=== PATIENT | female | born 1930 | race Caucasian/White ===

== ENCOUNTER 2016-06-10 18:48 | Emergency (ER) | payer BC, OTHER ==
[2016-06-10 18:57] VITALS: BP 125/57; PULSE 78; TEMP 98.2; BMI 26.8
--- NOTE | 2016-06-10 20:24 | PDOC ---
History of Present Illness - General History Source: Patient, Family, Old Records Exam Limitations: No Limitations - History of Present Illness Initial Comments: 06/10/16 20:32 The patient is a 86 year old female, accompanied by daughter, with a significant past medical history of UTI, mild dementia, cardiac disease, hypertension, bladder cancer, and diabetes who presents to the emergency department today for further evaluation of confusion for four days. As per daughter, the patient has not been responding to normal daily events appropriately and has difficulty completing basic tasks. As per daughter the patient has frequently starred off at nothing for extended periods of time and has been confusing her medications. The patient has been receiving BCG treatments since becoming cancer free in March. UROLOGIST: Dr. Owen Velazquez [phone] <Félix Thacker - Last Filed: 06/11/16 00:34> <Elena Brasher - Last Filed: 06/11/16 01:58> - General Chief Complaint: Altered Mental Status Stated Complaint: CONFUSED Time Seen by Provider: 06/10/16 19:23 Past History <Félix Thacker - Last Filed: 06/11/16 00:34> - Past Medical History Cardiac Disorders: Yes DVT: Yes (1970'S/PHLEBITIS) Dementia: Yes (MILD?) Diabetes: Yes HTN: Yes - Surgical History Appendectomy: Yes Cardiac Surgery: Yes (QUAD BYPASS 1995) - Immunization History Immunization Up to Date: Yes (FLU ) - Psycho/Social/Smoking Cessation Hx Anxiety: No Suicidal Ideation: No Smoking History: Never smoked Have you smoked in the past 12 months: No Number of Cigarettes Smoked Daily: 0 Hx Alcohol Use: No Drug/Substance Use Hx: No Substance Use Type: None <Elena Brasher - Last Filed: 06/11/16 01:58> - Past Medical History Allergies/Adverse Reactions: Allergies Allergy/AdvReac Type Severity Reaction Status Date / Time No Known Allergies Allergy Verified 06/10/16 18:57 Home Medications: Ambulatory Orders Aspirin [ASA -] 81 mg PO DAILY 02/04/16 Isosorbide Mononitrate [Imdur -] 60 mg PO DAILY 02/04/16 Metformin HCl [Metformin HCl ER] 500 mg PO BID 02/04/16 Metoprolol Succinate [Toprol Xl] 50 mg PO HS 02/04/16 Lisinopril [Prinivil] 20 mg PO DAILY tablet 02/07/16 Cefuroxime Axetil [Ceftin -] 500 mg PO Q12H #20 tablet 06/11/16 Review of Systems - Review of Systems Able to Perform ROS?: Yes Comments:: 06/10/16 20:32 CONSTITUTIONAL: Absent: fever, chills, diaphoresis, generalized weakness, malaise, loss of appetite HEENT: Absent: rhinorrhea, nasal congestion, throat pain, throat swelling, difficulty swallowing, mouth swelling, ear pain, eye pain, visual Changes CARDIOVASCULAR: Absent: chest pain, syncope, palpitations, irregular heart rate, lightheadedness , peripheral edema RESPIRATORY: Absent: cough, shortness of breath, dyspnea with exertion, orthopnea, wheezing, stridor, hemoptysis GASTROINTESTINAL: Absent: abdominal pain, abdominal distension, nausea, vomiting, diarrhea, constipation, melena, hematochezia GENITOURINARY: Absent: dysuria, frequency, urgency, hesitancy, hematuria, flank pain, genital pain MUSCULOSKELETAL: Absent: myalgia, arthralgia, joint swelling SKIN: Absent: rash, itching, pallor HEMATOLOGIC/IMMUNOLOGIC: Absent: easy bleeding, easy bruising, lymphadenopathy, frequent infections ENDOCRINE: Absent: unexplained weight gain, unexplained weight loss, heat intolerance, cold intolerance NEUROLOGIC: Absent: headache, focal weakness or paresthesias, dizziness, unsteady gait, seizure, mental status changes, bladder or bowel incontinence PSYCHIATRIC: Present: Confusion Absent: anxiety, depression, suicidal or homicidal ideation, hallucinations. <Félix Thacker - Last Filed: 06/11/16 00:34> *Physical Exam - Vital Signs Last Vital Signs Temp Pulse Resp BP Pulse Ox 98.2 F 78 20 125/57 98 06/10/16 18:52 06/10/16 18:52 06/10/16 18:52 06/10/16 18:52 06/10/16 18:52 - Physical Exam Comments: 06/10/16 20:32 GENERAL: Well developed, well nourished. Awake and alert. No acute distress. HEENT: Normocephalic, atraumatic. PERRLA, EOMI. No conjunctival pallor. Sclera are non- icteric. Moist mucous membranes. Oropharynx is clear. NECK: Supple. Full ROM. No JVD. Carotid pulses 2+ and symmetric, without bruits. No thyromegaly. No lymphadenopathy. CARDIOVASCULAR: (+) Holosystolic murmur Regular rate and rhythm. No rubs, or gallops. Distal pulses are 2+ and symmetric. PULMONARY: No evidence of respiratory distress. Lungs clear to auscultation bilaterally. No wheezing, rales or rhonchi. ABDOMINAL: Soft. Non-tender. Non-distended. No rebound or guarding. No organomegaly. Normoactive bowel sounds. MUSCULOSKELETAL Normal range of motion at all joints. No bony deformities or tenderness. No CVA tenderness. EXTREMITIES: (+) 2+ pitting edema. No cyanosis. No clubbing. No calf tenderness. SKIN: Warm and dry. Normal capillary refill. No rashes. No jaundice. NEUROLOGICAL: Alert, awake, appropriate. Cranial nerves 2-12 intact. No deficits to light touch and temperature in face, upper extremities and lower extremities. No motor deficits in the in face, upper extremities and lower extremities. Normoreflexic in the upper and lower extremities. Normal speech. Toes are down-going bilaterally. PSYCHIATRIC: Cooperative. Good eye contact. Appropriate mood and affect <Félix Thacker - Last Filed: 06/11/16 00:34> - Vital Signs Last Vital Signs Temp Pulse Resp BP Pulse Ox 98.2 F 78 20 125/57 98 06/10/16 18:52 06/10/16 18:52 06/10/16 18:52 06/10/16 18:52 06/10/16 18:52 <Elena Brasher - Last Filed: 06/11/16 01:58> Heart Score/ECG Review - ST and T Comment:: 06/10/16 20:33 ECG. IMPRESSION: Normal sinus rhythm. Septal infarct, age undetermined. Abnormal ECG. <Félix Thacker - Last Filed: 06/11/16 00:34> ED Treatment Course - LABORATORY CBC & Chemistry Diagram: 06/10/16 20:40 06/10/16 20:40 - RADIOLOGY Radiograph Interpretation: 06/10/16 20:53 1. CXR IMPRESSION: No official read. No acute findings. <Félix Thacker - Last Filed: 06/11/16 00:34> - LABORATORY CBC & Chemistry Diagram: 06/10/16 20:40 06/10/16 20:40 - RADIOLOGY Radiology Studies Ordered: Category Date Time Status CHEST X-RAY PORTABLE* [RAD] Stat Radiology 06/10/16 19:52 Taken <Elena Brasher - Last Filed: 06/11/16 01:58> Medical Decision Making - Medical Decision Making 06/11/16 00:[address] Armendariz. Dr. Francis is instructional coach. 06/11/16 00:36 Dr. Francis called into ER. Case discussed. Agreed to discharge. <Félix Thacker - Last Filed: 06/11/16 00:34> - Medical Decision Making 06/11/16 00:[address] Francis and reviewed the case -pt is receiving IVF and antibiotics for UTI -cbc is wnl -chemistry elevated bun=59, cr=1.1 -ct scan head :no acute intracranial pathology -neurology no gross focal deficits <Elena Brasher - Last Filed: 06/11/16 01:58> *DC/Admit/Observation/Transfer <Félix Thacker - Last Filed: 06/11/16 00:34> <Elena Brasher - Last Filed: 06/11/16 01:58> Diagnosis at time of Disposition: Dehydration UTI (urinary tract infection) Qualifiers: Urinary tract infection type: site unspecified Hematuria presence: without hematuria Qualified Code(s): N39.0 - Urinary tract infection, site not specified - Discharge Dispostion Disposition: HOME Condition at time of disposition: Stable - Prescriptions Prescriptions: Cefuroxime Axetil [Ceftin -] 500 mg PO Q12H #20 tablet - Referrals Referrals: Jaswant Armendariz MD [Primary Care Provider] - - Patient Instructions Printed Discharge Instructions: DI for Dehydration -- Adult, DI for Urinary Tract Infection (UTI) Additional Instructions: -please keep your doctor's appointment this week -please picker / packer your antibiotics at your pharmacy -It is important to keep well hydrated and drink water -return for any worsening symptoms
[2016-06-10 20:39] LABS: URINE APPEARANCE SLCLOUDY; URINE BILIRUBIN NEGATIVE (NEGATIVE); URINE COLOR DKYELLOW; URINE GLUCOSE (UA) NEGATIVE (NEGATIVE); URINE KETONE NEGATIVE (NEGATIVE); URINE NITRITE NEGATIVE (NEGATIVE); URINE PROTEIN NEGATIVE (NEGATIVE); URINE UROBILINOGEN NEGATIVE E.U./dl (0.2-1.0)
[2016-06-10 20:40] LABS: URINE BLOOD 2+ (NEGATIVE); URINE LEUK ESTERASE 1+ (NEGATIVE)
[2016-06-10 20:50] LABS: URINE MUCUS RARE; URINE RBC 58 /hpf (0-3); URINE WBC 35 /hpf (3-5)
[2016-06-10 20:51] LABS: EOSINOPHIL 4.3 % (0-4.5); MEAN CELL VOLUME 90.9 fl (80-96); MEAN PLT VOLUME 10.6 fl (7.5-11.1); NEUTROPHILS 65.5 % (42.8-82.8); PLATELET COUNT 183 K/MM3 (134-434); RDW 13.5 % (11.6-15.6); WHITE BLOOD COUNT 7.9 K/mm3 (4.0-10.0)
[2016-06-10 21:05] LABS: INR 0.96 (0.82-1.09); PROTHROMBIN TIME (PATIENT) 10.6 SEC (9.98-11.88)
[2016-06-10 21:23] LABS: ALBUMIN 3.7 g/dl (3.4-5.0); ALK PHOS 80 U/L (45-117); ANION GAP 9 (8-16); BILIRUBIN,TOTAL 0.1 mg/dL (0.2-1.0); CALCIUM 8.6 mg/dL (8.5-10.1); CO2 26 mmol/L (21-32); CREATININE 1.1 mg/dL (0.55-1.02); GLUCOSE,RANDOM 114 mg/dL (74-106); SGPT/ALT 20 U/L (12-78); TOT PROT 6.7 g/dl (6.4-8.2)
[2016-06-10 21:28] LABS: SGOT/AST 20 U/L (15-37); TROPONIN I < 0.02 ng/ml (0.00-0.05)
[2016-06-10] MEDS ORDERED: SODIUM CHLORIDE 1,000 ML IV STA (21:44)
[2016-06-10] MEDS ORDERED: LEVOFLOXACIN 500 MG IVPB 100 ML IVPB ONE ×2 (22:18→22:24)
--- NOTE | 2016-06-11 12:37 | EKG ---
Test Reason : Blood Pressure : / mmHG Vent. Rate : 077 BPM Atrial Rate : 077 BPM P-R Int : 118 ms QRS Dur : 090 ms QT Int : 380 ms P-R-T Axes : 046 -02 054 degrees QTc Int : 430 ms NORMAL SINUS RHYTHM SEPTAL INFARCT (CITED ON OR BEFORE 04-FEB-2016) ABNORMAL ECG WHEN COMPARED WITH ECG OF 04-FEB-2016 12:06, NO SIGNIFICANT CHANGE WAS FOUND Confirmed by KEITH RASHID, CYN ([id number]) on 06/11/2016 12:36:56 PM Referred By: Confirmed By:CYN PARKER MD
== END 2016-06-11 02:41 | disposition home or self-care (01) ==
LOC: JER 18:48
PROC: 3E0337Z Introduction of Electrolytic and Water Balance Substance into Peripheral Vein, Percutaneous Approach (ICD-10-PCS; principal; 2016-06-10)
PROC: 3E03329 Introduction of Other Anti-infective into Peripheral Vein, Percutaneous Approach (ICD-10-PCS; 2016-06-10)
DX: N39.0 Urinary tract infection, site not specified (principal); E86.0 Dehydration; I25.810 Atherosclerosis of coronary artery bypass graft(s) without angina pectoris; I10 Essential (primary) hypertension; Z95.1 Presence of aortocoronary bypass graft; E11.9 Type 2 diabetes mellitus without complications; Z79.84 Long term (current) use of oral hypoglycemic drugs
CPT/HCPCS: 36415; 70450-TC; 71010-TC; 80053; 81003; 81015; 82550; 84484; 85025; 85610; 87086; 93005; 93010; 96361; 96365; 99283-25

== ENCOUNTER 2016-10-07 23:55 | Inpatient (IN) | payer BC, OTHER ==
--- NOTE | 2016-10-08 00:13 | PDOC ---
History of Present Illness - History of Present Illness Initial Comments: 10/08/16 00:31 The patient is a 86 year old female, accompanied by daughter, with a significant past medical history of UTIs, mild dementia, cardiac disease, hypertension, bladder cancer, and diabetes who presents to the emergency department today with altered mental status s/p witnessed mechanical fall with posterior head trauma at 1:30PM. As per the patient's daughter, her mother had a mechanical fall, backwards with her rolling walker, and hit the back of her head on a concrete floor outside. The patient's daughter states the patient would not wake up prior to arrival, but states that when her mother did wake up , she could not recognize her daughter. <Lucia Ashby - Last Filed: 10/08/16 01:05> <Elena Brasher - Last Filed: 10/08/16 02:51> - General Chief Complaint: Altered Mental Status Stated Complaint: ALTERED MENTAL STATUS Time Seen by Provider: 10/08/16 00:00 Past History <Lucia Ashby - Last Filed: 10/08/16 01:05> - Past Medical History Cardiac Disorders: Yes DVT: Yes (1970'S/PHLEBITIS) Dementia: Yes (MILD?) Diabetes: Yes HTN: Yes - Surgical History Appendectomy: Yes Cardiac Surgery: Yes (QUAD BYPASS 1995) - Immunization History Immunization Up to Date: Yes (FLU ) - Psycho/Social/Smoking Cessation Hx Anxiety: No Suicidal Ideation: No Smoking History: Never smoked Have you smoked in the past 12 months: No Number of Cigarettes Smoked Daily: 0 Hx Alcohol Use: No Drug/Substance Use Hx: No Substance Use Type: None <Elena Brasher - Last Filed: 10/08/16 02:51> - Past Medical History Allergies/Adverse Reactions: Allergies Allergy/AdvReac Type Severity Reaction Status Date / Time No Known Allergies Allergy Verified 06/10/16 18:57 Home Medications: Ambulatory Orders Aspirin [ASA -] 81 mg PO DAILY 02/04/16 Isosorbide Mononitrate [Imdur -] 60 mg PO DAILY 02/04/16 Metformin HCl [Metformin HCl ER] 500 mg PO BID 02/04/16 Metoprolol Succinate [Toprol Xl] 50 mg PO HS 02/04/16 Lisinopril [Prinivil] 20 mg PO DAILY tablet 02/07/16 Review of Systems - Review of Systems Able to Perform ROS?: No (altered) <Lucia Ashby - Last Filed: 10/08/16 01:05> *Physical Exam - Physical Exam Comments: 10/08/16 00:35 GENERAL: (+) oriented to person and place, however, did not know age or month. Well developed, well nourished. Awake and alert. No acute distress. HEENT: Normocephalic, atraumatic. PERRLA, EOMI. No conjunctival pallor. Sclera are non- icteric. Moist mucous membranes. Oropharynx is clear. NECK: Supple. Full ROM. No JVD. Carotid pulses 2+ and symmetric, without bruits. No thyromegaly. No lymphadenopathy. CARDIOVASCULAR: Regular rate and rhythm. No murmurs, rubs, or gallops. Distal pulses are 2+ and symmetric. PULMONARY: No evidence of respiratory distress. Lungs clear to auscultation bilaterally. No wheezing, rales or rhonchi. ABDOMINAL: Soft. Non-tender. Non-distended. No rebound or guarding. No organomegaly. Normoactive bowel sounds. MUSCULOSKELETAL Normal range of motion at all joints. No bony deformities or tenderness. No CVA tenderness. EXTREMITIES: No cyanosis. No clubbing. No edema. No calf tenderness. SKIN: Warm and dry. Normal capillary refill. No rashes. No jaundice. NEUROLOGICAL: (+)dysmetria with [id number]. awake and alert to person and place, however, did not know age or month. Cranial nerves 2-12 intact. Normoreflexic in the upper and lower extremities. Normal speech. Toes are down-going bilaterally. No field cuts. No facial droop. Sensation intact to light touch. PSYCHIATRIC: Cooperative. Good eye contact. Appropriate mood and affect. <Lucia Ashby - Last Filed: 10/08/16 01:05> NIH Stroke Scale - Last Known Well Date/Time & Onset Date Last Known Well: 10/07/16 Time Last Known Well: 20:30 - Initial Evaluation Level of consciousness: Alert Ask patient the month and their age: Both incorrect Ask patient to open & close eyes; make fist and let go: Obeys both correctly Best gaze (horizontal eye movement): Normal Visual field testing: No visual field loss Facial paresis (Show teeth/raise eyebrows/close eyes tight): Normal symmetrical movement Motor Function: Left Arm: Normal Motor Function: Right Arm: Normal (extends arm 90 (or 45) degrees for 10 seconds without drift Motor Function: Left Leg: Normal (extends leg 30 degrees for 5 seconds without drift) Motor Function: Right Leg: Normal (extends leg 30 degrees for 5 seconds without drift) Limb Ataxia: Present in one limb Sensory(Use pinprick test arms,legs,trunk,face/side to side): Normal Best language (Describe picture, name items, read sentences): No Aphasia Dysarthria (read several words): Normal articulation Extinction and Inattention: No abnormality - Total Score NIH Stroke Scale Score: 3 <Elena Brasher - Last Filed: 10/08/16 02:51> tPA Exclusion checklist 3-4.5h - Time Elapsed Date last known well: 10/07/16 Time last known well: 20:30 Elaspsed time: Day(s) and 6 Hour(s) and 17 Minutes - Thrombolytic Therapy Candidate Is patient eligible for thrombolytic therapy: No - Exclusion Criteria 3-4.5 hr SBP greater than 185 or DBP greater than 110mmHg despite tx: No Recent IC/spinal surgery,head trauma or stroke<3mos.: No Hx IC hemorrhage, IC neoplasm, AV malformation or aneurysm: No Active internal bleeding: No Blding diathesis(low plt ct, inc PTT,INR>1.7 or use of NOAC): No Symptoms suggest subarachnoid hemorrhage: No CT demonstrates multilobar infarct(>1/3 cerebral hemiphere): No Arterial puncture at noncompressible site in previous 7 days: No Blood glucose concentration less than 50mg/dL (2.7mmol/L): No - Relative Exclusion Criteria 3-4.5 hr Life expectancy <1 yr or severe co-morbid illness: No : No Patient/family refused: No Rapid improvement: Yes Stroke severity too mild: Yes Recent acute OR (w/in previous 3 months): No Seizure at onset with postictal residual neuro impairments: No Major surgery or serious trauma w/in previous 14 days: No Recent GI or hemorrhage (w/in previous 21 days): No - Add'l Relative Exclusion 3-4.5 hr Age > 80: Yes Hx of both diabetes AND prior ischemic stroke: No Taking an oral anticoagulant regardless of INR: Yes NIHSS >25: No - Ineligibility reason(s) Reasons No tPA given: See reason(s) noted above (too mild) <Elena Brasher - Last Filed: 10/08/16 02:51> Critical Care Time/MDM Note - Medical Decision Making Note: 10/08/16 00:39 Documentation prepared by Lucia Ashby, acting as medical research tech for Elena Brasher MD <Lucia Ashby - Last Filed: 10/08/16 01:05> - Medical Decision Making Note: 10/08/16 01:36 86-year-old female brought in by ambulance for confusion. The daughter stated that 1:30 this afternoon. She fell backwards onto cement. She was evaluated by paramedics who felt that she was fine and this evening she noted about a 30 that she seemed to be confused and didn't recognize her daughter. Upon arrival NIH stroke scale was 380 with some confusion as to her age, the month and some ataxia. Patient was afebrile Past medical history significant for ongoing treatment for bladder cancer. She' s been receiving BCG. The last treatment being given about 10 days ago. The daughter states that she cc quite confused for several days after each treatment. Social history has been becoming more fatigued and easily falling asleep during the day. She was evaluated by Dr. Rosa Andrews math coach last Saturday. CAT scan of the head showed no fracture, no intracranial bleed, there was some loss of benjamin white matter in the inferior frontal lobes that may reflect early ischemia. I did speak with radiologist and he felt that this probably was an artifact. There are chronic appearing involutional changes due to aging 10/08/16 01:38 <Elena Brasher - Last Filed: 10/08/16 02:51> Discharge Disposition <Lucia Ashby - Last Filed: 10/08/16 01:05> - Discharge Dispostion Admit: Yes <Elena Brasher - Last Filed: 10/08/16 02:51> - Diagnosis UTI (urinary tract infection) Qualifiers: Urinary tract infection type: site unspecified Hematuria presence: without hematuria Qualified Code(s): N39.0 - Urinary tract infection, site not specified Altered mental status Qualifiers: Altered mental status type: unspecified Qualified Code(s): R41.82 - Altered mental status, unspecified Malignant neoplasm of urinary bladder Qualifiers: Bladder location: unspecified site Qualified Code(s): C67.9 - Malignant neoplasm of bladder, unspecified - Discharge Dispostion Condition at time of disposition: Good ED Treatment Course - LABORATORY CBC & Chemistry Diagram: 10/08/16 00:27 10/08/16 00:27 - ADDITIONAL ORDERS Additional order review: Laboratory Results 10/08/16 00:27 INR 0.95 10/08/16 00:27 RBC 3.53 L MCV 88.5 MCHC 32.3 RDW 13.4 MPV 10.4 Neutrophils % 61.5 Lymphocytes % 23.1 Monocytes % 10.5 H Eosinophils % 3.8 Basophils % 1.1 - RADIOLOGY Radiograph Interpretation: 10/08/16 01:05 EXAM: CTHEAD CT (STROKE) was read by Shayan Pisano MD 10/08/2016 01:00 EST HISTORY:Altered mental status and weakness COMPARISON: None. TECHNIQUE: CT Head with serial axial images extending from the vertex to the base of skull was performed without vascular contrast. FINDINGS: Brain parenchyma is normal in attenuation with no mass or hematoma. There is no midline shift. There is some lucency in the periventricular white matter. There is some loss of benjamin-white matter differentiation in the inferior frontal lobes bilaterally Ventricles are mildly prominent. Sulci and extra-axial CSF spaces are mildly prominent. Intracranial vascular structures are normal in attenuation. There is no calvarial fracture. Paranasal sinuses are normally aerated. IMPRESSION: No intracranial mass or bleed Some loss of benjamin-white matter differentiation in the inferior frontal lobes may reflect early ischemia. Correlation with history and exam is recommended Chronic appearing involutional changes of aging <Lucia Ashby - Last Filed: 10/08/16 01:05> - LABORATORY CBC & Chemistry Diagram: 10/08/16 00:27 10/08/16 00:27 <Elena Brasher - Last Filed: 10/08/16 02:51>
[2016-10-08] MEDS ORDERED: SODIUM CHLORIDE 1,000 ML IV SCH ×2 (00:30→04:00)
[2016-10-08 00:37] LABS: BASOPHIL 1.1 % (0-2.0); EOSINOPHIL 3.8 % (0-4.5); MCH 28.5 pg (25.7-33.7); MCHC 32.3 g/dl (32.0-36.0); MEAN CELL VOLUME 88.5 fl (80-96); MEAN PLT VOLUME 10.4 fl (7.5-11.1); NEUTROPHILS 61.5 % (42.8-82.8); PLATELET COUNT 159 K/MM3 (134-434); RDW 13.4 % (11.6-15.6); WHITE BLOOD COUNT 7.5 K/mm3 (4.0-10.0)
[2016-10-08 00:55] LABS: INR 0.95 (0.82-1.09); PROTHROMBIN TIME (PATIENT) 10.4 SEC (9.98-11.88)
[2016-10-08 01:04] LABS: ALBUMIN 3.2 g/dl (3.4-5.0); ANION GAP 8 (8-16); CALCIUM 8.6 mg/dL (8.5-10.1); CHOLESTEROL 138 mg/dL (50-200); CO2 26 mmol/L (21-32); GLUCOSE,RANDOM 127 mg/dL (74-106); SGOT/AST 15 U/L (15-37); SGPT/ALT 14 U/L (12-78)
[2016-10-08 01:08] LABS: ALK PHOS 90 U/L (45-117); BILIRUBIN,TOTAL 0.4 mg/dL (0.2-1.0); TOT PROT 5.7 g/dl (6.4-8.2); TROPONIN I < 0.02 ng/ml (0.00-0.05)
[2016-10-08 01:16] LABS: URINE APPEARANCE CLEAR; URINE BILIRUBIN NEGATIVE (NEGATIVE); URINE BLOOD NEGATIVE (NEGATIVE); URINE COLOR LTYELLOW; URINE GLUCOSE (UA) NEGATIVE (NEGATIVE); URINE KETONE NEGATIVE (NEGATIVE); URINE NITRITE NEGATIVE (NEGATIVE); URINE PROTEIN NEGATIVE (NEGATIVE); URINE UROBILINOGEN NEGATIVE mg/dL (0.2-1.0)
[2016-10-08 01:17] LABS: URINE LEUK ESTERASE 2+ (NEGATIVE)
[2016-10-08 01:19] LABS: URINE BACTERIA RARE /hpf (NONE SEEN); URINE RBC 2 /hpf (0-3); URINE WBC 86 /hpf (3-5)
[2016-10-08 01:31] LABS: LDL CHOLESTEROL (ONLY SJRH) 61 mg/dL (5-100)
--- NOTE | 2016-10-08 02:23 | PN ---
Teaching Attending Note Name of Resident: Chela Baumann ATTENDING PHYSICIAN STATEMENT I saw and evaluated the patient. I reviewed the resident's note and discussed the case with the resident. I agree with the resident's findings and plan as documented. SUBJECTIVE: 86 yo F with pmhx of HTN, DM, CAD s/p CABG, bladder ca s/p resection, mild dementia who presented s/p fall. Her fall was witnessed and it was mechanical as she fell backwards with her walker. She hit the back of her head on a concrete floor outside. As per enmanuel, she could not recognize her when she woke up. OBJECTIVE: Physical: VS: Vital Signs Period Temp Pulse Resp BP Sys/Lemus Pulse Ox Last 24 Hr 97.9 F 67 17 138/59 98 GEN: NAD, Resting in bed, Able to speak full sentences HEENT: NCAT, PERRL, THroat clear CARD: RRR S1, S2, STEPHANIE III/ RESP: CTAB ABD: BSX4, NTD to palpation EXT: - C/C/E NEURO: CN II- XII intact, no focal defecits Ambulatory Orders Aspirin [ASA -] 81 mg PO DAILY 02/04/16 Isosorbide Mononitrate [Imdur -] 60 mg PO DAILY 02/04/16 Metformin HCl [Metformin HCl ER] 500 mg PO BID 02/04/16 Metoprolol Succinate [Toprol Xl] 50 mg PO HS 02/04/16 Lisinopril [Prinivil] 20 mg PO DAILY tablet 02/07/16 CT HEAD- Some loss of boland-white matter differnciation in inferior frontal lobes , may reflect early ischemia. No intercranial Mass or bleed CXR- No acute process ASSESSMENT AND PLAN: 86 yo F w pmhx of HTN, DM, CAD S/P CABG, mild dementia who presented post fall, found to have a uti 1.) Altered Mental Status post fall - Most likely due to UTI, although CT Head read unsure of ischemia - UCx, Ceftriaxone - Cannot have MRI due metal , Echo, Carotids (recently done outpt) - ASA 2.) HTN - C/W home meds 3.) CAD S/P CABG - C/W current meds 4.) DM - FS - RAISS 5.) Dvt PPx - Low Risk- SCD Place in Obs
--- NOTE | 2016-10-08 02:23 | PN ---
Teaching Attending Note ATTENDING PHYSICIAN STATEMENT I saw and evaluated the patient. I reviewed the resident's note and discussed the case with the resident. I agree with the resident's findings and plan as documented. SUBJECTIVE: OBJECTIVE: ASSESSMENT AND PLAN:
[2016-10-08] MEDS ORDERED: CEFTRIAXONE 50 ML ONE (03:00)
--- NOTE | 2016-10-08 04:31 | HP ---
CHIEF COMPLAINT: AMS PCP: Dr. Armendariz Psych Social Worker: Dr. Andrews HISTORY OF PRESENT ILLNESS: 86yo woman originally from [place] with a PMH of CAD s/p quadruple bypass, HTN, DM , mild dementia, recurrent UTIs, Bladder Ca s/p resection and currently receiving BCG adjuvant treatment who had a witnessed posterior head fall earlier this afternoon and was BIBEMS 8+ hours later for AMS. The patient has a significant urological history with last treated UTI on August 30, and last BCG treatment for bladder Ca on September 27. Earlier today (approx 13:30), the daughter was attempting to pull the patient, who was seated in a rolling walker, over a curb. While doing so the chair tipped backwards and the back of the patient's head hit a concrete floor. The patient did not have LOC or any acute laceration/external trauma to her head. EMS evaluated the patient and found no acute deficits. Later in the evening, the daughter tried to wake up the pt who was sleeping on a sofa. The patient was difficult to arouse, which is a change from her baseline. The patient was confused, speech unclear, and did not initially recognize her daughter. The daughter called 911 due to the pt's increased confusion and fall earlier in the day. The patient denies any JENSEN, changes in vision, numbness/paresthesias in extremities. No recent fever, chills, n/v. No SOB, chest pain, pressure or tightness. The patients denies dysuria, frequency or urgency. Of note, the daughter reports that approximately 2 weeks ago the patient fell (unwitnessed) while at home, but with no LOC and with no residual focal deficits. ER course was notable for: (1) Afebrile, no leukocytosis (2) UA 2+ LE, pyuria (3) Received 1x dose Ceftriaxone 1gm IVP Recent Travel: no PAST MEDICAL HISTORY: #Bladder Ca - resection in Mar 2016 with BCG treatment (last and final on 09/27) #recurrent UTIs - most recent 08/30 #CAD s/p CABG #HTN #DM - per daughter, last week A1c 6.6% #Dementia - possible- went to neurologist 5y ago who at the time did not give her that diagnosis PAST SURGICAL HISTORY: #R hip fx repair - May 2016; possible retained metal product from drain that patient pulled out ([facility]) --> no MRI #quadruple CABG - 1995 #appendectomy Social History: Smoking: never Alcohol: no Drugs: no Family History: non-contributory Allergies: NKDA HOME MEDICATIONS: Home Medications Medication Instructions Recorded Aspirin [ASA -] 81 mg PO DAILY 02/04/16 Isosorbide Mononitrate [Imdur -] 60 mg PO DAILY 02/04/16 Metformin HCl [Metformin HCl ER] 500 mg PO BID 02/04/16 Metoprolol Succinate [Toprol Xl] 50 mg PO HS 02/04/16 Lisinopril [Prinivil] 20 mg PO DAILY tablet 02/07/16 REVIEW OF SYSTEMS CONSTITUTIONAL: Absent: fever, chills, diaphoresis, generalized weakness, malaise, loss of appetite, weight change HEENT: Absent: rhinorrhea, nasal congestion, throat pain, throat swelling, difficulty swallowing, mouth swelling, ear pain, eye pain, visual changes CARDIOVASCULAR: Absent: chest pain, syncope, palpitations, irregular heart rate, lightheadedness , peripheral edema RESPIRATORY: Absent: cough, shortness of breath, dyspnea with exertion, orthopnea, wheezing, stridor, hemoptysis GASTROINTESTINAL: Absent: abdominal pain, abdominal distension, nausea, vomiting, diarrhea, constipation, melena, hematochezia GENITOURINARY: Absent: dysuria, frequency, urgency, hesitancy, hematuria, flank pain, genital pain MUSCULOSKELETAL: Absent: myalgia, arthralgia, joint swelling, back pain, neck pain SKIN: Absent: rash, itching, pallor HEMATOLOGIC/IMMUNOLOGIC: Absent: easy bleeding, easy bruising, lymphadenopathy, frequent infections ENDOCRINE: Absent: unexplained weight gain, unexplained weight loss, heat intolerance, cold intolerance NEUROLOGIC: Absent: headache, focal weakness or paresthesias, dizziness, unsteady gait, seizure, mental status changes, bladder or bowel incontinence PSYCHIATRIC: Absent: anxiety, depression, suicidal or homicidal ideation, hallucinations. PHYSICAL EXAMINATION Vital Signs Period Temp Pulse Resp BP Sys/Lemus Pulse Ox Last 24 Hr 97.9 F 65-67 15-17 138-140/59-78 97-98 GENERAL: Awake, alert, and fully oriented, in no acute distress. HEAD: Normal with no signs of trauma. EYES: PERRLA, EOMI, sclera anicteric, conjunctiva clear EARS, NOSE, THROAT: Oropharynx clear without exudates. Moist mucous membranes. NECK: Supple, no cervical LAD LUNGS: CTAB, no wheezes, and no crackles. No accessory muscle use. HEART: rrr, normal S1 & S2, 3/6 systolic ejection murmur in RUSB ABDOMEN: Soft, NTND, normoactive bowel sounds, no guarding, no rebound, no masses. no hepatosplenomegaly : No CVA tenderness, no suprapubic tenderness LOWER EXTREMITIES: 1+ pedal edema b/l, 2+ DP/PT pulses bilaterally symmetric. NEUROLOGICAL: Cranial nerves II-XII intact. Normal speech. Motor exam: normal tone, 5/5 strength in all 4 extremities PSYCHIATRIC: Cooperative. Good eye contact. Appropriate mood and affect. SKIN: Warm, dry, normal turgor Labs: CBC,CMP WBC 7.5 K/mm3 (4.0-10.0) 10/08/16 00: RBC 3.53 M/mm3 (3.60-5.2) L 10/08/16 00: Hgb 10.1 GM/dL (10.7-15.3) L 10/08/16 00: Hct 31.2 % (32.4-45.2) L 10/08/16 00: MCV 88.5 fl (80-96) 10/08/16 00: MCH 28.5 pg (25.7-33.7) 10/08/16 00: MCHC 32.3 g/dl (32.0-36.0) 10/08/16 00: RDW 13.4 % (11.6-15.6) 10/08/16 00: Plt Count 159 K/MM3 (134-434) 10/08/16 00: MPV 10.4 fl (7.5-11.1) 10/08/16 00: Neutrophils % 61.5 % (42.8-82.8) 10/08/16: Lymphocytes % 23.1 % (8-40) 10/08/16: Monocytes % 10.5 % (3.8-10.2) H 10/08/16 00: Eosinophils % 3.8 % (0-4.5) 10/08/16: Basophils % 1.1 % (0-2.0) 10/08/16 00: Sodium 141 mmol/L (136-145) 10/08/16 00: Potassium 4.3 mmol/L (3.5-5.1) 10/08/16: Chloride 107 mmol/L (98-107) 10/08/16: Carbon Dioxide 26 mmol/L (21-32) 10/08/16 00: Anion Gap 8 (8-16) 10/08/16: BUN 41 mg/dL (7-18) H D 10/08/16 00:27 Creatinine 1.0 mg/dL (0.55-1.02) 10/08/16: Creat Clearance w eGFR 52.33 (>60) 10/08/16: Random Glucose 127 mg/dL (74-106) H 10/08/16 00: Calcium 8.6 mg/dL (8.5-10.1) 10/08/16 00: Total Bilirubin 0.4 mg/dL (0.2-1.0) D 10/08/16 00: AST 15 U/L (15-37) D 10/08/16 00: ALT 14 U/L (12-78) D 10/08/16 00: Alkaline Phosphatase 90 U/L (45-117) 10/08/16: Creatine Kinase 47 IU/L (26-192) 10/08/16 00: Troponin I < 0.02 ng/ml (0.00-0.05) 10/08/16 00: Total Protein 5.7 g/dl (6.4-8.2) L 10/08/16 00: Albumin 3.2 g/dl (3.4-5.0) L 10/08/16 00: Triglycerides 92 mg/dL (35-160) 10/08/16 00: Cholesterol 138 mg/dL (50-200) 10/08/16: Total LDL Cholesterol 61 mg/dL (5-100) 10/08/16 00: HDL Cholesterol 68 mg/dL (40-60) H 10/08/16 00:27 Urine Test Results Urine Color Ltyellow 10/08/16 00:56 Urine Appearance Clear 10/08/16 00:56 Urine pH 5.0 (5.0-8.0) 10/08/16 00:56 Urine Protein Negative (NEGATIVE) 10/08/16 00:56 Urine Glucose (UA) Negative (NEGATIVE) 10/08/16 00:56 Urine Ketones Negative (NEGATIVE) 10/08/16 00:56 Urine Blood Negative (NEGATIVE) 10/08/16 00:56 Urine Nitrite Negative (NEGATIVE) 10/08/16 00:56 Urine Bilirubin Negative (NEGATIVE) 10/08/16 00:56 Ur Leukocyte Esterase 2+ (NEGATIVE) H 10/08/16 00:56 Urine RBC 2 /hpf (0-3) 10/08/16 00:56 Urine WBC 86 /hpf (3-5) 10/08/16 00:56 Urine Bacteria Rare /hpf (NONE SEEN) 10/08/16 00:56 INR, PTT INR 0.95 (0.82-1.09) 10/08/16 00:27 Non-con Head CT 10/07/2016: "No intracranial mass or bleed Some loss of benjamin- white matter differentiation in the inferior frontal lobes may reflect early ischemia. Correlation with history and exam is recommended Chronic appearing involutional changes of aging." CXR 10/07/2016: No pneumothorax, pleural effusion, or consolidation ASSESSMENT/PLAN: 86yo woman with PMH of CAD s/p CABG, HTN, DM, recurrent UTIs, bladder Ca resected in Mar 2016 with current adjuvant BCG treatments who presents after witnessed mechanical fall earlier today with development of AMS later in the evening and found to have likely UTI. #AMS: UTI vs possible infarct vs progressing dementia -Head CT preliminary report cannot r/o early ischemia; will hold CVA w/u until official radiological report; Per daughter - pt received carotid doppler/ECHO recently as OP. Of note - no MRI due to possible retained metal product following hip sx. -Neuro checks q4h -Neurology consulted (Dr. Scherer) -UA c/w with UTI (2+ LE, pyuria) - will start treatment with Ceftriaxone 1gm IVP Q24h -Urine Cx pending #DM -Hold home metformin -BGM ACHS -ISS ACHS #HTN -Continue home Lisinopril 20mg PO daily -Continue home Metoprolol ER 50mg PO HS -Continue home Isosorbide mononitrate 60mg PO daily #CAD -Continue home ASA 81mg #F/E/N -NS @ 42cc/hr (1bag) -Electrolytes wnl -Diabetic and Na controlled diet #DVT prophylaxis -low risk - on home ASA 81mg -b/l SCD's #Dispo -Admit for Observation -Likely discharge home -FULL code d/w medical team JACEY ONEAL MD PGY-1 Visit type - Emergency Visit Emergency Visit: Yes ED Registration Date: 10/08/16 Care time: The patient presented to the Emergency Department on the above date and was hospitalized for further evaluation of their emergent condition. - New Patient This patient is new to me today: Yes Date on this admission: 10/08/16 - Critical Care Critical Care patient: No
[2016-10-08] MEDS ORDERED: METOPROLOL SUCCINATE 50 MG TAB.SR.24H (FP) PO ONE (04:47)
[2016-10-08 04:49] VITALS: BMI 25.9
[2016-10-08] MEDS: INSULIN SLIDING SCALE (NOVOLOG) 1 VIAL SQ SCH ×4 (06:17→23:33)
--- NOTE | 2016-10-08 08:42 | PN ---
Physical Exam: SUBJECTIVE: Patient seen and examined at bedside. Pt complained of itching all over. No other complaints at this time. No acute events overnight. Pt denies headache, cp, sob, abd pain, nausea, vomiting, diarrhea, dysuria, fevers. OBJECTIVE: Vital Signs Period Temp Pulse Resp BP Sys/Lemus Pulse Ox Last 24 Hr 98.2 F-98.2 F 60-60 18-18 173-173/62-62 96-96 GENERAL: The patient is awake, alert, and fully oriented, in no acute distress. HEAD: Normal with no signs of trauma. No lesions EYES: sclera anicteric, conjunctiva clear. No ptosis. ENT: oropharynx clear without exudates, moist mucous membranes. NECK: Trachea midline, full range of motion, supple. LUNGS: Breath sounds equal, clear to auscultation bilaterally, no wheezes, no crackles, no accessory muscle use. HEART: Regular rate and rhythm, normal S1, S2 blowing 3/6 systolic murmur heard best on R sternal border, no rub or gallop. ABDOMEN: Soft, nontender, nondistended, normoactive bowel sounds, no guarding, no rebound, no hepatosplenomegaly, no masses. EXTREMITIES: 2+ pulses, warm, well-perfused, no edema. NEUROLOGICAL: Cranial nerves II through XII grossly intact. Normal speech, gait not observed. muscle strength 5/5 b/l in shoulder abduction, elbow flexion/extension , hip flexion, knee extension, dorsi/plantar flexion. Sensation intact throughout. Reflexes not able to be elicited. PSYCH: Normal mood, normal affect. SKIN: Warm, dry, normal turgor, no rashes or lesions noted Laboratory Results - last 24 hr 10/08/16 06:07 POC Glucometer 90 Active Medications Generic Name Dose Route Start Last Admin Trade Name Freq PRN Reason Stop Dose Admin Aspirin 81 mg 10/08/16 10:00 Asa - PO DAILY [facility] Ceftriaxone Sodium 1 gm 10/09/16 03:00 Rocephin 1gm Ivpb (Pre-Docked) IVPB Q24H [facility] Protocol Sodium Chloride 1,000 mls @ 42 mls/hr 10/08/16 04:00 Normal Saline - IV 10/09/16 03:49 ASDIR [facility] Insulin Aspart 1 vial 10/08/16 07:00 10/08/16 06:17 Novolog Vial Sliding Scale - SQ Not Given ACHS [facility] Protocol Isosorbide Mononitrate 60 mg 10/08/16 10:00 Imdur - PO DAILY [facility] Lisinopril 20 mg 10/08/16 10:00 Prinivil PO DAILY [facility] Metoprolol Succinate 50 mg 10/08/16 22:00 Toprol Xl - PO HS [facility] ASSESSMENT/PLAN: 86yo woman with PMH of CAD s/p CABG, HTN, DM, recurrent UTIs, bladder Ca resected in Mar 2016 with current adjuvant BCG treatments who presents after witnessed mechanical fall earlier today with development of AMS later in the evening and found to have likely UTI. #AMS secondary to UTI, possibly due to dementia -UA 2+ LE, WBC 86 -Urine Cx pending -Ceftriaxone 1gm IVP Q24h #r/o traumatic brain injury/dementia -Head CT preliminary report cannot r/o early ischemia; will hold CVA w/u until official radiological report; Per daughter - pt received carotid doppler/ECHO recently as OP. Of note - no MRI due to possible retained metal product following hip sx. -Neuro checks q4h -Neurology consulted (Dr. Scherer) #Pruritis -f/u TSH, T3, T4 -f/u lytes #DM -Hold home metformin -BGM ACHS -ISS ACHS #HTN -Continue home Lisinopril 20mg PO daily -Continue home Metoprolol ER 50mg PO HS -Continue home Isosorbide mononitrate 60mg PO daily #CAD -Continue home ASA 81mg #F/E/N -NS @ 42cc/hr (1bag) -Electrolytes wnl -Diabetic and Na controlled diet #prophylaxis -DVT: low risk - on home ASA 81mg, Heparin SubQ -GI: Not indicated -Deconditioning: PT #Dispo -Admit to med/surg for AMS 2/2 UTI -FULL code Visit type - Emergency Visit Emergency Visit: No - New Patient This patient is new to me today: No - Critical Care Critical Care patient: No
[2016-10-08] MEDS: ISOSORBIDE MONONITRATE 60 MG TAB.SR.24H (FP) PO SCH (09:00)
[2016-10-08] MEDS: ASPIRIN 81 MG CHEWABLE TABLETS PO SCH (09:00)
[2016-10-08] MEDS: LISINOPRIL 20 MG TABLET (FP) PO SCH (09:00)
--- NOTE | 2016-10-08 09:11 | EKG ---
Test Reason : Blood Pressure : / mmHG Vent. Rate : 065 BPM Atrial Rate : 065 BPM P-R Int : 132 ms QRS Dur : 098 ms QT Int : 438 ms P-R-T Axes : 063 -11 047 degrees QTc Int : 455 ms NORMAL SINUS RHYTHM SEPTAL INFARCT (CITED ON OR BEFORE 04-FEB-2016) ABNORMAL ECG WHEN COMPARED WITH ECG OF 10-JUN-2016 20:20, NO SIGNIFICANT CHANGE WAS FOUND Confirmed by CHRISTOPHER RASHID, SHANTI ([id number]) on 10/08/2016 9:10:51 AM Referred By: Confirmed By:SHANTI WHITE MD
[2016-10-08] MEDS ORDERED: CEFTRIAXONE 50 ML IVPB SCH (10:00)
[2016-10-08] MEDS: HEPARIN NA (PORCINE) 5,000 UNITS/ML 1ML VIAL SQ SCH ×2 (11:22→23:17)
--- NOTE | 2016-10-08 16:40 | HOSP ---
Subjective - Review of Symptoms Events since last encounter: Patient is confused, she thinks that she lives with her brothers and sisters who are older than her. She knows that she is in the hospital. Feels weak. Uses walker to ambulate at home. Vital Signs Temperature 97.9 F 10/08/16 14:53 Pulse Rate 62 10/08/16 14:53 Respiratory Rate 18 10/08/16 14:53 Blood Pressure 117/49 10/08/16 14:53 O2 Sat by Pulse Oximetry (%) 96 10/08/16 10:00 CBCD WBC 7.5 K/mm3 (4.0-10.0) 10/08/16 00:27 RBC 3.53 M/mm3 (3.60-5.2) L 10/08/16 00:27 Hgb 10.1 GM/dL (10.7-15.3) L 10/08/16 00:27 Hct 31.2 % (32.4-45.2) L 10/08/16 00:27 MCV 88.5 fl (80-96) 10/08/16 00:27 MCHC 32.3 g/dl (32.0-36.0) 10/08/16 00:27 RDW 13.4 % (11.6-15.6) 10/08/16 00:27 Plt Count 159 K/MM3 (134-434) 10/08/16 00:27 MPV 10.4 fl (7.5-11.1) 10/08/16 00:27 CMP Sodium 141 mmol/L (136-145) 10/08/16 00:27 Potassium 4.3 mmol/L (3.5-5.1) 10/08/16 00:27 Chloride 107 mmol/L (98-107) 10/08/16 00:27 Carbon Dioxide 26 mmol/L (21-32) 10/08/16 00:27 Anion Gap 8 (8-16) 10/08/16 00:27 BUN 41 mg/dL (7-18) H D 10/08/16 00:27 Creatinine 1.0 mg/dL (0.55-1.02) 10/08/16 00:27 Creat Clearance w eGFR 52.33 (>60) 10/08/16 00:27 Random Glucose 127 mg/dL (74-106) H 10/08/16 00:27 Calcium 8.6 mg/dL (8.5-10.1) 10/08/16 00:27 Total Bilirubin 0.4 mg/dL (0.2-1.0) D 10/08/16 00:27 AST 15 U/L (15-37) D 10/08/16 00:27 ALT 14 U/L (12-78) D 10/08/16 00:27 Alkaline Phosphatase 90 U/L (45-117) 10/08/16 00:27 Total Protein 5.7 g/dl (6.4-8.2) L 10/08/16 00:27 Albumin 3.2 g/dl (3.4-5.0) L 10/08/16 00:27 CARDIAC ENZYMES Creatine Kinase 47 IU/L (26-192) 10/08/16 00:27 Troponin I < 0.02 ng/ml (0.00-0.05) 10/08/16 00:27 Current Medications Generic Name Dose Route Start Last Admin Trade Name Анна PRN Reason Stop Dose Admin Aspirin 81 mg 10/08/16 10:00 10/08/16 09:00 Asa - PO 81 mg DAILY [facility] Administration Ceftriaxone Sodium 1 gm 10/09/16 03:00 Rocephin 1gm Ivpb (Pre-Docked) IVPB Q24H [facility] Protocol Heparin Sodium (Porcine) 5,000 unit 10/08/16 11:15 10/08/16 11:22 Heparin - SQ 5,000 unit BID [facility] Administration Sodium Chloride 1,000 mls @ 42 mls/hr 10/08/16 04:00 10/08/16 09:01 Normal Saline - IV 10/09/16 03:49 42 mls/hr ASDIR [facility] Administration Insulin Aspart 1 vial 10/08/16 07:00 10/08/16 11:21 Novolog Vial Sliding Scale - SQ Not Given ACHS [facility] Protocol Isosorbide Mononitrate 60 mg 10/08/16 10:00 10/08/16 09:00 Imdur - PO 60 mg DAILY [facility] Administration Lisinopril 20 mg 10/08/16 10:00 10/08/16 09:00 Prinivil PO 20 mg DAILY [facility] Administration Metoprolol Succinate 50 mg 10/08/16 22:00 Toprol Xl - PO HS [facility] Urine Test Results Urine Color Ltyellow 10/08/16 00:56 Urine Appearance Clear 10/08/16 00:56 Urine pH 5.0 (5.0-8.0) 10/08/16 00:56 Ur Specific Ava 1.020 (1.005-1.025) 10/08/16 00:56 Urine Protein Negative (NEGATIVE) 10/08/16 00:56 Urine Glucose (UA) Negative (NEGATIVE) 10/08/16 00:56 Urine Ketones Negative (NEGATIVE) 10/08/16 00:56 Urine Blood Negative (NEGATIVE) 10/08/16 00:56 Urine Nitrite Negative (NEGATIVE) 10/08/16 00:56 Urine Bilirubin Negative (NEGATIVE) 10/08/16 00:56 Ur Leukocyte Esterase 2+ (NEGATIVE) H 10/08/16 00:56 Urine RBC 2 /hpf (0-3) 10/08/16 00:56 Urine WBC 86 /hpf (3-5) 10/08/16 00:56 Urine Bacteria Rare /hpf (NONE SEEN) 10/08/16 00:56 PE: per resident's note CVS: STEPHANIE 3/6, S1S2 positive. abdomen: soft. NT, NR. ext: pulses are positive Mental status: confused Head CT: negative CXR: positive for thoracotomy, no active disease reported ASSESSMENT AND PLAN: 86 yo F w pmhx of HTN, DM, CAD S/P CABG, mild dementia who presented post fall, found to have a uti # Altered Mental Status s/p fall, most likely due to UTI # Acute UTI on Rocephin continue # HTN controlled , continue home meds # Hx of CAD S/P CABG continue current meds # T2DM sliding scale with coverage. Dvt PPx : will palce her on heparin sq changed obs. to Inpatient services. Physical Examination Vital Signs: Vital Signs Temperature 97.9 F 10/08/16 14:53 Pulse Rate 62 10/08/16 14:53 Respiratory Rate 18 10/08/16 14:53 Blood Pressure 117/49 10/08/16 14:53 O2 Sat by Pulse Oximetry (%) 96 10/08/16 10:00
--- NOTE | 2016-10-08 17:22 | CON.NEURO ---
Consult - History of Present Illness History of Present Illness: 86yo woman originally from [place] with a PMH of CAD s/p quadruple bypass, HTN, DM , mild dementia, recurrent UTIs, Bladder Ca s/p resection and currently receiving BCG adjuvant treatment who had a witnessed posterior head fall - called for MS. urological history with last treated UTI on August 30, and last BCG treatment for bladder Ca on September 27. s/p fall off chair -no LOC or any acute laceration/external trauma to her head. EMS evaluated the patient and found no acute deficits. Later in the evening, the daughter tried to wake up the pt who was sleeping on a sofa. Difficulty waking up later in day. The patient denies any JENSEN, changes in vision, numbness/paresthesias in extremities. No recent fever, chills, n/v. No SOB, chest pain, pressure or tightness. The patients denies dysuria, frequency or urgency. Of note, the daughter reports that approximately 2 weeks ago the patient fell (unwitnessed) while at home, but with no LOC and with no residual focal deficits. being treated for UTI CT HD BL frontal white matter changes. - Past Medical History Cardio/Vascular: Yes: CAD, HTN Endocrine: Yes: Diabetes Mellitus - Past Surgical History Past Surgical History: Yes: CABG - Alcohol/Substance Use Hx Alcohol Use: No - Smoking History Smoking history: Never smoked Have you smoked in the past 12 months: No Aproximately how many cigarettes per day: 0 Home Medications - Allergies Allergies/Adverse Reactions: Allergies Allergy/AdvReac Type Severity Reaction Status Date / Time No Known Allergies Allergy Verified 06/10/16 18:57 - Home Medications Home Medications: Ambulatory Orders Aspirin [ASA -] 81 mg PO DAILY 02/04/16 Isosorbide Mononitrate [Imdur -] 60 mg PO DAILY 02/04/16 Metformin HCl [Metformin HCl ER] 500 mg PO BID 02/04/16 Metoprolol Succinate [Toprol Xl] 50 mg PO HS 02/04/16 Lisinopril [Prinivil] 20 mg PO DAILY tablet 02/07/16 Folic Acid 1 mg PO 10/08/16 Physical Exam-Neuro Vital Signs: Vital Signs Temperature 97.9 F 10/08/16 14:53 Pulse Rate 62 10/08/16 14:53 Respiratory Rate 18 10/08/16 14:53 Blood Pressure 117/49 10/08/16 14:53 O2 Sat by Pulse Oximetry (%) 96 10/08/16 10:00 Constitutional: Yes: Well Nourished, No Distress Neck: Yes: Supple (Awake, conversive and in good spirits, follows requests, EOMI , VFF, no focal weakness, reflexes symmtetric, gait not tested--in wheelchair) Labs: INR, PTT INR 0.95 (0.82-1.09) 10/08/16 00:27 Troponin, BNP 10/08/16 00: Troponin I < 0.02 CBCD WBC 7.5 K/mm3 (4.0-10.0) 10/08/16 00: RBC 3.53 M/mm3 (3.60-5.2) L 10/08/16 00: Hgb 10.1 GM/dL (10.7-15.3) L 10/08/16 00:27 Hct 31.2 % (32.4-45.2) L 10/08/16 00: MCV 88.5 fl (80-96) 10/08/16 00:27 MCHC 32.3 g/dl (32.0-36.0) 10/08/16 00: RDW 13.4 % (11.6-15.6) 10/08/16 00: Plt Count 159 K/MM3 (134-434) 10/08/16 00:27 MPV 10.4 fl (7.5-11.1) 10/08/16 00:27 CMP Sodium 141 mmol/L (136-145) 10/08/16 00:27 Potassium 4.3 mmol/L (3.5-5.1) 10/08/16 00:27 Chloride 107 mmol/L (98-107) 10/08/16 00: Carbon Dioxide 26 mmol/L (21-32) 10/08/16 00:27 Anion Gap 8 (8-16) 10/08/16 00:27 BUN 41 mg/dL (7-18) H D 10/08/16 00:27 Creatinine 1.0 mg/dL (0.55-1.02) 10/08/16 00:27 Creat Clearance w eGFR 52.33 (>60) 10/08/16 00:27 Calcium 8.6 mg/dL (8.5-10.1) 10/08/16 00:27 Total Bilirubin 0.4 mg/dL (0.2-1.0) D 10/08/16 00:27 AST 15 U/L (15-37) D 10/08/16 00:27 ALT 14 U/L (12-78) D 10/08/16 00:27 Alkaline Phosphatase 90 U/L (45-117) 10/08/16 00:27 Total Protein 5.7 g/dl (6.4-8.2) L 10/08/16 00:27 Albumin 3.2 g/dl (3.4-5.0) L 10/08/16 00:27 NIH Stroke Scale - Total Score NIH Stroke Scale Score: 0 Imaging - Results Cat Scan: Report Reviewed, Image Reviewed Problem List - Problems (1) Altered mental status Code(s): R41.82 - ALTERED MENTAL STATUS, UNSPECIFIED Qualifiers: Altered mental status type: unspecified Qualified Code(s): R41.82 - Altered mental status, unspecified (2) Bladder cancer Code(s): C67.9 - MALIGNANT NEOPLASM OF BLADDER, UNSPECIFIED Qualifiers: Bladder location: unspecified site Qualified Code(s): C67.9 - Malignant neoplasm of bladder, unspecified (3) UTI (urinary tract infection) Code(s): N39.0 - URINARY TRACT INFECTION, SITE NOT SPECIFIED Qualifiers: Urinary tract infection type: site unspecified Hematuria presence: without hematuria Qualified Code(s): N39.0 - Urinary tract infection, site not specified (4) Dementia Code(s): F03.90 - UNSPECIFIED DEMENTIA WITHOUT BEHAVIORAL DISTURBANCE Assessment/Plan 86yo woman originally from [place] with a PMH of CAD s/p quadruple bypass, HTN, DM , mild dementia, recurrent UTIs, Bladder Ca s/p resection and currently receiving BCG adjuvant treatment who had a witnessed posterior head fall - called for MS. urological history with last treated UTI on August 30, and last BCG treatment for bladder Ca on September 27. s/p fall and change in mentation-- look close to baseline , ? UTI encephalopathy vs dehydration ; no signs of concussion, stroke, bleed. CT HD BL frontal white matter changes. likely underling dementia - cont ABX , fluids thanks Dr Wilde [phone]
[2016-10-08] MEDS ORDERED: METOPROLOL SUCCINATE 50 MG TAB.SR.24H (FP) PO SCH (22:00)
[2016-10-09] MEDS ORDERED: cefTRIAXone 1 GM/50 ML BAG (PRE-DOCKED) IVPB SCH (03:00)
[2016-10-09] MEDS ORDERED: CEFTRIAXONE 50 ML IVPB SCH (03:00)
[2016-10-09] MEDS: INSULIN SLIDING SCALE (NOVOLOG) 1 VIAL SQ SCH ×2 (06:39→11:18)
[2016-10-09 08:08] LABS: BASOPHIL 1.1 % (0-2.0); EOSINOPHIL 5.9 % (0-4.5); MCH 29.1 pg (25.7-33.7); MCHC 32.8 g/dl (32.0-36.0); MEAN CELL VOLUME 88.6 fl (80-96); MEAN PLT VOLUME 10.5 fl (7.5-11.1); NEUTROPHILS 63.1 % (42.8-82.8); PLATELET COUNT 163 K/MM3 (134-434); RDW 13.7 % (11.6-15.6); WHITE BLOOD COUNT 6.6 K/mm3 (4.0-10.0)
[2016-10-09 08:34] LABS: ALBUMIN 3.1 g/dl (3.4-5.0); ALK PHOS 81 U/L (45-117); ANION GAP 7 (8-16); BILIRUBIN,TOTAL 0.3 mg/dL (0.2-1.0); CALCIUM 8.6 mg/dL (8.5-10.1); CO2 28 mmol/L (21-32); CREATININE 0.7 mg/dL (0.55-1.02); FREE T4 0.96 ng/dl (0.76-1.46); GLUCOSE,RANDOM 123 mg/dL (74-106); SGOT/AST 17 U/L (15-37); SGPT/ALT 15 U/L (12-78); THYROID STIMULATING HORMONE 2.46 uIU/ml (0.358-3.74); TOT PROT 5.8 g/dl (6.4-8.2)
[2016-10-09 09:07] LABS: MAGNESIUM 2.1 mg/dL (1.8-2.4); PHOSPHOROUS 3.9 mg/dL (2.5-4.9)
--- NOTE | 2016-10-09 10:51 | PN ---
Physical Exam: SUBJECTIVE: Patient seen and examined at bedside. Pt was confused overnight. Pt has varied between understanding where she is and believing she is in [place] many years ago living with her parents. She is generally AAOx3 even when she believes her parents are alive and well. Pt was complaining that she was not allowed to walk around freely. Mildly agitated. OBJECTIVE: Vital Signs Period Temp Pulse Resp BP Sys/Lemus Pulse Ox Last 24 Hr 7.1 F-98.0 F 58-66 18-18 117-158/49-72 96 GENERAL: The patient is awake, alert, and fully oriented, in no acute distress. HEAD: Normal with no signs of trauma. EYES: sclera anicteric, conjunctiva clear. No ptosis. ENT: oropharynx clear without exudates, moist mucous membranes. NECK: Trachea midline, full range of motion, supple. LUNGS: Breath sounds equal, clear to auscultation bilaterally, no wheezes, no crackles, no accessory muscle use. HEART: Regular rate and rhythm, normal S1, S2 without murmur, rub or gallop. ABDOMEN: Soft, nontender, nondistended, normoactive bowel sounds, no guarding, no rebound, no hepatosplenomegaly, no masses. EXTREMITIES: 2+ pulses, warm, well-perfused, no edema. NEUROLOGICAL: Cranial nerves II through XII grossly intact. Normal speech, gait not observed. PSYCH: Normal mood, normal affect. SKIN: Warm, dry, normal turgor, no rashes or lesions noted Laboratory Results - last 24 hr 10/08/16 10/08/16 10/09/16 17:33 23:32 06:38 WBC RBC Hgb Hct MCV MCH MCHC RDW Plt Count MPV Neutrophils % Lymphocytes % Monocytes % Eosinophils % Basophils % Sodium Potassium Chloride Carbon Dioxide Anion Gap BUN Creatinine Creat Clearance w eGFR POC Glucometer 153 113 121 Random Glucose Calcium Total Bilirubin AST ALT Alkaline Phosphatase Total Protein Albumin TSH Free T4 10/09/16 10/09/16 07:30 07:30 WBC 6.6 RBC 3.88 Hgb 11.3 D Hct 34.4 MCV 88.6 MCH 29.1 MCHC 32.8 RDW 13.7 Plt Count 163 MPV 10.5 Neutrophils % 63.1 Lymphocytes % 21.0 Monocytes % 8.9 Eosinophils % 5.9 H Basophils % 1.1 Sodium 141 Potassium 3.9 Chloride 106 Carbon Dioxide 28 Anion Gap 7 L BUN 24 H D Creatinine 0.7 D Creat Clearance w eGFR > 60 POC Glucometer Random Glucose 123 H Calcium 8.6 Total Bilirubin 0.3 D AST 17 ALT 15 Alkaline Phosphatase 81 Total Protein 5.8 L Albumin 3.1 L TSH 2.46 Free T4 0.96 Active Medications Generic Name Dose Route Start Last Admin Trade Name Paulq PRN Reason Stop Dose Admin Aspirin 81 mg 10/08/16 10:00 10/08/16 09:00 Asa - PO 81 mg DAILY VANDANA Administration Ceftriaxone Sodium 1 gm 10/09/16 03:00 10/09/16 04:09 Rocephin 1gm Ivpb (Pre-Docked) IVPB 1 gm Q24H VANDANA Administration Protocol Heparin Sodium (Porcine) 5,000 unit 10/08/16 11:15 10/08/16 23:17 Heparin - SQ Not Given BID VANDANA Insulin Aspart 1 vial 10/08/16 07:00 10/09/16 06:39 Novolog Vial Sliding Scale - SQ Not Given ACHS VANDANA Protocol Isosorbide Mononitrate 60 mg 10/08/16 10:00 10/08/16 09:00 Imdur - PO 60 mg DAILY VANDANA Administration Lisinopril 20 mg 10/08/16 10:00 10/08/16 09:00 Prinivil PO 20 mg DAILY VANDANA Administration Metoprolol Succinate 50 mg 10/08/16 22:00 10/08/16 23:24 Toprol Xl - PO 50 mg HS VANDANA Administration ASSESSMENT/PLAN: 86yo woman with PMH of CAD s/p CABG, HTN, DM, recurrent UTIs, bladder Ca resected in Mar 2016 with current adjuvant BCG treatments who presents after witnessed mechanical fall earlier today with development of AMS later in the evening and found to have likely UTI. #AMS secondary to UTI, possibly due to dementia -UA 2+ LE, WBC 86 -Urine Cx contaminated. Will repeat -Ceftriaxone 1gm IVP Q24h #r/o traumatic brain injury/dementia -Head CT preliminary report cannot r/o early ischemia; will hold CVA w/u until official radiological report; Per daughter - pt received carotid doppler/ECHO recently as OP. Of note - no MRI due to possible retained metal product following hip sx. -Neuro checks q4h -Neurology consulted (Dr. Scherer) #Pruritis -TSH: 2.46, T3: pending, T4: 0.96 -lytes: BUN: 24, random glucose: 123, total protein: 5.8, albumin: 3.1 #DM -Hold home metformin -BGM ACHS -ISS ACHS #HTN -Continue home Lisinopril 20mg PO daily -Continue home Metoprolol ER 50mg PO HS -Continue home Isosorbide mononitrate 60mg PO daily #CAD -Continue home ASA 81mg #F/E/N -NS @ 42cc/hr (1bag) -Electrolytes wnl -Diabetic and Na controlled diet #prophylaxis -DVT: low risk - on home ASA 81mg, Heparin SubQ -GI: Not indicated -Deconditioning: PT #Dispo -Admit to med/surg for AMS 2/2 UTI -FULL code
[2016-10-09] MEDS: ASPIRIN 81 MG CHEWABLE TABLETS PO SCH (11:09)
[2016-10-09] MEDS: ISOSORBIDE MONONITRATE 60 MG TAB.SR.24H (FP) PO SCH (11:09)
[2016-10-09] MEDS: LISINOPRIL 20 MG TABLET (FP) PO SCH (11:10)
[2016-10-09] MEDS: HEPARIN NA (PORCINE) 5,000 UNITS/ML 1ML VIAL SQ SCH (11:10)
[2016-10-09 14:50] VITALS: BP 125/61; PULSE 62; TEMP 97.8
--- NOTE | 2016-10-09 16:05 | PN ---
Teaching Attending Note Name of Resident: Patrice Mac ATTENDING PHYSICIAN STATEMENT I saw and evaluated the patient. I reviewed the resident's note and discussed the case with the resident. I agree with the resident's findings and plan as documented. SUBJECTIVE: Patient is sitting on the wheelchair , Happy singing ,daughter at bedside, able to recognize her daughter, able to tell you the month and the year. Patient wants to go home. OBJECTIVE: Vital Signs Temperature 97.8 F 10/09/16 14:48 Pulse Rate 62 10/09/16 14:48 Respiratory Rate 20 10/09/16 14:48 Blood Pressure 125/61 10/09/16 14:48 O2 Sat by Pulse Oximetry (%) 96 10/09/16 10:00 CBCD WBC 6.6 K/mm3 (4.0-10.0) 10/09/16 07:30 RBC 3.88 M/mm3 (3.60-5.2) 10/09/16 07:30 Hgb 11.3 GM/dL (10.7-15.3) D 10/09/16 07:30 Hct 34.4 % (32.4-45.2) 10/09/16 07:30 MCV 88.6 fl (80-96) 10/09/16 07:30 MCHC 32.8 g/dl (32.0-36.0) 10/09/16 07:30 RDW 13.7 % (11.6-15.6) 10/09/16 07:30 Plt Count 163 K/MM3 (134-434) 10/09/16 07:30 MPV 10.5 fl (7.5-11.1) 10/09/16 07:30 CMP Sodium 141 mmol/L (136-145) 10/09/16 07:30 Potassium 3.9 mmol/L (3.5-5.1) 10/09/16 07:30 Chloride 106 mmol/L (98-107) 10/09/16 07:30 Carbon Dioxide 28 mmol/L (21-32) 10/09/16 07:30 Anion Gap 7 (8-16) L 10/09/16 07:30 BUN 24 mg/dL (7-18) H D 10/09/16 07:30 Creatinine 0.7 mg/dL (0.55-1.02) D 10/09/16 07:30 Creat Clearance w eGFR > 60 (>60) 10/09/16 07:30 Random Glucose 123 mg/dL (74-106) H 10/09/16 07:30 Calcium 8.6 mg/dL (8.5-10.1) 10/09/16 07:30 Total Bilirubin 0.3 mg/dL (0.2-1.0) D 10/09/16 07:30 AST 17 U/L (15-37) 10/09/16 07:30 ALT 15 U/L (12-78) 10/09/16 07:30 Alkaline Phosphatase 81 U/L (45-117) 10/09/16 07:30 Total Protein 5.8 g/dl (6.4-8.2) L 10/09/16 07:30 Albumin 3.1 g/dl (3.4-5.0) L 10/09/16 07:30 CARDIAC ENZYMES Creatine Kinase 47 IU/L (26-192) 10/08/16 00:27 Troponin I < 0.02 ng/ml (0.00-0.05) 10/08/16 00:27 Current Medications Generic Name Dose Route Start Last Admin Trade Name Freq PRN Reason Stop Dose Admin Aspirin 81 mg 10/08/16 10:00 10/09/16 11:09 Asa - PO 81 mg DAILY VANDANA Administration Ceftriaxone Sodium 1 gm 10/09/16 03:00 10/09/16 04:09 Rocephin 1gm Ivpb (Pre-Docked) IVPB 1 gm Q24H VANDANA Administration Protocol Heparin Sodium (Porcine) 5,000 unit 10/08/16 11:15 10/09/16 11:10 Heparin - SQ 5,000 unit BID VANDANA Administration Insulin Aspart 1 vial 10/08/16 07:00 10/09/16 11:18 Novolog Vial Sliding Scale - SQ Not Given ACHS [facility] Protocol Isosorbide Mononitrate 60 mg 10/08/16 10:00 10/09/16 11:09 Imdur - PO 60 mg DAILY VANADNA Administration Lisinopril 20 mg 10/08/16 10:00 10/09/16 11:10 Prinivil PO 20 mg DAILY VANDANA Administration Metoprolol Succinate 50 mg 10/08/16 22:00 10/08/16 23:24 Toprol Xl - PO 50 mg HS VANDANA Administration Home Medications Medication Instructions Recorded Aspirin [ASA -] 81 mg PO DAILY 02/04/16 Isosorbide Mononitrate [Imdur -] 60 mg PO DAILY 02/04/16 Metformin HCl [Metformin HCl ER] 500 mg PO BID 02/04/16 Metoprolol Succinate [Toprol Xl] 50 mg PO HS 02/04/16 Lisinopril [Prinivil] 20 mg PO DAILY tablet 02/07/16 Folic Acid 1 mg PO DAILY 10/08/16 wheelchair 1 each MC DAILY #1 each 10/09/16 physical therapy daily 1 each MC DAILY #1 unit 10/09/16 ASSESSMENT AND PLAN: PE: per resident's note CVS: STEPHANIE 3/, S1S2 positive. abdomen: soft. NT, NR. ext: pulses are positive Mental status: confused Head CT: negative CXR: positive for thoracotomy, no active disease reported ASSESSMENT AND PLAN: 86 yo F w pmhx of HTN, DM, CAD S/P CABG, mild dementia who presented post fall, found to have a uti # Altered Mental Status s/p fall, most likely due to UTI, improved completed the antibiotic course # Acute UTI resolved ,completed IV Rocephin . will stop antibiotics # HTN controlled , continue home meds # Hx of CAD S/P CABG continue current meds # T2DM sliding scale with coverage. Patient was discharged home, daughter at her bedside..
--- NOTE | 2016-10-09 19:45 | DS ---
Physical Exam: SUBJECTIVE: Patient seen and examined at bedside. No acute events. No complaints at this time. Pt denies headache, cp, sob, nausea, vomiting, diarrhea , dysuria. OBJECTIVE: Vital Signs Period Temp Pulse Resp BP Sys/Lemus Pulse Ox Last 24 Hr 7.1 F-98.3 F 62-91 18-20 125-158/61-82 96-96 PHYSICAL EXAM GENERAL: The patient is awake, alert, and fully oriented, in no acute distress. HEAD: Normal with no signs of trauma. EYES: PERRL, extraocular movements intact, sclera anicteric, conjunctiva clear. ENT: Ears normal, nares patent, oropharynx clear without exudates, moist mucous membranes. NECK: Trachea midline, full range of motion, supple. LUNGS: Breath sounds equal, clear to auscultation bilaterally, no wheezes, no crackles, no accessory muscle use. HEART: Regular rate and rhythm, S1, S2 without murmur, rub or gallop. ABDOMEN: Soft, nontender, nondistended, normoactive bowel sounds, no guarding, no rebound, no hepatosplenomegaly, no masses. EXTREMITIES: 2+ pulses, warm, well-perfused, no edema. NEUROLOGICAL: Cranial nerves II through XII grossly intact. Normal speech, gait not observed. PSYCH: Normal mood, normal affect. SKIN: Warm, dry, normal turgor, no rashes or lesions noted. LABS Laboratory Results - last 24 hr 10/08/16 10/09/16 10/09/16 23:32 06:38 07:30 WBC RBC Hgb Hct MCV MCH MCHC RDW Plt Count MPV Neutrophils % Lymphocytes % Monocytes % Eosinophils % Basophils % Sodium 141 Potassium 3.9 Chloride 106 Carbon Dioxide 28 Anion Gap 7 L BUN 24 H D Creatinine 0.7 D Creat Clearance w eGFR > 60 POC Glucometer 113 121 Random Glucose 123 H Calcium 8.6 Total Bilirubin 0.3 D AST 17 ALT 15 Alkaline Phosphatase 81 Total Protein 5.8 L Albumin 3.1 L TSH 2.46 Free T4 0.96 10/09/16 10/09/16 07:30 11:17 WBC 6.6 RBC 3.88 Hgb 11.3 D Hct 34.4 MCV 88.6 MCH 29.1 MCHC 32.8 RDW 13.7 Plt Count 163 MPV 10.5 Neutrophils % 63.1 Lymphocytes % 21.0 Monocytes % 8.9 Eosinophils % 5.9 H Basophils % 1.1 Sodium Potassium Chloride Carbon Dioxide Anion Gap BUN Creatinine Creat Clearance w eGFR POC Glucometer 142 Random Glucose Calcium Total Bilirubin AST ALT Alkaline Phosphatase Total Protein Albumin TSH Free T4 HOSPITAL COURSE: Date of Admission:10/08/16 Date of Discharge: 10/09/16 This is an 86 yo Faro[place] female with a past medical history of CAD, HTN, DM, mild dementia, bladder cancer, and recurrent UTIs. She has had a quadruple bypass in 1995 and is currently receiving BCG treatment for the bladder cancer. Patient was admitted on October 08, 2016, for altered mental status following posterior head trauma due to a fall. #Altered mental status Patient stated that her daughter was assisting her out of a chair on October 07, 2016, and as she was being lifted, the patient fell backwards and hit the posterior side of her head. There was no loss of consciousness, bruising, lacerations, or acute neurological deficits. Later in the evening, the daughter tried to wake the patient up, where she was difficult to arouse. CT of the head shows bilateral frontal white matter changes. MRI cannot be obtained because of the possibility that there may be a piece of metal in her right hip from a prior hip replacement. The patient pulled a catheter, which likely left a piece of metal inside. Patient is alert and oriented x 2, but her daughter states this has been her state of mentality since May of 2016. The patient has been seeing her primary care physician, Dr. Jaswant Armendariz, for over 20 years and has a good relationship. The daughter stated that Dr. Armendariz noticed her decline in mentality during their last encounter earlier in September. The patient has a history of dementia, and her altered mental status is close to her baseline. Neurological consult stated that the altered mental status is likely to be from the underlying dementia and that this is her baseline. #Bladder Cancer Patient was diagnosed with bladder cancer in January of 2016. She has been receiving BCG adjuvant treatments following the diagnosis. Her last treatment was on September 27, 2016. #UTI Patient was found to have a UTI when admitted. Urine samples were contaminated. Patient is currently taking ceftriaxone sodium 1 gm IVpb (50 ml at 100 mls/hr) for UTI management. # DM Patient has a history of diabetes mellitus. It is currently being controlled with Insulin Aspart sliding scale and metformin 500 mg PO BID. #CAD Patient has a history of coronary artery disease. She had a quadruple bypass in 1995. Currently she is taking isosorbide mononitrate 60 mg PO daily, aspirin 81 mg PO daily, and heparin 5000 unit SQ BID. #HTN Patient has a history of hypertension. She is currently taking Lisinopril 20 mg PO daily and Metoprolol Succinate 50 mg PO HS. The patient was stable for discharge. Minutes to complete discharge: 45 Discharge Summary Reason For Visit: URINARY TRACT INFECTION,MALIGNANT NEOPLASM OF URI- Current Active Problems Altered mental status (Acute) UTI (urinary tract infection) (Acute) Bladder cancer (Chronic) Dementia (Chronic) Condition: Good - Instructions Diet, Activity, Other Instructions: You were admitted to the hospital because of a urinary tract infection with confusion. You were treated for the infection and you were seen by the neurologist. You had various imaging studies done which aided in the diagnosis and treatment of your condition. Your head CT ruled out any bleeding inside the head. You are at your baseline, and your signs and symptoms of infection have resolved. You have an appointment with Dr. Wilde in 1 week. You have an appointment with Dr. Armendariz in 1 week. Please take all your medications as directed. Please follow up with your doctor' s appointments. If you have any serious symptoms please return to the emergency department. Referrals: Jaswant Armendariz MD [Staff Physician] - 1 Week Quincy Wilde DO [Staff Physician] - 1 Week Disposition: VNS/HOME HEALTH CARE - Home Medications Comprehensive Discharge Medication List: Ambulatory Orders Aspirin [ASA -] 81 mg PO DAILY 02/04/16 Isosorbide Mononitrate [Imdur -] 60 mg PO DAILY 02/04/16 Metformin HCl [Metformin HCl ER] 500 mg PO BID 02/04/16 Metoprolol Succinate [Toprol Xl] 50 mg PO HS 02/04/16 Lisinopril [Prinivil] 20 mg PO DAILY tablet 02/07/16 Folic Acid 1 mg PO DAILY 10/08/16 Walker [Ultra-Light Rollator] 1 each MC DAILY #1 each 10/09/16 Walker [Ultra-Light Rollator] 1 each MC DAILY #1 unit 10/09/16 This patient is new to me today: Yes Date on this admission: 10/10/16 Emergency Visit: No Critical Care patient: No - Discharge Referral Referred to [facility] Med P.C.: No
== END 2016-10-09 16:33 | disposition home health service (06) | DRG 690 ==
LOC: JER 23:55 → JERBED 10-08 03:31 → UNDOADMOB 10-08 03:31 → INTOOBSV 10-08 03:31 → JERBED 10-08 04:00 → J5S 10-08 04:40 → JERBED 10-08 04:40 → OBSVTOIN 10-08 11:15
PROVIDERS: ADMIT Internal Medicine; ATTEND Internal Medicine
DX: N39.0 Urinary tract infection, site not specified (principal); C67.9 Malignant neoplasm of bladder, unspecified; I25.10 Atherosclerotic heart disease of native coronary artery without angina pectoris; Z95.1 Presence of aortocoronary bypass graft; E11.9 Type 2 diabetes mellitus without complications; Z79.84 Long term (current) use of oral hypoglycemic drugs; I10 Essential (primary) hypertension; L29.9 Pruritus, unspecified; F03.90 Unspecified dementia, unspecified severity, without behavioral disturbance, psychotic disturbance, mood disturbance, and anxiety; W18.39XA Other fall on same level, initial encounter; Y93.89 Activity, other specified; Y92.480 Sidewalk as the place of occurrence of the external cause
CPT/HCPCS: 36415; 70450-TC; 71010-TC; 80053; 81003; 81015; 82465; 82550; 83718; 83721; 83735; 84100; 84439; 84443; 84478; 84481; 84484; 85025; 85610; 86850; 86900; 86901; 87086; 93005; 93010; 97116-GP; 97161-GP; 99285-25; G0378; J1644

== ENCOUNTER 2016-10-09 19:28 | Emergency (ER) | payer BC, OTHER ==
--- NOTE | 2016-10-09 20:35 | PDOC ---
History of Present Illness - General Chief Complaint: Head/Neck problem Stated Complaint: FALL Time Seen by Provider: 10/09/16 20:02 - History of Present Illness Initial Comments: 10/09/16 20:48 Patient is an 86-year-old female brought in by ambulance with past medical history of CAD status post quadruple bypass, HTN, DM, mild dementia, recurrent UTIs, bladder cancer status post resection currently receiving BCG treatment had a unwitnessed fall this evening. Patient states that she was trying to get up from the kitchen table after chopping some garlic when she felt her feet slide from under her. She states she may or may not have hit her head, and that her left shoulder hurts. Her daughter is present and states that she did not witness the fall. Patient had a difficult time getting up after falling and the ambulance was called. Patient was recently discharged from this facility earlier today after falling on Saturday. Admits to fatigue. Patient denies loss of consciousness, lightheadedness, dizziness, weakness, headache, neck pain, chest pain, shortness of breath, cough, nausea, vomiting and diarrhea. Past History - Travel Traveled outside of the country in the last 30 days: No Close contact w/someone who was outside of country & ill: No - Past Medical History Allergies/Adverse Reactions: Allergies Allergy/AdvReac Type Severity Reaction Status Date / Time No Known Allergies Allergy Verified 10/09/16 21:55 Home Medications: Ambulatory Orders Aspirin [ASA -] 81 mg PO DAILY 02/04/16 Isosorbide Mononitrate [Imdur -] 60 mg PO DAILY 02/04/16 Metformin HCl [Metformin HCl ER] 500 mg PO BID 02/04/16 Metoprolol Succinate [Toprol Xl] 50 mg PO HS 02/04/16 Lisinopril [Prinivil] 20 mg PO DAILY tablet 02/07/16 Folic Acid 1 mg PO DAILY 10/08/16 Walker [Ultra-Light Rollator] 1 each MC DAILY #1 each 10/09/16 Walker [Ultra-Light Rollator] 1 each MC DAILY #1 unit 10/09/16 Cardiac Disorders: Yes DVT: Yes (1970'S/PHLEBITIS) Dementia: Yes (MILD?) Diabetes: Yes HTN: Yes - Surgical History Appendectomy: Yes Cardiac Surgery: Yes (QUAD BYPASS 1995) - Immunization History Immunization Up to Date: Yes (FLU ) - Psycho/Social/Smoking Cessation Hx Anxiety: No Suicidal Ideation: No Smoking History: Never smoked Have you smoked in the past 12 months: No Number of Cigarettes Smoked Daily: 0 Information on smoking cessation initiated: No Hx Alcohol Use: No Drug/Substance Use Hx: No Substance Use Type: None Review of Systems - Review of Systems Able to Perform ROS?: Yes Comments:: 10/09/16 22:40 CONSTITUTIONAL: Absent: fever, chills, diaphoresis, generalized weakness, malaise, loss of appetite HEENT: Absent: rhinorrhea, nasal congestion, throat pain, throat swelling, difficulty swallowing, mouth swelling, ear pain, eye pain, visual Changes CARDIOVASCULAR: Absent: chest pain, loss of consciousness, palpitations, irregular heart rate, peripheral edema RESPIRATORY: Absent: cough, shortness of breath, dyspnea with exertion, orthopnea, wheezing, stridor, hemoptysis GASTROINTESTINAL: Absent: abdominal pain, abdominal distension, nausea, vomiting, diarrhea, constipation, melena, hematochezia GENITOURINARY: Absent: dysuria, frequency, urgency, hesitancy, hematuria, flank pain, genital pain MUSCULOSKELETAL: Positive: L shoulder pain. Absent: myalgia, arthralgia, joint swelling SKIN: Absent: rash, itching, pallor HEMATOLOGIC/IMMUNOLOGIC: Absent: easy bleeding, easy bruising, lymphadenopathy, frequent infections ENDOCRINE: Absent: unexplained weight gain, unexplained weight loss, heat intolerance, cold intolerance NEUROLOGIC: Absent: headache, focal weakness or paresthesias, dizziness, unsteady gait, seizure, mental status changes, bladder or bowel incontinence PSYCHIATRIC: Absent: anxiety, depression, suicidal or homicidal ideation, hallucinations. Is the patient limited Croatian proficient: No *Physical Exam - Vital Signs Last Vital Signs Temp Pulse Resp BP Pulse Ox 98.3 F 72 14 159/111 100 10/09/16 20:04 10/09/16 20:04 10/09/16 20:04 10/09/16 20:04 10/09/16 20:04 - Physical Exam Comments: 10/09/16 22:40 GENERAL: Well developed, well nourished. Awake and alert. No acute distress. HEENT: Normocephalic, atraumatic. PERRLA, EOMI. No conjunctival pallor. Sclera are non- icteric. Moist mucous membranes. Oropharynx is clear. NECK: Supple. Full ROM. No JVD. Carotid pulses 2+ and symmetric, without bruits. No thyromegaly. No lymphadenopathy. CARDIOVASCULAR: Regular rate and rhythm. No murmurs, rubs, or gallops. Distal pulses are 2+ and symmetric. PULMONARY: No evidence of respiratory distress. Lungs clear to auscultation bilaterally. No wheezing, rales or rhonchi. ABDOMINAL: Soft. Non-tender. Non-distended. No rebound or guarding. No organomegaly. Normoactive bowel sounds. MUSCULOSKELETAL Normal range of motion at all joints. No bony deformities or tenderness. No CVA tenderness. EXTREMITIES: No cyanosis. No clubbing. No edema. No calf tenderness. SKIN: Warm and dry. Normal capillary refill. No rashes. No jaundice. NEUROLOGICAL: Alert, awake, appropriate. Cranial nerves 2-12 intact. No deficits to light touch and temperature in face, upper extremities and lower extremities. No motor deficits in the in face, upper extremities and lower extremities. Normoreflexic in the upper and lower extremities. Normal speech. Toes are down- going bilaterally. Gait is normal without ataxia. PSYCHIATRIC: Cooperative. Good eye contact. Appropriate mood and affect. ED Treatment Course - RADIOLOGY Radiology Studies Ordered: Category Date Time Status HEAD CT WITHOUT CONTRAST [CT] Stat CT Scan 10/09/16 20:33 Ordered SHOULDER-LEFT [RAD] Stat Radiology 10/09/16 20:34 Ordered Medical Decision Making - Medical Decision Making 10/09/16 21:01 Patient is an 86-year-old female brought in by ambulance with past medical history of CAD status post quadruple bypass, HTN, DM, mild dementia, recurrent UTIs, bladder cancer status post resection currently receiving BCG treatment had a unwitnessed fall this evening. Patient was thus discharged from this hospital earlier today. Lab work is within normal limits. We'll rule out intracranial hemorrhage since it was unwitnessed fall. Patient is mentating well and alert and oriented 3. 1. CT head, L shoulder x-ray 2. UA,UC 3. Re-evaluate 10/09/16 22:[address]: No acute intracranial patholog Shoulder x-ray: appears negative UA negative. Will discharge home at this time. mechanical trip and fall; no acute injuries. Pt. understands that she needs to use her walker as she has been unsteady on her feet. Pt. to follow up with her PCP and neuro in one week. All discharge instructions were understood and all questions were answered at this time. *DC/Admit/Observation/Transfer Diagnosis at time of Disposition: Accident due to mechanical fall without injury Qualifiers: Encounter type: initial encounter Qualified Code(s): W19.XXXA - Unspecified fall, initial encounter - Discharge Dispostion Disposition: HOME Admit: No - Referrals Referrals: Jaswant Armendariz MD [Primary Care Provider] - - Patient Instructions Printed Discharge Instructions: How to Prevent Falls Additional Instructions: Your CAT scan today was negative. Your shoulder x-ray is also negative. It is important to prevent future falls. Use your walker as prescribed, do not walk without it. You may use ice on the shoulder if it continues to hurt. You may have ibuprofen as needed for pain not to exceed 3000 mg per day. Follow up with your primary care doctor within the week. Return to the emergency department if you have another fall, lose consciousness , have a change in your awareness or alertness, weakness, dizziness or any other changes in her symptoms.
--- NOTE | 2016-10-09 20:45 | PDOC ---
*Physical Exam - Vital Signs Last Vital Signs Temp Pulse Resp BP Pulse Ox 98.3 F 72 14 159/111 100 10/09/16 20:04 10/09/16 20:04 10/09/16 20:04 10/09/16 20:04 10/09/16 20:04 Medical Decision Making - Medical Decision Making 10/09/16 20:44 agree with care from KISHORE Nye *DC/Admit/Observation/Transfer Diagnosis at time of Disposition: Accident due to mechanical fall without injury - Discharge Dispostion Disposition: HOME - Referrals Referrals: Jaswant Armendariz MD [Primary Care Provider] - - Patient Instructions Printed Discharge Instructions: How to Prevent Falls Additional Instructions: Your CAT scan today was negative. Your shoulder x-ray is also negative. It is important to prevent future falls. Use your walker as prescribed, do not walk without it. You may use ice on the shoulder if it continues to hurt. You may have ibuprofen as needed for pain not to exceed 3000 mg per day. Follow up with your primary care doctor within the week. Return to the emergency department if you have another fall, lose consciousness , have a change in your awareness or alertness, weakness, dizziness or any other changes in her symptoms.
[2016-10-09 21:04] VITALS: BMI 24.9
[2016-10-09 21:06] LABS: URINE APPEARANCE CLEAR; URINE BILIRUBIN NEGATIVE (NEGATIVE); URINE BLOOD NEGATIVE (NEGATIVE); URINE COLOR STRAW; URINE GLUCOSE (UA) NEGATIVE (NEGATIVE); URINE KETONE NEGATIVE (NEGATIVE); URINE LEUK ESTERASE TRACE (NEGATIVE); URINE NITRITE NEGATIVE (NEGATIVE); URINE PROTEIN NEGATIVE (NEGATIVE); URINE UROBILINOGEN NEGATIVE mg/dL (0.2-1.0)
[2016-10-09 21:12] LABS: URINE RBC 1 /hpf (0-3); URINE WBC 8 /hpf (3-5)
[2016-10-09 23:06] VITALS: BP 153/96; PULSE 70; TEMP 98
== END 2016-10-09 23:12 | disposition home or self-care (01) ==
LOC: JER 19:28
DX: S09.90XA Unspecified injury of head, initial encounter (principal); W07.XXXA Fall from chair, initial encounter; Y93.G1 Activity, food preparation and clean up; Y92.010 Kitchen of single-family (private) house as the place of occurrence of the external cause; I10 Essential (primary) hypertension; E11.9 Type 2 diabetes mellitus without complications; F03.90 Unspecified dementia, unspecified severity, without behavioral disturbance, psychotic disturbance, mood disturbance, and anxiety; Z95.1 Presence of aortocoronary bypass graft; Z87.440 Personal history of urinary (tract) infections; R26.89 Other abnormalities of gait and mobility; Z99.89 Dependence on other enabling machines and devices
CPT/HCPCS: 70450-TC; 73030-TC-LT; 81003; 81015; 87086; 99283-25

== ENCOUNTER 2016-11-29 23:59 | Observation (INO) | payer BC, OTHER ==
--- NOTE | 2016-11-30 00:12 | PDOC ---
History of Present Illness - General History Source: Patient, Family Exam Limitations: No Limitations - History of Present Illness Initial Comments: 11/30/16 01:04 The patient is an 86 year old female, with significant past medical history of frequent UTIs, CAD s/p quadruple bypass, hypertension, DM, mild dementia, right hip surgery, bladder cancer s/p resection, who presents to the emergency room [facility] with her daughter complaining of altered mental status. The daughter explains that they were watching a movie together at 8:00pm and noticed that the patient fell asleep right away. When the movie was over around 10:40pm, the daughter attempted to wake up the patient to get ready for bed and she could not get her to wake up. She was less responsive and out of it. The daughter decided to give her some time and went to clean up the kitchen. She returned 10 minutes later and the patient was still difficult to arouse. She states that she would not open her eyes but started counting in [place]ian which was very unusual. The daughter even attempted to push a dolly under the patient on the couch and she was not bothered by the movement at all. She then called the ambulance. Patient states that she does not remember an ambulance coming to the house and riding to the ER. The daughter notes that the patient has been incredibly lucid over the past 2 weeks, so this episode is very unusual. Upon arrival to the ED, the daughter notes that the patient seems more "with it" than she was initially. Denies any recent falls or head injury. Denies neck pain. Denies taking any sleep aids. Allergies: NKDA PCP: Dr. Jaswant Armendariz Irrigationist: Dr. Shaquille Lester Neurologist: Dr. Quincy Wilde Desk Pen Set Assembler: Dr. Eufemia Ulrich <Courtney Modi - Last Filed: 11/30/16 02:02> <Harley Bazan - Last Filed: 11/30/16 02:22> - General Stated Complaint: ALT MENTAL STATUS Time Seen by Provider: 11/30/16 00:04 NIH Stroke Scale - Last Known Well Date/Time & Onset Date Last Known Well: 11/29/16 Time Last Known Well: 20:30 - Initial Evaluation Level of consciousness: Alert Ask patient the month and their age: Answers both correctly Ask patient to open & close eyes; make fist and let go: Obeys both correctly Best gaze (horizontal eye movement): Normal Visual field testing: No visual field loss Facial paresis (Show teeth/raise eyebrows/close eyes tight): Normal symmetrical movement Motor Function: Left Arm: Normal Motor Function: Right Arm: Normal (extends arm 90 (or 45) degrees for 10 seconds without drift Motor Function: Left Leg: Normal (extends leg 30 degrees for 5 seconds without drift) Motor Function: Right Leg: Normal (extends leg 30 degrees for 5 seconds without drift) Limb Ataxia: No ataxia Sensory(Use pinprick test arms,legs,trunk,face/side to side): Normal Best language (Describe picture, name items, read sentences): No Aphasia Dysarthria (read several words): Normal articulation Extinction and Inattention: No abnormality - Total Score NIH Stroke Scale Score: 0 <Harley Bazan - Last Filed: 11/30/16 02:22> tPA Exclusion checklist 3-4.5h - Thrombolytic Therapy Candidate Is patient eligible for thrombolytic therapy: No - Relative Exclusion Criteria 3-4.5 hr Stroke severity too mild: Yes - Ineligibility reason(s) Reasons No tPA given: Outside of window - delayed arrival <Harley Bazan - Last Filed: 11/30/16 02:22> Past History <Courtney Modi - Last Filed: 11/30/16 02:02> - Past Medical History Cardiac Disorders: Yes DVT: Yes (1970'S/PHLEBITIS) Dementia: Yes (MILD?) Diabetes: Yes HTN: Yes - Surgical History Appendectomy: Yes Cardiac Surgery: Yes (QUAD BYPASS 1995) - Immunization History Immunization Up to Date: Yes (FLU ) - Psycho/Social/Smoking Cessation Hx Anxiety: No Suicidal Ideation: No Smoking History: Never smoked Have you smoked in the past 12 months: No Number of Cigarettes Smoked Daily: 0 Hx Alcohol Use: No Drug/Substance Use Hx: No Substance Use Type: None <Harley Bazan - Last Filed: 11/30/16 02:22> - Past Medical History Allergies/Adverse Reactions: Allergies Allergy/AdvReac Type Severity Reaction Status Date / Time No Known Allergies Allergy Verified 10/09/16 21:55 Home Medications: Ambulatory Orders Aspirin [ASA -] 81 mg PO DAILY 02/04/16 Isosorbide Mononitrate [Imdur -] 60 mg PO DAILY 02/04/16 Metformin HCl [Metformin HCl ER] 500 mg PO BID 02/04/16 Metoprolol Succinate [Toprol Xl] 50 mg PO HS 02/04/16 Lisinopril [Prinivil] 20 mg PO DAILY tablet 02/07/16 Folic Acid 1 mg PO DAILY 10/08/16 Walker [Ultra-Light Rollator] 1 each MC DAILY #1 each 10/09/16 Walker [Ultra-Light Rollator] 1 each MC DAILY #1 unit 10/09/16 Review of Systems - Review of Systems Constitutional: No: Chills, Fever Respiratory: No: Cough, Shortness of Breath Cardiac (ROS): No: Chest Pain ABD/GI: No: Diarrhea, Vomiting : Yes: Frequency, Urgency. No: Dysuria, Flank Pain Musculoskeletal: No: Muscle Pain Neurological: No: Headache All Other Systems: Reviewed and Negative <Harley Bazan - Last Filed: 11/30/16 02:22> *Physical Exam - Physical Exam Comments: 11/30/16 01:06 GENERAL: The patient is awake, alert, and fully oriented, in no acute distress. HEAD: Normal with no signs of trauma. EYES: Pupils equal, round and reactive to light, extraocular movements intact, sclera anicteric, conjunctiva clear with no pallor. ENT: Ears normal, nares patent, oropharynx clear without exudates. Moist mucous membranes. NECK: Normal range of motion, supple without lymphadenopathy, JVD, or masses. LUNGS: Breath sounds equal, clear to auscultation bilaterally. No wheeze/ crackles. HEART: Regular rate with 3 /6 systolic ejection murmur heard loudest at the right sternal border, No rubs, gallops. ABDOMEN: +questionable increased discomfort to the suprapubic region. Soft, nondistended. BS wnl. No guarding or rebound. No palpable masses. No hepatosplenomegaly. EXTREMITIES: Normal range of motion, no edema. No clubbing or cyanosis. No cords, erythema, or tenderness. PSYCH: Normal mood, normal affect. SKIN: Warm, Dry, normal turgor, no rashes or lesions noted. NEURO: Mental status: The patient is alert and oriented x3. Cranial nerves: Cranial nerves II through XII are intact Motor: The upper extremities are 5 over 5 in all muscle groups. The lower extremities are 5 over 5 in all muscle groups. No pronator drift. Sensation: Sensation is intact to light touch throughout. Cerebellar: Cpsbww-[id number] is normal in both upper extremities. Heel-knee- camacho is normal in both lower extremities. Reflexes: 2+ and symmetric in the upper and lower extremities. Gait: Normal. Heel and toe walking are normal. Tandem gait is normal. <Courtney Modi - Last Filed: 11/30/16 02:02> Heart Score/ECG Review #1 ECG reviewed & interpreted by me at: 00:30 General ECG Interpretation: Sinus Rhythm, Normal Rate (68), Normal Intervals ( qtc 455), No acute ischemic changes <Harley Bazan - Last Filed: 11/30/16 02:22> ED Treatment Course - LABORATORY CBC & Chemistry Diagram: 11/30/16 00:24 11/30/16 00:53 - RADIOLOGY Radiograph Interpretation: 11/30/16 01:46 EXAM: CT head without contrast IMAGES: 383 EXAM DATE AND TIME: 2016-11-30 01:01:06 REASON FOR EXAM: 86 year-old female altered mental status evaluate for cerebrovascular accident or transient ischemic attack. COMPARISON: None. FINDINGS: No acute intracranial hemorrhage mass effect or midline shift. The ventricles sulci and basilar cisterns have a normal size and contour. Mild nonspecific periventricular predominant low density throughout the deep white matter is most likely due to mild small vessel ischemic white matter disease. No evidence of a large territory of subacute stroke. Calcified arteriosclerosis of the cavernous carotids noted. The sinuses and mastoid air cells are clear within the [id number]. The calvarium is intact. IMPRESSION: No acute intracranial hemorrhage mass effect or midline shift. Mild nonspecific periventricular predominant low density throughout the deep white matter is most likely due to mild small vessel ischemic white matter disease. No evidence of a large territory of subacute stroke. If there is a clinical concern for a small acute stroke then followup evaluation with an MRI of the brain may be needed. Calcified arteriosclerosis of the cavernous carotids noted. A verbal report of the abnormal findings were discussed with Dr. Bazan by Dr. Quintanilla at 1:31 AM eastern standard time November 30, 2016. THIS DOCUMENT HAS BEEN ELECTRONICALLY SIGNED Nadeem Quintanilla MD 11/30/2016 01:35 OBINNA Tolentino Please call Imaging Sedimentationist [phone] ([phone]) with questions. 11/30/16 01:47 <Courtney Modi - Last Filed: 11/30/16 02:02> - LABORATORY CBC & Chemistry Diagram: 11/30/16 00:24 11/30/16 00:53 <Harley Bazan - Last Filed: 11/30/16 02:22> Medical Decision Making - Medical Decision Making 11/30/16 01:14 A portion of this note was documented by scribe services under my direction. I have reviewed the details of the note, within reason, and agree with the documentation with the following case summary and management plan written by me. 86-year-old female with multiple medical problems including hypertension/COPD status post CABG, history of fracture/repair, history of bladder CA with recurrent UTI brought in by daughter after activating EMS for altered mental status/decreased responsiveness. Patient has been doing very well lately, at 8: 30 fell asleep on the couch and daughter had difficulty arousing her over the course of over an hour so she called 911. Patient does not recall the ambulance in her home, but is currently oriented and without complaints. Denies any headache/chest pain/cough/difficulty breathing/abdominal pain/urinary complaints. Daughter confirms that she has had similar reactions in the past in the setting of UTI, has not noted any foul odor or urgency. Afebrile. Vital signs normal. Generally well-appearing, no complaints Thin elderly female, ambulates with assistance as is her baseline Systolic ejection murmur, lungs clear, abdomen benign with questionable suprapubic discomfort Nonfocal neurologically 86-year-old female with transient episode of decreased responsiveness/altered mental status, now resolved. Question infectious versus metabolic, seems less likely focal neurologic. Seems to be back at baseline now with normal vital signs. Stroke and sepsis protocol was initiated CT head, check urinalysis We'll reassess, treat accordingly 11/30/16 01:51 WBC 7.4 with normal diff. BUN 42 with normal Cr. Trop negative. First lactate error, will resend. UA pending. CT head without acute pathology but notes chronic microvascular changes. CXR without acute pathology on my preliminary read. Given cardiac history, risks of infection/sepsis and the duration of the altered mental status, will monitor on tele observation for mental status and heart monitoring. PMD Rosa, will admit to [facility] overnight. 11/30/16 02:12 UA negative, lactate pending. ? arrhythmia v. TIA. 11/30/16 02:[address] Bunch, admitting for Dr. Mendoza. Accepted for obs tele. <Harley Bazan - Last Filed: 11/30/16 02:22> *DC/Admit/Observation/Transfer - Attestations Scribe Attestion: 11/30/16 01:06 Documentation prepared by MOIRA Fernandez, acting as medical research scientist for Harley Bazan MD. <Courtney Modi - Last Filed: 11/30/16 02:02> - Discharge Dispostion Admit: Yes <Harley Bazan - Last Filed: 11/30/16 02:22> Diagnosis at time of Disposition: Dehydration Altered mental status Qualifiers: Altered mental status type: transient alteration of awareness Qualified Code(s) : R40.4 - Transient alteration of awareness - Discharge Dispostion Condition at time of disposition: Fair - Referrals Referrals: Jaswant Armendariz MD [Primary Care Provider] -
[2016-11-30] MEDS ORDERED: SODIUM CHLORIDE 500 ML IV ONE (00:23)
[2016-11-30] MEDS ORDERED: SODIUM CHLORIDE 0.9% 1000 ML INFUS.BAG IV PRN (00:23)
[2016-11-30 01:05] LABS: BASOPHIL 0.8 % (0-2.0); EOSINOPHIL 4.6 % (0-4.5); MCH 29.4 pg (25.7-33.7); MCHC 33.3 g/dl (32.0-36.0); MEAN CELL VOLUME 88.2 fl (80-96); MEAN PLT VOLUME 10.2 fl (7.5-11.1); NEUTROPHILS 60.2 % (42.8-82.8); PLATELET COUNT 175 K/MM3 (134-434); RDW 14.8 % (11.6-15.6); WHITE BLOOD COUNT 7.4 K/mm3 (4.0-10.0)
[2016-11-30 01:08] VITALS: BMI 25.7
[2016-11-30 01:17] LABS: INR 0.92 (0.82-1.09); PROTHROMBIN TIME (PATIENT) 10.1 SEC (9.98-11.88)
[2016-11-30 01:19] LABS: ACTIVATED PTT 31.1 SECONDS (26.9-34.4)
[2016-11-30 01:33] LABS: ALBUMIN 3.2 g/dl (3.4-5.0); ANION GAP 12 (8-16); BILIRUBIN,TOTAL 0.2 mg/dL (0.2-1.0); CALCIUM 8.4 mg/dL (8.5-10.1); CO2 22 mmol/L (21-32); CREATININE 0.9 mg/dL (0.55-1.02); GLUCOSE,RANDOM 126 mg/dL (74-106); SGOT/AST 13 U/L (15-37); SGPT/ALT 16 U/L (12-78); TOT PROT 5.8 g/dl (6.4-8.2)
[2016-11-30 01:35] LABS: ALK PHOS 93 U/L (45-117); CPK 46 IU/L (26-192); TROPONIN I < 0.02 ng/ml (0.00-0.05)
[2016-11-30 01:55] LABS: URINE APPEARANCE CLEAR; URINE BILIRUBIN NEGATIVE (NEGATIVE); URINE BLOOD NEGATIVE (NEGATIVE); URINE COLOR STRAW; URINE GLUCOSE (UA) NEGATIVE (NEGATIVE); URINE KETONE NEGATIVE (NEGATIVE); URINE LEUK ESTERASE NEGATIVE (NEGATIVE); URINE NITRITE NEGATIVE (NEGATIVE); URINE PROTEIN NEGATIVE (NEGATIVE); URINE UROBILINOGEN NEGATIVE mg/dL (0.2-1.0)
[2016-11-30 02:09] LABS: VENOUS BLOOD GAS HCO3 22.8 meq/L (19-25); VENOUS PH 7.42 (7.32-7.42)
[2016-11-30] MEDS ORDERED: SODIUM CHLORIDE 1,000 ML IV SCH (02:45)
--- NOTE | 2016-11-30 03:52 | HP ---
CHIEF COMPLAINT: AMS PCP: Kala HISTORY OF PRESENT ILLNESS: This is an 86 year old female with a past medical hisotry of CAD, HTN, DM, mult UTIs who presented to the ED with altered mental status. The daughter explains that they were watching a movie together at 8:00pm and noticed that the patient fell asleep right away. When the movie was over around 10:40pm, the daughter attempted to wake up the patient to get ready for bed and she could not get her to wake up. She was less responsive and out of it. The daughter decided to give her some time and went to clean up the kitchen. She returned 10 minutes later and the patient was still difficult to arouse. She states that she would not open her eyes but started counting in [place]ian which was very unusual. The daughter even attempted to push a dolly under the patient on the couch and she was not bothered by the movement at all. She then called the ambulance. The daughter notes that the patient has been incredibly lucid over the past 2 weeks , so this episode is very unusual. Daughter reports similar episode 2 months ago ; workup did not reveal any obvious cause other than possible UTI. Upon exam, daughter reports that her mother is "pretty much" back to baseline. Pt reports no complaints on exam. ER course was notable for: (1) BUN 42, Cr 0.9 (2) Head CT without significant acute findings (3) U/A not consistent with UTI Recent Travel: daughter denies PAST MEDICAL HISTORY: CAD HTN DM mild dementia R hip fracture Bladder CA PAST SURGICAL HISTORY: Bladder resection 03/2016 appendectomy 4v CABG 1995 L saphenous vein removal 1968 due to "phlebitis" L foot/ankle ORIF 1982 Right hip ORIF Social History: Smoking: denies Alcohol: denies Drugs: denies Family History: brother due to heart disease mother possible due to heart disease in her 60s, father 10 days later Allergies No Known Allergies Allergy (Verified 10/09/16 21:55) HOME MEDICATIONS: 3 Medication Instructions Recorded Aspirin [ASA -] 81 mg PO DAILY 02/04/16 Isosorbide Mononitrate [Imdur -] 60 mg PO DAILY 02/04/16 Metformin HCl [Metformin HCl ER] 500 mg PO BID 02/04/16 Metoprolol Succinate [Toprol Xl] 50 mg PO HS 02/04/16 Lisinopril [Prinivil] 20 mg PO DAILY tablet 02/07/16 Folic Acid 1 mg PO DAILY 10/08/16 Walker [Ultra-Light Rollator] 1 each DAILY #1 each 10/09/16 Walker [Ultra-Light Rollator] 1 each DAILY #1 unit 10/09/16 REVIEW OF SYSTEMS CONSTITUTIONAL: Absent: fever, chills, diaphoresis, generalized weakness, malaise, loss of appetite, weight change HEENT: Absent: rhinorrhea, nasal congestion, throat pain, throat swelling, difficulty swallowing, mouth swelling, ear pain, eye pain, visual changes CARDIOVASCULAR: Absent: chest pain, syncope, palpitations, irregular heart rate, lightheadedness , peripheral edema RESPIRATORY: Absent: cough, shortness of breath, dyspnea with exertion, orthopnea, wheezing, stridor, hemoptysis GASTROINTESTINAL: Absent: abdominal pain, abdominal distension, nausea, vomiting, diarrhea, constipation, melena, hematochezia GENITOURINARY: Absent: dysuria, frequency, urgency, hesitancy, hematuria, flank pain, genital pain MUSCULOSKELETAL: Absent: myalgia, arthralgia, joint swelling, back pain, neck pain SKIN: Absent: rash, itching, pallor HEMATOLOGIC/IMMUNOLOGIC: Absent: easy bleeding, easy bruising, lymphadenopathy, frequent infections ENDOCRINE: Absent: unexplained weight gain, unexplained weight loss, heat intolerance, cold intolerance NEUROLOGIC: Present: mental status changes Absent: headache, focal weakness or paresthesias, dizziness, unsteady gait, seizure, bladder or bowel incontinence PSYCHIATRIC: Absent: anxiety, depression, suicidal or homicidal ideation, hallucinations. PHYSICAL EXAMINATION Vital Signs - 24 hr 3 11/30/16 11/30/16 01:07 02:17 Temperature 98.2 F Pulse Rate 66 Pulse Rate [ 94 H Apical] Respiratory 17 20 Rate Blood Pressure 113/55 Blood Pressure 106/81 [Left Arm] O2 Sat by Pulse 96 96 Oximetry (%) GENERAL: Awake, alert, and fully oriented, in no acute distress. HEAD: Normal with no signs of trauma. EYES: Pupils equal, round and reactive to light, extraocular movements intact, sclera anicteric, conjunctiva clear. No lid lag. EARS, NOSE, THROAT: Ears normal, nares patent, oropharynx clear without exudates. Moist mucous membranes. NECK: Normal range of motion, supple without lymphadenopathy, JVD, or masses. LUNGS: Breath sounds equal, clear to auscultation bilaterally. No wheezes, and no crackles. No accessory muscle use. HEART: Regular rate and rhythm, normal S1 and S2 without rub or gallop. 3/6 blowing systolic ejection murmur ABDOMEN: Soft, nontender, not distended, normoactive bowel sounds, no guarding, no rebound, no masses. No hepatomegaly or splenomegaly. MUSCULOSKELETAL: Normal range of motion at all joints. No bony deformities or tenderness. No CVA tenderness. UPPER EXTREMITIES: 2+ pulses, warm, well-perfused. No cyanosis. No clubbing. No peripheral edema. LOWER EXTREMITIES: 2+ pulses, warm, well-perfused. No calf tenderness. No peripheral edema. NEUROLOGICAL: Cranial nerves II-XII intact. Normal speech. Normal gait. PSYCHIATRIC: Cooperative. Good eye contact. Appropriate mood and affect. SKIN: Warm, dry, normal turgor, no rashes or lesions noted, normal capillary refill. Laboratory Results - last 24 hr 3 11/30/16 11/30/16 11/30/16 11/30/16 11/30/16 00:24 00:53 00:53 01:54 02:00 WBC 7.4 RBC 3.40 L Hgb 10.0 L D Hct 30.0 L MCV 88.2 MCH 29.4 MCHC 33.3 RDW 14.8 Plt Count 175 MPV 10.2 Neutrophils % 60.2 Lymphocytes % 24.0 Monocytes % 10.4 H Eosinophils % 4.6 H Basophils % 0.8 PT with INR 10.10 INR 0.92 PTT (Actin FS) 31.1 VBG pH 7.42 POC VBG pCO2 35.6 L POC VBG pO2 83.8 H Mixed VBG HCO3 22.8 Sodium 137 Potassium 4.4 Chloride 103 Carbon Dioxide 22 D Anion Gap 12 BUN 42 H D Creatinine 0.9 D Creat Clearance w eGFR 59.09 Random Glucose 126 H Lactic Acid 1.0 Calcium 8.4 L Total Bilirubin 0.2 D AST 13 L D ALT 16 Alkaline Phosphatase 93 Creatine Kinase 46 Troponin I < 0.02 Total Protein 5.8 L Albumin 3.2 L Urine Color Urine Appearance Urine pH Urine Protein Urine Glucose (UA) Urine Ketones Urine Blood Urine Nitrite Urine Bilirubin Urine Urobilinogen Blood Type B POSITIVE Antibody Screen Negative Radiology Reports CT head: Preliminary report from imaging automobile club information clerk Impression: No acute intracranial hemorrhage mass effect or midline shift. Mild nonspecific periventricular predominant low density throughout the deep white matter is most likely due to mild small vessel ischemic white matter disease. No evidence of a large territory of subacute stroke. If there is a clinical concern for a small acute stroke then followup evaluation with an MRI of the brain may be needed. Calcified arteriosclerosis of the cavernous carotids noted. Chest: No obvious infiltrates or effusions noted by me, final read pending ECG NSR, vent rate 68 QTC 455 septal infact, age undetermined No acute ST/T wave changes ASSESSMENT/PLAN: 86yF with PMH HTN, CAD s/p CABG, DM, UTIs, dementia presented to the ED with acute onset altered mental status. Altered mental status - no clear etiology - will monitor on tele - trend troponins to r/o cardiac event - CT head no acute changes Elevated BUN - gentle IV hydration NS @75cc/hr CAD - cont home ASA, Imdur, Toprol DM - cont home metformin - BGM AC/HS with novolog sliding scale DVT PPX - deferred as expected LOS <48h FEN - NS @ 75cc/hr - BMP in am - low sodium/diabetic diet as tolerated. Dispo: Pt currently requires inpatient observation for management of her emergent condition but expected LOS is less than 2 Midnights. Visit type - Emergency Visit Emergency Visit: Yes ED Registration Date: 11/29/16 Care time: The patient presented to the Emergency Department on the above date and was hospitalized for further evaluation of their emergent condition. - New Patient This patient is new to me today: Yes Date on this admission: 11/30/16 - Critical Care Critical Care patient: No
[2016-11-30 06:03] LABS: MCH 29.5 pg (25.7-33.7); MCHC 33.4 g/dl (32.0-36.0); MEAN CELL VOLUME 88.4 fl (80-96); MEAN PLT VOLUME 10.1 fl (7.5-11.1); PLATELET COUNT 182 K/MM3 (134-434); RDW 14.7 % (11.6-15.6); WHITE BLOOD COUNT 6.7 K/mm3 (4.0-10.0)
[2016-11-30 06:35] LABS: ANION GAP 4 (8-16); CALCIUM 8.4 mg/dL (8.5-10.1); CO2 29 mmol/L (21-32); CREATININE 0.8 mg/dL (0.55-1.02); GLUCOSE,RANDOM 100 mg/dL (74-106); MAGNESIUM 2.1 mg/dL (1.8-2.4); PHOSPHOROUS 3.9 mg/dL (2.5-4.9)
[2016-11-30 06:38] LABS: CPK 54 IU/L (26-192); TROPONIN I < 0.02 ng/ml (0.00-0.05)
[2016-11-30 06:52] VITALS: TEMP 98.5
[2016-11-30] MEDS: INSULIN SLIDING SCALE (NOVOLOG) 1 VIAL SQ SCH ×2 (07:53→11:42)
[2016-11-30] MEDS ORDERED: metFORMIN HCL 500 MG TABLET (FP) ONE (08:17)
[2016-11-30] MEDS ORDERED: ASPIRIN 81 MG CHEWABLE TABLETS ONE (09:35)
[2016-11-30] MEDS ORDERED: LISINOPRIL 20 MG TABLET (FP) ONE (09:35)
[2016-11-30] MEDS ORDERED: ISOSORBIDE MONONITRATE 60 MG TAB.SR.24H (FP) PO ONE (09:36)
[2016-11-30] MEDS ORDERED: FOLIC ACID 1 MG TABLET (FP) ONE (09:36)
--- NOTE | 2016-11-30 09:38 | EKG ---
Test Reason : Blood Pressure : / mmHG Vent. Rate : 068 BPM Atrial Rate : 068 BPM P-R Int : 128 ms QRS Dur : 098 ms QT Int : 428 ms P-R-T Axes : 021 009 057 degrees QTc Int : 455 ms NORMAL SINUS RHYTHM SEPTAL INFARCT (CITED ON OR BEFORE 04-FEB-2016) ABNORMAL ECG WHEN COMPARED WITH ECG OF 08-OCT-2016 01:08, NO SIGNIFICANT CHANGE WAS FOUND Confirmed by MARIALUISA RAMIREZ MD ([id number]) on 11/30/2016 9:38:26 AM Referred By: Confirmed By:MARIALUISA RAMIREZ MD
[2016-11-30 10:00] VITALS: BP 139/61; PULSE 69
[2016-11-30] MEDS ORDERED: FOLIC ACID 1 MG TABLET (FP) PO SCH (10:00)
[2016-11-30] MEDS ORDERED: ISOSORBIDE MONONITRATE 60 MG TAB.SR.24H (FP) PO SCH (10:00)
[2016-11-30] MEDS ORDERED: LISINOPRIL 20 MG TABLET (FP) PO SCH (10:00)
[2016-11-30] MEDS ORDERED: ASPIRIN 81 MG CHEWABLE TABLETS PO SCH (10:00)
--- NOTE | 2016-11-30 14:09 | DS ---
Physical Exam: SUBJECTIVE: Patient seen and examined in ED. She has no complaints. Daughter at bedside said she has returned to above her baseline. She tolerated lunch. OBJECTIVE: Vital Signs Period Temp Pulse Resp BP Sys/Lemus Pulse Ox Last 24 Hr 98.5 F 65-94 16-20 106-139/54-81 96-98 PE Neuro: alert, awake, cn 2-12intact Pulm: CTAB CV: s1 s2 rrr + 3/6 systolic murmur Abd: s nt nd + bs Ext: warm, no le edema Laboratory Results - last 24 hr 11/30/16 11/30/16 11/30/16 05:55 05:55 07:50 WBC 6.7 RBC 3.57 L Hgb 10.5 L Hct 31.6 L MCV 88.4 MCH 29.5 MCHC 33.4 RDW 14.7 Plt Count 182 MPV 10.1 Sodium 140 Potassium 4.7 Chloride 107 Carbon Dioxide 29 D Anion Gap 4 L BUN 37 H Creatinine 0.8 POC Glucometer [id number] Random Glucose 100 D Calcium 8.4 L Phosphorus 3.9 Magnesium 2.1 Creatine Kinase 54 Troponin I < 0.02 HOSPITAL COURSE: Date of Admission:11/30/16 Date of Discharge: 11/30/16 Minutes to complete discharge: 38 Discharge Summary Reason For Visit: ALTERED MENTAL STATUS Current Active Problems Altered mental status (Acute) Dehydration (Acute) UTI (urinary tract infection) (Acute) Bladder cancer (Chronic) Dementia (Chronic) Hospital Course: Initial Hospital Course: Briefly, this 86 year old female with pmhx of CAD, HTN, DM, mult UTIs admitted ED with altered mental status. Per daughter, the two were watching TV together at 8pm and pt fell asleep immediately. When movie was over around 10:40 she attempted to wake up the patient to get ready for bed she was difficult to arouse. Daughter states she would not open her eyes but started counting in [place] which was very unusual and called EMS. Similar episode 2 months ago with no obvious cause. In the last 2 weeks pt has been more lucid. Subsequent Hospital Course/DC Summary: Labs notable for BUN 42, Cr 0.9, Head CT without significant acute findings, U/ A not consistent with UTI, sugars stable Pt mental status returned to above baseline Per daughter recent GI work up reveled normal B12 and folate levels Discussed with Neurology Dr. Wilde who saw her last week and was not going to start her on any dementia meds at that time Due to pt return to baseline and no overt infectious cause, will discharge home with neuro follow up as outpt Encourage pt to drink plenty of fluids, as possible AMS from dehydration Daughter aware and agrees to above plan Condition: Stable - Instructions Diet, Activity, Other Instructions: Please return to the ED for any new, persistent, or worsening symptoms. Follow up with PCP in 1 week Drink plenty of fluids Resume home meds as directed Follow up with Dr. Wilde in 2 weeks Referrals: Jaswant Armendariz MD [Primary Care Provider] - Quincy Wilde DO [Staff Physician] - Disposition: HOME - Home Medications Comprehensive Discharge Medication List: Ambulatory Orders Aspirin [ASA -] 81 mg PO DAILY 02/04/16 Isosorbide Mononitrate [Imdur -] 60 mg PO DAILY 02/04/16 Metformin HCl [Metformin HCl ER] 500 mg PO BID 02/04/16 Metoprolol Succinate [Toprol Xl] 50 mg PO HS 02/04/16 Lisinopril [Prinivil] 20 mg PO DAILY tablet 02/07/16 Folic Acid 1 mg PO DAILY 10/08/16 Walker [Ultra-Light Rollator] 1 each MC DAILY #1 each 10/09/16 Walker [Ultra-Light Rollator] 1 each MC DAILY #1 unit 10/09/16 This patient is new to me today: Yes Date on this admission: 11/30/16 Emergency Visit: Yes ED Registration Date: 11/30/16 Care time: The patient presented to the Emergency Department on the above date and was hospitalized for further evaluation of their emergent condition. Critical Care patient: No - Discharge Referral Referred to [facility] No
[2016-11-30 14:52] LABS: CPK 51 IU/L (26-192); TROPONIN I < 0.02 ng/ml (0.00-0.05)
[2016-11-30] MEDS ORDERED: METOPROLOL SUCCINATE 50 MG TAB.SR.24H (FP) PO SCH (22:00)
== END 2016-11-30 16:00 | disposition home or self-care (01) ==
LOC: JER 23:59 → JERBED 11-30 02:13
PROVIDERS: ADMIT Internal Medicine; ATTEND Nurse Practitioner Acute Care
DX: R41.82 Altered mental status, unspecified (principal); F03.90 Unspecified dementia, unspecified severity, without behavioral disturbance, psychotic disturbance, mood disturbance, and anxiety; R40.4 Transient alteration of awareness; E86.0 Dehydration; I25.10 Atherosclerotic heart disease of native coronary artery without angina pectoris; I10 Essential (primary) hypertension; Z95.1 Presence of aortocoronary bypass graft; E11.9 Type 2 diabetes mellitus without complications; Z79.84 Long term (current) use of oral hypoglycemic drugs; Z86.718 Personal history of other venous thrombosis and embolism; Z87.440 Personal history of urinary (tract) infections; Z85.51 Personal history of malignant neoplasm of bladder; Z87.81 Personal history of (healed) traumatic fracture; R26.89 Other abnormalities of gait and mobility; Z99.89 Dependence on other enabling machines and devices
CPT/HCPCS: 36415; 70450-TC; 71010-TC; 80048; 80053; 81003; 82803; 83605; 83735; 84100; 84484; 85025; 85027; 85610; 85730; 86850; 86900; 86901; 87040; 93005; 93010; 99282-25; G0378

== ENCOUNTER 2017-08-22 16:01 | Inpatient (IN) | payer BC, OTHER ==
--- NOTE | 2017-08-22 16:31 | PDOC ---
History of Present Illness - General History Source: Patient, Family Exam Limitations: No Limitations - History of Present Illness Initial Comments: 08/22/17 19:13 The patient is an 87 year old female accompanied with her daughter, with a significant past medical history of venous insufficiency, bladder cancer ( cancer removed), phlebitis, hypertension, diabetes, and mild dementia, who presents to the emergency department for evaluation of urinary and bowel incontinence. The patient is a poor historian secondary to increasing confusion. As per the patients daughter, the patient has been having urinary and bowel incontinence since 07/11. As per the daughter, she noted the patient has been having the urge to urinate and the urge to produce bowel with little to no production. As per daughter, the patient is at the point the patient returns to the bathroom as soon as she leaves. The patients daughter also reports decreased appetite along with increasing confusion. As per the daughter , the patient produced a small amount of urine at 3pm today. The patients daughter reports the patient had a T Max of 102 yesterday and received the care of [facility] who recommended 500mg of Tylenol which brought the temperature down to 100.4. The patients daughter states she not satisfied with medical service prompting her to visit the ED for further evaluation. The patient denies nausea, vomiting, chills, chest pain, shortness of breath, headache, diarrhea, and dizziness. Allergies: NKA Past surgical history: Appendectomy, Quad Bypass (1995), Right hip fracture Social history: No reported cigarette, alcohol, or drug use. PCP: Dr. Armendariz <Damari Purcell - Last Filed: 08/22/17 19:13> <Corinna Massey - Last Filed: 08/23/17 21:05> - General Chief Complaint: Urinary Problem Stated Complaint: ALTERED MENTAL STATE Time Seen by Provider: 08/22/17 16:31 Past History <Damari Purcell - Last Filed: 08/22/17 19:13> - Past Medical History Cancer: Yes (bladder) Cardiac Disorders: Yes COPD: No DVT: Yes (1970S/PHLEBITIS) Dementia: Yes (MILD?) Diabetes: Yes HTN: Yes - Surgical History Appendectomy: Yes Cardiac Surgery: Yes (QUAD BYPASS 1995) - Immunization History Immunization Up to Date: Yes (FLU ) - Suicide/Smoking/Psychosocial Hx Smoking History: Never smoked Have you smoked in the past 12 months: No Number of Cigarettes Smoked Daily: 0 Information on smoking cessation initiated: No Hx Alcohol Use: No Drug/Substance Use Hx: No Substance Use Type: None <Sae Masseyiam - Last Filed: 08/23/17 21:05> - Past Medical History Allergies/Adverse Reactions: Allergies Allergy/AdvReac Type Severity Reaction Status Date / Time No Known Allergies Allergy Verified 08/22/17 16:08 Home Medications: Ambulatory Orders Aspirin [ASA -] 81 mg PO DAILY 02/04/16 Isosorbide Mononitrate [Imdur -] 60 mg PO DAILY 02/04/16 Metformin HCl [Metformin HCl ER] 500 mg PO BID 02/04/16 Metoprolol Succinate [Toprol Xl] 50 mg PO HS 02/04/16 Lisinopril [Prinivil] 20 mg PO DAILY tablet 02/07/16 Folic Acid 1 mg PO DAILY 10/08/16 Walker [Ultra-Light Rollator] 1 each MC DAILY #1 each 10/09/16 Walker [Ultra-Light Rollator] 1 each MC DAILY #1 unit 10/09/16 Cefuroxime Axetil [Cefuroxime] 250 mg PO BID 08/23/17 Review of Systems - Review of Systems Able to Perform ROS?: Yes Comments:: GENERAL/CONSTITUTIONAL: (+)Fever. No chills. No weakness. HEAD, EYES, EARS, NOSE AND THROAT: No change in vision. No ear pain or discharge. No sore throat. CARDIOVASCULAR: No chest pain or shortness of breath. RESPIRATORY: No cough, wheezing, or hemoptysis. GASTROINTESTINAL: (+)Bowel incontinence. No nausea, vomiting, diarrhea or constipation. GENITOURINARY: (+)Urinary incontinence. No dysuria or frequency. MUSCULOSKELETAL: No joint or muscle swelling or pain. No neck or back pain. SKIN: No rash NEUROLOGIC: No headache, vertigo, loss of consciousness, or change in strength/ sensation. ENDOCRINE: No increased thirst. No abnormal weight change. HEMATOLOGIC/LYMPHATIC: No anemia, easy bleeding, or history of blood clots. ALLERGIC/IMMUNOLOGIC: No hives or skin allergy. <Damari Purcell - Last Filed: 08/22/17 19:13> *Physical Exam - Vital Signs Last Vital Signs Temp Pulse Resp BP Pulse Ox 98.6 F 79 18 103/43 100 08/22/17 16:09 08/22/17 16:09 08/22/17 16:09 08/22/17 16:09 08/22/17 16:09 - Physical Exam Comments: GENERAL: Awake, alert, and fully oriented, in no acute distress HEAD: No signs of trauma EYES: PERRLA, EOMI, sclera anicteric, conjunctiva clear ENT: Auricles normal inspection, hearing grossly normal, nares patent. NECK: Normal ROM, supple. LUNGS: Breath sounds equal, clear to auscultation bilaterally. No wheezes, and no crackles HEART: Regular rate and rhythm, normal S1 and S2, no murmurs, rubs or gallops ABDOMEN: Soft, nontender, normoactive bowel sounds. No guarding, no rebound. No masses. EXTREMITIES: Normal range of motion, no edema. No clubbing or cyanosis. No cords, erythema, or tenderness NEUROLOGICAL: Cranial nerves II through XII grossly intact. Normal speech. SKIN: Warm, Dry, normal turgor, no rashes or lesions noted. <Damari Purcell - Last Filed: 08/22/17 19:13> - Vital Signs Last Vital Signs Temp Pulse Resp BP Pulse Ox 98.6 F 79 18 103/43 100 08/22/17 16:09 08/22/17 16:09 08/22/17 16:09 08/22/17 16:09 08/22/17 16:09 <Corinna Massey - Last Filed: 08/23/17 21:05> ED Treatment Course - LABORATORY CBC & Chemistry Diagram: 08/22/17 16:49 08/22/17 16:52 - ADDITIONAL ORDERS Additional order review: Laboratory Results 08/22/17 17:48 Urine Color Yellow Urine Appearance Cloudy Urine pH 5.0 Ur Specific [place] 1.020 Urine Protein 1+ H Urine Glucose (UA) Negative Urine Ketones Negative Urine Blood Negative Urine Nitrite Negative Urine Bilirubin Negative Urine Urobilinogen Negative Ur Leukocyte Esterase Trace Urine WBC (Auto) 7 Urine RBC (Auto) 7 Ur Epithelial Cells Rare Hyaline Casts 5 Urine Mucus Rare <Damari Purcell - Last Filed: 08/22/17 19:13> - LABORATORY CBC & Chemistry Diagram: 08/23/17 07:45 08/23/17 07:45 <Corinna Massey - Last Filed: 08/23/17 21:05> Medical Decision Making - Medical Decision Making 08/23/17 21:03 Pt presents to the ED complaining of fever, altered mental status. Extensive past medical history as described above. Afebrile in the ED, and at her baseline mental status as per animal care specialist. Given her history and her elevated WBC count, will admit and start broad spectrum antibiotics. <Corinna Massey - Last Filed: 08/23/17 21:05> *DC/Admit/Observation/Transfer - Attestations Scribe Attestion: Documentation prepared by Damari Purcell, acting as biomedical engineering professor for Corinna Massey MD. <Damari Purcell - Last Filed: 08/22/17 19:13> - Discharge Dispostion Decision to Admit order: Yes <Corinna Massey - Last Filed: 08/23/17 21:05> Diagnosis at time of Disposition: Leukocytosis Qualifiers: Leukocytosis type: unspecified Qualified Code(s): D72.829 - Elevated white blood cell count, unspecified Altered mental status Qualifiers: Altered mental status type: unspecified Qualified Code(s): R41.82 - Altered mental status, unspecified - Discharge Dispostion Condition at time of disposition: Good
[2017-08-22 18:15] LABS: URINE APPEARANCE CLOUDY; URINE BILIRUBIN NEGATIVE (<2.0 mg/dL); URINE BLOOD NEGATIVE (NEGATIVE); URINE COLOR YELLOW; URINE GLUCOSE (UA) NEGATIVE (NEGATIVE); URINE KETONE NEGATIVE (NEGATIVE); URINE LEUK ESTERASE TRACE (NEGATIVE); URINE NITRITE NEGATIVE (NEGATIVE); URINE UROBILINOGEN NEGATIVE mg/dL (0.2-1.0)
[2017-08-22 18:25] LABS: URINE PROTEIN 1+ (NEGATIVE)
[2017-08-22 18:27] LABS: EPI CELLS RARE /HPF (FEW); URINE HYALINE CAST 5 /lpf; URINE MUCUS RARE
[2017-08-22 19:32] LABS: ALBUMIN 3.5 g/dl (3.4-5.0); ANION GAP 9 (8-16); BILIRUBIN,TOTAL 0.3 mg/dL (0.2-1.0); BLOOD UREA NITROGEN 39 mg/dL (7-18); CALCIUM 8.7 mg/dL (8.5-10.1); CHLORIDE 102 mmol/L (98-107); CO2 24 mmol/L (21-32); CREATININE 1.1 mg/dL (0.55-1.02); GLUCOSE,RANDOM 145 mg/dL (74-106); SGPT/ALT 17 U/L (12-78); SODIUM 135 mmol/L (136-145); TOT PROT 6.6 g/dl (6.4-8.2)
[2017-08-22 19:33] LABS: ALK PHOS 83 U/L (45-117)
[2017-08-22 19:35] LABS: POTASSIUM 4.9 mmol/L (3.5-5.1)
[2017-08-22 19:36] LABS: SGOT/AST 22 U/L (15-37)
[2017-08-22 19:41] LABS: BASO % 0.5 % (0-2.0); EOS % 0.5 % (0-4.5); HEMATOCRIT 33.5 % (32.4-45.2); HEMOGLOBIN 10.8 GM/dL (10.7-15.3); LYMPH % 6.9 % (8-40); MCH 29.6 pg (25.7-33.7); MCHC 32.3 g/dl (32.0-36.0); MEAN CELL VOLUME 91.5 fl (80-96); MEAN PLT VOLUME 10.1 fl (7.5-11.1); MONO % 5.1 % (3.8-10.2); PLATELET COUNT 232 K/MM3 (134-434); RBC 3.66 M/mm3 (3.60-5.2); RDW 12.6 % (11.6-15.6); WHITE BLOOD COUNT 21.7 K/mm3 (4.0-10.0)
[2017-08-22] MEDS ORDERED: PIPERACILLIN/TAZOB 3.375 GM 3.375 GM in DEXTROSE 5%-WATER - 50 ML IVPB ONE (20:11)
[2017-08-22] MEDS ORDERED: VANCOMYCIN 1,000 MG in DEXTROSE 5%-WATER - 250 ML IVPB ONE (20:18)
[2017-08-22] MEDS ORDERED: PIPERACILLIN/TAZOB 3.375 GM 3.375 GM/50 ML BAG IVPB ONE (20:20)
[2017-08-22 20:47] LABS: ANISOCYTOSIS 1+; MACROCYTOSIS 1+; PLATELET ESTIMATE ADEQUATE
[2017-08-22] MEDS ORDERED: VANCOMYCIN 1 GRAM (PRE-DOCKED) 1,000 MG/250 ML BAG IVPB ONE (20:55)
--- NOTE | 2017-08-22 21:16 | PDOC ---
*Physical Exam - Vital Signs Last Vital Signs Temp Pulse Resp BP Pulse Ox 98.6 F 79 18 103/43 100 08/22/17 16:09 08/22/17 16:09 08/22/17 16:09 08/22/17 16:09 08/22/17 16:09 ED Treatment Course - LABORATORY CBC & Chemistry Diagram: 08/22/17 16:49 08/22/17 16:52 - ADDITIONAL ORDERS Additional order review: Laboratory Results 08/22/17 08/22/17 08/22/17 17:52 17:48 16:52 Sodium 135 L Potassium 4.9 Chloride 102 Carbon Dioxide 24 Anion Gap 9 BUN 39 H Creatinine 1.1 H Creat Clearance w eGFR 46.77 Random Glucose 145 H Lactic Acid 1.9 Calcium 8.7 Total Bilirubin 0.3 D AST 22 ALT 17 Alkaline Phosphatase 83 Total Protein 6.6 Albumin 3.5 Urine Color Yellow Urine Appearance Cloudy Urine pH 5.0 Ur Specific [place] 1.020 Urine Protein 1+ H Urine Glucose (UA) Negative Urine Ketones Negative Urine Blood Negative Urine Nitrite Negative Urine Bilirubin Negative Urine Urobilinogen Negative Ur Leukocyte Esterase Trace Urine WBC (Auto) 7 Urine RBC (Auto) 7 Ur Epithelial Cells Rare Hyaline Casts 5 Urine Mucus Rare 08/22/17 16:49 RBC 3.66 MCV 91.5 MCHC 32.3 RDW 12.6 D MPV 10.1 Neutrophils % 87.0 H D Lymphocytes % 6.9 L D Monocytes % 5.1 Eosinophils % 0.5 D Basophils % 0.5 - Medications Given in the ED: ED Medications Discontinued Medications Generic Name Dose Route Start Last Admin Trade Name Freq PRN Reason Stop Dose Admin Piperacillin Sod/Tazobactam 50 mls @ 100 mls/hr 08/22/17 20:11 08/22/17 20:10 Sod 3.375 gm/ Dextrose IVPB 08/22/17 20:40 100 mls/hr ONCE ONE Administration Protocol Medical Decision Making - Medical Decision Making 08/22/17 21:13 Sign-out received from outgoing Emergency Physician Dr. Massey Pt interviewed and examined Ancillary studies reviewed Case discussed in detail with oncoming Emergency Physician including history, physical exam and ancillary studies. CBC, BMP 08/22/17 16:49 08/22/17 16:52 CMP Sodium 135 mmol/L (136-145) L 08/22/17 16:52 Potassium 4.9 mmol/L (3.5-5.1) 08/22/17 16:52 Chloride 102 mmol/L (98-107) 08/22/17 16:52 Carbon Dioxide 24 mmol/L (21-32) 08/22/17 16:52 Anion Gap 9 (8-16) 08/22/17 16:52 BUN 39 mg/dL (7-18) H 08/22/17 16:52 Creatinine 1.1 mg/dL (0.55-1.02) H 08/22/17 16:52 Creat Clearance w eGFR 46.77 (>60) 08/22/17 16:52 Random Glucose 145 mg/dL (74-106) H 08/22/17 16:52 Lactic Acid 1.9 mmol/L (0.0-2.0) 08/22/17 17:52 Calcium 8.7 mg/dL (8.5-10.1) 08/22/17 16:52 Total Bilirubin 0.3 mg/dL (0.2-1.0) D 08/22/17 16:52 AST 22 U/L (15-37) 08/22/17 16:52 ALT 17 U/L (12-78) 08/22/17 16:52 Alkaline Phosphatase 83 U/L (45-117) 08/22/17 16:52 Total Protein 6.6 g/dl (6.4-8.2) 08/22/17 16:52 Albumin 3.5 g/dl (3.4-5.0) 08/22/17 16:52 Urine Test Results Urine Color Yellow 08/22/17 17:48 Urine Appearance Cloudy 08/22/17 17:48 Urine pH 5.0 (5.0-8.0) 08/22/17 17:48 Ur Specific [place] 1.020 (1.001-1.035) 08/22/17 17:48 Urine Protein 1+ (NEGATIVE) H 08/22/17 17:48 Urine Glucose (UA) Negative (NEGATIVE) 08/22/17 17:48 Urine Ketones Negative (NEGATIVE) 08/22/17 17:48 Urine Blood Negative (NEGATIVE) 08/22/17 17:48 Urine Nitrite Negative (NEGATIVE) 08/22/17 17:48 Urine Bilirubin Negative (<2.0 mg/dL) 08/22/17 17:48 Ur Leukocyte Esterase Trace (NEGATIVE) 08/22/17 17:48 Ur Epithelial Cells Rare /HPF (FEW) 08/22/17 17:48 Urine Mucus Rare 08/22/17 17:48 Chest xray reviewed and Head CT reviewed. No acute findings. However, WBC elevated to ~21. Pt given vanc and zosyn for potential bacteremia. Case discussed with [facility] hospitalist. Case accepted to med/surg admission. Case discussed in detail with admitting physician including history, physical exam and ancillary studies. Admitting physician has assumed care for the patient, will follow all pending diagnostics and will complete the evaluation and treatment. *DC/Admit/Observation/Transfer Diagnosis at time of Disposition: Leukocytosis Qualifiers: Leukocytosis type: unspecified Qualified Code(s): D72.829 - Elevated white blood cell count, unspecified Altered mental status Qualifiers: Altered mental status type: unspecified Qualified Code(s): R41.82 - Altered mental status, unspecified - Discharge Dispostion Condition at time of disposition: Stable Decision to Admit order: Yes - Referrals Referrals: Jaswant Armendariz MD [Primary Care Provider] - - Patient Instructions - Post Discharge Activity
--- NOTE | 2017-08-22 21:55 | PN ---
Teaching Attending Note Name of Resident: Desmond Abraham ATTENDING PHYSICIAN STATEMENT I saw and evaluated the patient. I reviewed the resident's note and discussed the case with the resident. I agree with the resident's findings and plan as documented. SUBJECTIVE: Patient is an 87 year old woman brought by her daughter, with a significant past history of venous insufficiency, appendectomy, Quad Bypass (1995), Right hip fracture, bladder cancer (cancer removed), phlebitis, hypertension, diabetes , and mild dementia, with chief complaint of frequent urges to urinate or move her bowel for over 1 month. There is associated increasing confusion and poor appetite. As per the daughter, patient has been having the urge to urinate and the urge to move her bowel with minimal stool or urine each time. Often patient returns to the bathroom as soon as she leaves and also tries to change her diapers despite not being wet. Patient had a T Max of 102 yesterday and received the care of [facility] who recommended 500mg of Tylenol which brought the temperature down to 100.4. OBJECTIVE: Alert, but in no acute distress. Confused. Singing. Vital Signs Period Temp Pulse Resp BP Sys/Lemus Pulse Ox Last 24 Hr 98.6 F 79 18 103/43 100 HEENT: No Jaundice, eye redness or discharge, PERRLA, EOMI. Normocephalic, atraumatic. External ears are normal and hearing is grossly intact. No nasal discharge. Neck: Supple, nontender. No palpable adenopathy or thyromegaly. No JVD Chest: Good effort. Clear to auscultation and percussion. Heart: Regular. No S3, rub; 3/6 systolic murmur Abdomen: Not distended, soft, tender RUQ and no HSM. No rebound or guarding. Normoactive bowel sounds. Ext: Peripheral pulses intact. No leg edema. Skin: Warm and dry. No petechiae, rash or ecchymosis. Neuro: Alert. Oriented to person and place. Pleasantly confused. CN 2-12 grossly intact. Sensation grossly intact in all four extremities and DTR are symmetric. Home Medications Medication Instructions Recorded Aspirin [ASA -] 81 mg PO DAILY 02/04/16 Isosorbide Mononitrate [Imdur -] 60 mg PO DAILY 02/04/16 Metformin HCl [Metformin HCl ER] 500 mg PO BID 02/04/16 Metoprolol Succinate [Toprol Xl] 50 mg PO HS 02/04/16 Lisinopril [Prinivil] 20 mg PO DAILY tablet 02/07/16 Folic Acid 1 mg PO DAILY 10/08/16 Walker [Ultra-Light Rollator] 1 each MC DAILY #1 each 10/09/16 Walker [Ultra-Light Rollator] 1 each DAILY #1 unit 10/09/16 Abnormal Lab Results 08/22/17 08/22/17 08/22/17 16:49 16:52 17:48 WBC 21.7 H D Neutrophils % 87.0 H D Neutrophils % (Manual) 84.0 H Lymphocytes % 6.9 L D Monocytes % (Manual) 2 L Sodium 135 L BUN 39 H Creatinine 1.1 H Random Glucose 145 H Urine Protein 1+ H ASSESSMENT AND PLAN: 1. Altered mental status - Likely toxic metabolic encephalopathy superimposed on dementia, precipitated by infection. Source of infection is unclear. Will get sonogram of abdomen to evaluate RUQ tenderness and assess intensity of constipation; do blood cultures and continue IV Zosyn. Lactic acid is 1.9 - may be due to metformin - will repeat after fluids. Get ECHO to evaluate murmur and implement fall precautions. Will give enema if fecal impaction is confirmed. The frequent "urges" to defecate or urinate may be a manifestation of her confusion. 2. GALO - Likely primarily due to dehydration. Will give IV NS at 70 ml/hour and encourage liberal oral fluid intake. Avoid NSAIDS and aminoglycosides. Repeat BMP in am. 3. HTN and DM - Continue comprehensive care; hold antihypertensive drugs for now in view of low BP; hold metformin and do sliding scale insulin. 4. DVT prophylaxis - Heparin 5000u sq tid 5. Advance directives - Full code
[2017-08-22] MEDS ORDERED: SODIUM CHLORIDE 1,000 ML IV SCH (23:00)
--- NOTE | 2017-08-22 23:34 | HP ---
CHIEF COMPLAINT: AMS PCP: Dr. Lee HISTORY OF PRESENT ILLNESS: The patient is an 87 yo f w/ PMH Bladder Ca, HTN, DM, Dementia who was brought to the ED from home by her daughter for AMS. Patient is confused and the following history was obtained from the patient's daughter at bedside. The patient is demented at baseline with occasional episodes of confusion in the evenings, but the patient has become progressively more confused and disoriented over the past 1 week. In addition to this, the patient has had a decreased appetite and decreased PO intake. This afternoon, the patient's daughter measured a temperature of 102 degrees. She administered 500mg tylenol which controlled the fever at home. The patient and her daughter also endorse constipation for the past month. Patient denies chills, chest pain, SOB, abdominal pain, diarrhea or dysuria. ER course was notable for: (1) CT head negative for acute pathology (2) CXR WNL (3) WBC 21.7, Cr. 1.1, BUN 39 Recent Travel: none PAST MEDICAL HISTORY: DVT in the 1969' PAST SURGICAL HISTORY: Appendectomy CABG x4 in 1995 right hip fracture repair Bladder cancer removal Social History: Smoking: never smoker Alcohol: denies Drugs: denies Family History: Heart disease Allergies No Known Allergies Allergy (Verified 08/22/17 16:08) HOME MEDICATIONS: Home Medications Medication Instructions Recorded Aspirin [ASA -] 81 mg PO DAILY 02/04/16 Isosorbide Mononitrate [Imdur -] 60 mg PO DAILY 02/04/16 Metformin HCl [Metformin HCl ER] 500 mg PO BID 02/04/16 Metoprolol Succinate [Toprol Xl] 50 mg PO HS 02/04/16 Lisinopril [Prinivil] 20 mg PO DAILY tablet 02/07/16 Folic Acid 1 mg PO DAILY 10/08/16 Walker [Ultra-Light Rollator] 1 each MC DAILY #1 each 10/09/16 Walker [Ultra-Light Rollator] 1 each MC DAILY #1 unit 10/09/16 REVIEW OF SYSTEMS CONSTITUTIONAL: Absent: chills, diaphoresis, generalized weakness, malaise, loss of appetite, weight change HEENT: Absent: rhinorrhea, nasal congestion, throat pain, throat swelling, difficulty swallowing, mouth swelling, ear pain, eye pain, visual changes CARDIOVASCULAR: Absent: chest pain, syncope, palpitations, irregular heart rate, lightheadedness , peripheral edema RESPIRATORY: Absent: cough, shortness of breath, dyspnea with exertion, orthopnea, wheezing, stridor, hemoptysis GASTROINTESTINAL: Absent: abdominal pain, abdominal distension, nausea, vomiting, diarrhea, constipation, melena, hematochezia GENITOURINARY: Absent: dysuria, frequency, urgency, hesitancy, hematuria, flank pain, genital pain MUSCULOSKELETAL: Absent: myalgia, arthralgia, joint swelling, back pain, neck pain SKIN: Absent: rash, itching, pallor HEMATOLOGIC/IMMUNOLOGIC: Absent: easy bleeding, easy bruising, lymphadenopathy, frequent infections ENDOCRINE: Absent: unexplained weight gain, unexplained weight loss, heat intolerance, cold intolerance NEUROLOGIC: Absent: headache, focal weakness or paresthesias, dizziness, unsteady gait, seizure, mental status changes, bladder or bowel incontinence PSYCHIATRIC: Absent: anxiety, depression, suicidal or homicidal ideation, hallucinations. PHYSICAL EXAMINATION Vital Signs - 24 hr 08/22/17 08/22/17 16:09 22:51 Temperature 98.6 F 98.6 F Pulse Rate 79 Pulse Rate [ 77 Left] Respiratory 18 16 Rate Blood Pressure 103/43 Blood Pressure 122/55 [Left Arm] O2 Sat by Pulse 100 97 Oximetry (%) GENERAL: Awake, alert, and oriented to self only. Patient gets up and tries to leave at multiple points during the conversation. Able to follow commands. HEAD: Normal with no signs of trauma. EYES: Pupils equal, round and reactive to light, extraocular movements intact, sclera anicteric, conjunctiva clear. EARS, NOSE, THROAT: oropharynx clear without exudates. Moist mucous membranes. NECK: Normal range of motion, supple without lymphadenopathy, JVD, or masses. LUNGS: Breath sounds equal, clear to auscultation bilaterally. No wheezes, and no crackles. No accessory muscle use. HEART: Regular rate and rhythm, normal S1 and S2. There is a systolic ejection murmur heard across the whole precordium. ABDOMEN: Soft. There is tenderness to palpation in the RUQ. not distended, normoactive bowel sounds, no guarding, no rebound, no masses. No hepatomegaly or splenomegaly. LOWER EXTREMITIES: 2+ pulses, warm, well-perfused. No calf tenderness. No peripheral edema. NEUROLOGICAL: Cranial nerves II-X intact. Normal speech. STrength 5/5 in all 4 limbs. Sensation preserved. No facial droop. SKIN: Warm, dry, normal turgor, no rashes or lesions noted, normal capillary refill. Laboratory Results - last 24 hr 08/22/17 08/22/17 08/22/17 16:49 16:52 17:48 WBC 21.7 H D RBC 3.66 Hgb 10.8 Hct 33.5 MCV 91.5 MCH 29.6 MCHC 32.3 RDW 12.6 D Plt Count 232 D MPV 10.1 Absolute Neuts (auto) 18.9 Total Counted 100 Neutrophils % 87.0 H D Neutrophils % (Manual) 84.0 H Lymphocytes % 6.9 L D Lymphocytes % (Manual) 14.0 Monocytes % 5.1 Monocytes % (Manual) 2 L Eosinophils % 0.5 D Basophils % 0.5 Nucleated RBC % 0 Hypochromia 1+ Platelet Estimate Adequate Anisocytosis 1+ Macrocytosis 1+ Sodium 135 L Potassium 4.9 Chloride 102 Carbon Dioxide 24 Anion Gap 9 BUN 39 H Creatinine 1.1 H Creat Clearance w eGFR 46.77 POC Glucometer Random Glucose 145 H Lactic Acid Calcium 8.7 Total Bilirubin 0.3 D AST 22 ALT 17 Alkaline Phosphatase 83 Total Protein 6.6 Albumin 3.5 Urine Color Yellow Urine Appearance Cloudy Urine pH 5.0 Ur Specific [place] 1.020 Urine Protein 1+ H Urine Glucose (UA) Negative Urine Ketones Negative Urine Blood Negative Urine Nitrite Negative Urine Bilirubin Negative Urine Urobilinogen Negative Ur Leukocyte Esterase Trace Urine WBC (Auto) 7 Urine RBC (Auto) 7 Ur Epithelial Cells Rare Hyaline Casts 5 Urine Mucus Rare 08/22/17 08/22/17 17:52 21:03 WBC RBC Hgb Hct MCV MCH MCHC RDW Plt Count MPV Absolute Neuts (auto) Total Counted Neutrophils % Neutrophils % (Manual) Lymphocytes % Lymphocytes % (Manual) Monocytes % Monocytes % (Manual) Eosinophils % Basophils % Nucleated RBC % Hypochromia Platelet Estimate Anisocytosis Macrocytosis Sodium Potassium Chloride Carbon Dioxide Anion Gap BUN Creatinine Creat Clearance w eGFR POC Glucometer [phone] Random Glucose Lactic Acid 1.9 Calcium Total Bilirubin AST ALT Alkaline Phosphatase Total Protein Albumin Urine Color Urine Appearance Urine pH Ur Specific [place] Urine Protein Urine Glucose (UA) Urine Ketones Urine Blood Urine Nitrite Urine Bilirubin Urine Urobilinogen Ur Leukocyte Esterase Urine WBC (Auto) Urine RBC (Auto) Ur Epithelial Cells Hyaline Casts Urine Mucus ASSESSMENT/PLAN: The patient is an 87 yo f w/ PMH dementia, HTN, DM who presents tot he ED c/o fever and AMS. #AMS, fever and leukocytosis 2/2 infection; source unknown -UCX, BCX ordered -CXR clear -UA not indicative of infection -will order abdominal US to evaluate gallbladder and colon as possible sources. -LA 1.9; will repeat -s/p vanc and zosyn in ED -will hold off on further ABX until abd US #GALO -Cr 1.1, b/l .9 -will start gentle hydration NS@50 -trend creatinine #systolic ejection murmur -last echo over 1 year ago -echo in am -can consider cardio consult in AM #DM -BGM ACHS -ISS ACHS #FEN -NS@50 -lytes wnl, will replete PRN -diabetic diet #Prophy -Hep SQ 5ku TID #dispo -admit med surg PATIENT'S HOME MEDICATIONS HAVE NOT BEEN VERIFIED Visit type - Emergency Visit Emergency Visit: Yes ED Registration Date: 08/22/17 Care time: The patient presented to the Emergency Department on the above date and was hospitalized for further evaluation of their emergent condition. - New Patient This patient is new to me today: Yes Date on this admission: 08/23/17 - Critical Care Critical Care patient: No Hospitalist Screening - Colonoscopy Questionnaire Colonoscopy Questionnaire: Colonoscopy Questionnaire - Patient: 50 - 75 years old and never had a screening colonoscopy: Unknown History of colon or rectal polyps, or CA: Unknown History of IBD, Crohn's disease or UC: Unknown History of abdominal radiation therapy as a child: Unknown - Relative: 1 with colon or rectal CA, or polyps at age 60 or younger: Unknown Colon or rectal CA diagnosed at age 45 or younger: Unknown Multiple relatives with colon or rectal CA: Unknown - Outcome: Screening Result: Negative Screen
[2017-08-23 03:23] VITALS: BMI 24.8
[2017-08-23] MEDS: HEPARIN NA (PORCINE) 5,000 UNITS/ML 1ML VIAL SQ SCH ×3 (05:53→21:36)
[2017-08-23] MEDS: INSULIN SLIDING SCALE (NOVOLOG) 1 VIAL SQ SCH ×4 (06:12→21:36)
[2017-08-23] MEDS ORDERED: PIPERACILLIN/TAZOB 3.375 GM 3.375 GM in DEXTROSE 5%-WATER - 50 ML IVPB ONE (08:00)
[2017-08-23 08:49] LABS: ALBUMIN 2.9 g/dl (3.4-5.0); ALK PHOS 67 U/L (45-117); ANION GAP 6 (8-16); BILIRUBIN,TOTAL 0.4 mg/dL (0.2-1.0); BLOOD UREA NITROGEN 27 mg/dL (7-18); CALCIUM 8.2 mg/dL (8.5-10.1); CHLORIDE 107 mmol/L (98-107); CO2 26 mmol/L (21-32); CREATININE 0.8 mg/dL (0.55-1.02); MAGNESIUM 2.1 mg/dL (1.8-2.4); POTASSIUM 3.9 mmol/L (3.5-5.1); SGOT/AST 13 U/L (15-37); SGPT/ALT 16 U/L (12-78); SODIUM 139 mmol/L (136-145); TOT PROT 5.7 g/dl (6.4-8.2)
[2017-08-23 08:50] LABS: BASO % 0.5 % (0-2.0); EOS % 2.6 % (0-4.5); HEMATOCRIT 29.1 % (32.4-45.2); HEMOGLOBIN 9.6 GM/dL (10.7-15.3); LYMPH % 8.1 % (8-40); MCH 30.2 pg (25.7-33.7); MCHC 33.1 g/dl (32.0-36.0); MEAN CELL VOLUME 91.2 fl (80-96); MONO % 5.5 % (3.8-10.2); NEUT % 83.3 % (42.8-82.8); PLATELET COUNT 188 K/MM3 (134-434); RBC 3.19 M/mm3 (3.60-5.2); RDW 12.7 % (11.6-15.6); WHITE BLOOD COUNT 16.1 K/mm3 (4.0-10.0)
[2017-08-23 08:51] LABS: GLUCOSE,RANDOM 113 mg/dL (74-106)
[2017-08-23] MEDS ORDERED: PIPERACILLIN/TAZOBACTAM 3.375 GM VIAL IVPB ONE (09:39)
[2017-08-23] MEDS ORDERED: DEXTROSE 5%-WATER - 50 ML IVPB ONE (09:39)
[2017-08-23] MEDS: ISOSORBIDE MONONITRATE 60 MG TAB.SR.24H (FP) PO SCH (09:47)
[2017-08-23] MEDS: ASPIRIN 81 MG CHEWABLE TABLETS PO SCH (09:47)
[2017-08-23] MEDS: LISINOPRIL 20 MG TABLET (FP) PO SCH (09:47)
--- NOTE | 2017-08-23 10:23 | EKG ---
Test Reason : Blood Pressure : / mmHG Vent. Rate : 076 BPM Atrial Rate : 076 BPM P-R Int : 124 ms QRS Dur : 094 ms QT Int : 406 ms P-R-T Axes : 008 -19 053 degrees QTc Int : 456 ms NORMAL SINUS RHYTHM INCOMPLETE RIGHT BUNDLE BRANCH BLOCK SEPTAL INFARCT (CITED ON OR BEFORE 04-FEB-2016) ABNORMAL ECG WHEN COMPARED WITH ECG OF 30-NOV-2016 00:30, QUESTIONABLE CHANGE IN INITIAL FORCES OF SEPTAL LEADS Confirmed by MARIALUISA RAMIREZ MD ([id number]) on 08/23/2017 10:23:21 AM Referred By: Confirmed By:MARIALUISA RAMIREZ MD
--- NOTE | 2017-08-23 11:53 | CON.PULM ---
Consult Consult Specialty:: PULMONARY Referred by:: VAUGHN Reason for Consultation:: SOB/FEVER - History of Present Illness Chief Complaint: SOB/FEVER History of Present Illness: The patient is an 87 year old female well known by me for many years, with a significant past medical history of venous insufficiency, bladder cancer ( cancer removed), phlebitis, hypertension, diabetes, and mild dementia, who presents to the emergency department for evaluation of urinary and bowel incontinence. The patient is a poor historian secondary to increasing confusion. As per the patients daughter, the patient has been having urinary and bowel incontinence since 07/11. She noted the patient has been having the urge to urinate and the urge to produce bowel with little to no production. The patients daughter also reported decreased appetite along with increasing confusion. The patients daughter reported the patient had a T Max of 102 prior to admission and received the care of [facility] who recommended 500mg of Tylenol which brought the temperature down to 100.4. The patients daughter states she not satisfied with medical service prompting her to visit the ED for further evaluation. 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 No: CVA Cardio/Vascular: Yes: CAD, HTN. No: AFIB, Aneurysm Pulmonary: No: O2 Dependent, Pneumonia, Previously Intubated, Pulmonary Embolus Gastrointestinal: No: Cancer Hepatobiliary: No: Cirrhosis Renal/: No: Renal Failure Reproductive: Yes: Postmenopausal Heme/Onc: Yes: Anemia Psych: No: Addictions Musculoskeletal: Yes: Osteoarthritis Rheumatology: No: Sarcoidosis Endocrine: Yes: Diabetes Mellitus - Past Surgical History Past Surgical History: Yes: CABG - Alcohol/Substance Use Hx Alcohol Use: No - Smoking History Smoking history: Never smoked Have you smoked in the past 12 months: No Aproximately how many cigarettes per day: 0 - Social History Usual Living Arrangement: With Child Place of : Other History of Recent Travel: No Home Medications - Allergies Allergies/Adverse Reactions: Allergies Allergy/AdvReac Type Severity Reaction Status Date / Time No Known Allergies Allergy Verified 08/22/17 16:08 - Home Medications Home Medications: Ambulatory Orders Aspirin [ASA -] 81 mg PO DAILY 02/04/16 Isosorbide Mononitrate [Imdur -] 60 mg PO DAILY 02/04/16 Metformin HCl [Metformin HCl ER] 500 mg PO BID 02/04/16 Metoprolol Succinate [Toprol Xl] 50 mg PO HS 02/04/16 Lisinopril [Prinivil] 20 mg PO DAILY tablet 02/07/16 Folic Acid 1 mg PO DAILY 10/08/16 Walker [Ultra-Light Rollator] 1 each MC DAILY #1 each 10/09/16 Walker [Ultra-Light Rollator] 1 each MC DAILY #1 unit 10/09/16 Family Disease History - Family Disease History Family History: Unable to Obtain Review of Systems Unable to obtain ROS, reason: dementia Physical Exam Vital Sings: Vital Signs Temperature 98.2 F 08/23/17 06:00 Pulse Rate 76 08/23/17 06:00 Respiratory Rate 20 08/23/17 06:00 Blood Pressure 155/73 08/23/17 06:00 O2 Sat by Pulse Oximetry (%) 97 08/23/17 03:27 Constitutional: Yes: Calm Eyes: Yes: EOM Intact HENT: Yes: Normocephalic Neck: Yes: Trachea Midline Cardiovascular: Yes: Regular Rate and Rhythm, S1, S2 Respiratory: Yes: CTA Bilaterally Gastrointestinal: Yes: Normal Bowel Sounds, Soft. No: Tenderness, Tenderness, Rebound Renal/: No: CVA Tenderness - Left, CVA Tenderness - Right Breast(s): Yes: WNL Musculoskeletal: Yes: WNL Extremities: Yes: WNL Neurological: Yes: Pre-Existing Deficit Labs: CBC, BMP 08/23/17 07:45 08/23/17 07:45 Imaging - Results Chest X-ray: Report Reviewed, Image Reviewed Cat Scan: Pending EKG: Report Reviewed Problem List - Problems (1) UTI (urinary tract infection) Code(s): N39.0 - URINARY TRACT INFECTION, SITE NOT SPECIFIED Qualifiers: Urinary tract infection type: site unspecified Hematuria presence: without hematuria Qualified Code(s): N39.0 - Urinary tract infection, site not specified (2) Bladder cancer Code(s): C67.9 - MALIGNANT NEOPLASM OF BLADDER, UNSPECIFIED Qualifiers: Bladder location: unspecified site Qualified Code(s): C67.9 - Malignant neoplasm of bladder, unspecified (3) CAD (coronary artery disease) Code(s): I25.10 - ATHSCL HEART DISEASE OF [place] CORONARY ARTERY W/O ANG PCTRS (4) Dementia Code(s): F03.90 - UNSPECIFIED DEMENTIA WITHOUT BEHAVIORAL DISTURBANCE Assessment/Plan LIKELY UROSEPSIS CAUSING FEVER AND INCONTINENCE DEMENTIA ASHD CABG FAILURE TO THRIVE AGREE WITH BROAD SPECTRUM ABS CHECK CULTURES/CT'S PENDING O2 PRN CONTINUE HOME MEDS CONSIDER UROLOGY/ID MANISHA LIU MD
--- NOTE | 2017-08-23 13:03 | CONSULT ---
Consult Consult Specialty:: General Surgery Reason for Consultation:: Abdominal pain, fever, leukocytosis - History of Present Illness Chief Complaint: As per daughter progressive confusion with fever and loss of appetitie. 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 No: CVA Cardio/Vascular: Yes: CAD, HTN. No: AFIB, Aneurysm Pulmonary: No: O2 Dependent, Pneumonia, Previously Intubated, Pulmonary Embolus Gastrointestinal: No: Cancer Hepatobiliary: No: Cirrhosis Renal/: No: Renal Failure Psych: No: Addictions Musculoskeletal: Yes: Osteoarthritis Rheumatology: No: Sarcoidosis Endocrine: Yes: Diabetes Mellitus - Past Surgical History Past Surgical History: Yes: CABG - Alcohol/Substance Use Hx Alcohol Use: No - Smoking History Smoking history: Never smoked Have you smoked in the past 12 months: No Aproximately how many cigarettes per day: 0 - Social History Usual Living Arrangement: With Child History of Recent Travel: No Home Medications - Allergies Allergies/Adverse Reactions: Allergies Allergy/AdvReac Type Severity Reaction Status Date / Time No Known Allergies Allergy Verified 08/22/17 16:08 - Home Medications Home Medications: Ambulatory Orders Aspirin [ASA -] 81 mg PO DAILY 02/04/16 Isosorbide Mononitrate [Imdur -] 60 mg PO DAILY 02/04/16 Metformin HCl [Metformin HCl ER] 500 mg PO BID 02/04/16 Metoprolol Succinate [Toprol Xl] 50 mg PO HS 02/04/16 Lisinopril [Prinivil] 20 mg PO DAILY tablet 02/07/16 Folic Acid 1 mg PO DAILY 10/08/16 Walker [Ultra-Light Rollator] 1 each MC DAILY #1 each 10/09/16 Walker [Ultra-Light Rollator] 1 each MC DAILY #1 unit 10/09/16 Physical Exam Vital Signs: Vital Signs Temperature 98.2 F 08/23/17 06:00 Pulse Rate 76 08/23/17 06:00 Respiratory Rate 20 08/23/17 06:00 Blood Pressure 155/73 08/23/17 06:00 O2 Sat by Pulse Oximetry (%) 97 08/23/17 03:27 Labs: CBC, BMP 08/23/17 07:45 08/23/17 07:45 Imaging - Results Cat Scan: Report Reviewed, Image Reviewed (I personally reviewed images and discussed with Radiology Attending. CT scan WITHOUT oral or IV contrast reveals a segmental ascending colon colitits, no evidecne obstruction, no evidence acute appendicitis, cannot r/o a right colonic neoplasm.) Ultrasound: Report Reviewed, Image Reviewed (I reveiewd images and reports personally, no evidence of gallbladder pathology, no dilatation of biliary system.)
--- NOTE | 2017-08-23 13:31 | CONSULT ---
Consult - text type - Consultation Consultation Note: Received routine consult for 87 yo female patient PMHx sig for Dementia, Diabetes, HTN, bladder cancer who was admitted for increasing confusion from baseline and fever/leukocytosis. Exam revealed stable vitals, unremarkable U/A, neg CXR, but some mild RUQ discomfort, US ordered which was negative for gallbladder/biliary pathology. - Results Cat Scan: Report Reviewed, Image Reviewed (I personally reviewed images and discussed with Radiology Attending. CT scan WITHOUT oral or IV contrast reveals a segmental ascending colon colitis, no evidence obstruction, no evidence acute appendicitis, cannot r/o a right colonic neoplasm.) CT scan evidence of constipation. Ultrasound: Report Reviewed, Image Reviewed (I reviewed images and reports personally, no evidence of gallbladder pathology, no dilatation of biliary system.) NO radiologic evidence of acute surgical cause for this patient's presentation and symptoms. CT scan suggests left sided colonic constipation without obstruction. Patient would likely benefit from a gentle bowel regimen. Full consult to follow. Diogo Collins MD, FACS mobile phone [phone]
--- NOTE | 2017-08-23 14:14 | PN ---
Physical Exam: SUBJECTIVE: Patient seen and examined at bedside. Pt is pleasantly demented. No complaints at this time. OBJECTIVE: Vital Signs Period Temp Pulse Resp BP Sys/Lemus Pulse Ox Last 24 Hr 97.4 F-974 F 70-82 16-20 103-155/43-74 97-100 Gen: lying in bed, NAD HEENT: NCAT, PERRLA, EOMI Neck: supple, no jvd Cardiac: RRR, s1s2, no m/r/g appreciated Pulm: cta Abd: tenderness to deep palpation of RUQ, Soft, pos BS Ext: no edema, 2+ pulses Laboratory Results - last 24 hr 08/22/17 08/22/17 08/22/17 16:49 16:52 17:48 WBC 21.7 H D RBC 3.66 Hgb 10.8 Hct 33.5 MCV 91.5 MCH 29.6 MCHC 32.3 RDW 12.6 D Plt Count 232 D MPV 10.1 Absolute Neuts (auto) 18.9 Total Counted 100 Neutrophils % 87.0 H D Neutrophils % (Manual) 84.0 H Lymphocytes % 6.9 L D Lymphocytes % (Manual) 14.0 Monocytes % 5.1 Monocytes % (Manual) 2 L Eosinophils % 0.5 D Basophils % 0.5 Nucleated RBC % 0 Hypochromia 1+ Platelet Estimate Adequate Anisocytosis 1+ Macrocytosis 1+ Sodium 135 L Potassium 4.9 Chloride 102 Carbon Dioxide 24 Anion Gap 9 BUN 39 H Creatinine 1.1 H Creat Clearance w eGFR 46.77 POC Glucometer Random Glucose 145 H Lactic Acid Calcium 8.7 Phosphorus Magnesium Total Bilirubin 0.3 D AST 22 ALT 17 Alkaline Phosphatase 83 Total Protein 6.6 Albumin 3.5 Urine Color Yellow Urine Appearance Cloudy Urine pH 5.0 Ur Specific [place] 1.020 Urine Protein 1+ H Urine Glucose (UA) Negative Urine Ketones Negative Urine Blood Negative Urine Nitrite Negative Urine Bilirubin Negative Urine Urobilinogen Negative Ur Leukocyte Esterase Trace Urine WBC (Auto) 7 Urine RBC (Auto) 7 Ur Epithelial Cells Rare Hyaline Casts 5 Urine Mucus Rare 08/22/17 08/22/17 08/23/17 17:52 21:03 05:51 WBC RBC Hgb Hct MCV MCH MCHC RDW Plt Count MPV Absolute Neuts (auto) Total Counted Neutrophils % Neutrophils % (Manual) Lymphocytes % Lymphocytes % (Manual) Monocytes % Monocytes % (Manual) Eosinophils % Basophils % Nucleated RBC % Hypochromia Platelet Estimate Anisocytosis Macrocytosis Sodium Potassium Chloride Carbon Dioxide Anion Gap BUN Creatinine Creat Clearance w eGFR POC Glucometer [phone] Random Glucose Lactic Acid 1.9 Calcium Phosphorus Magnesium Total Bilirubin AST ALT Alkaline Phosphatase Total Protein Albumin Urine Color Urine Appearance Urine pH Ur Specific [place] Urine Protein Urine Glucose (UA) Urine Ketones Urine Blood Urine Nitrite Urine Bilirubin Urine Urobilinogen Ur Leukocyte Esterase Urine WBC (Auto) Urine RBC (Auto) Ur Epithelial Cells Hyaline Casts Urine Mucus 08/23/17 08/23/17 08/23/17 07:45 07:45 07:45 WBC 16.1 H RBC 3.19 L Hgb 9.6 L D Hct 29.1 L MCV 91.2 MCH 30.2 MCHC 33.1 RDW 12.7 Plt Count 188 MPV 10.0 Absolute Neuts (auto) 13.4 Total Counted Neutrophils % 83.3 H Neutrophils % (Manual) Lymphocytes % 8.1 Lymphocytes % (Manual) Monocytes % 5.5 Monocytes % (Manual) Eosinophils % 2.6 D Basophils % 0.5 Nucleated RBC % 0 Hypochromia Platelet Estimate Anisocytosis Macrocytosis Sodium 139 Potassium 3.9 Chloride 107 Carbon Dioxide 26 Anion Gap 6 L BUN 27 H Creatinine 0.8 Creat Clearance w eGFR > 60 POC Glucometer Random Glucose 113 H Lactic Acid 0.7 Calcium 8.2 L Phosphorus 4.0 Magnesium 2.1 Total Bilirubin 0.4 D AST 13 L ALT 16 Alkaline Phosphatase 67 Total Protein 5.7 L Albumin 2.9 L Urine Color Urine Appearance Urine pH Ur Specific [place] Urine Protein Urine Glucose (UA) Urine Ketones Urine Blood Urine Nitrite Urine Bilirubin Urine Urobilinogen Ur Leukocyte Esterase Urine WBC (Auto) Urine RBC (Auto) Ur Epithelial Cells Hyaline Casts Urine Mucus 08/23/17 11:02 WBC RBC Hgb Hct MCV MCH MCHC RDW Plt Count MPV Absolute Neuts (auto) Total Counted Neutrophils % Neutrophils % (Manual) Lymphocytes % Lymphocytes % (Manual) Monocytes % Monocytes % (Manual) Eosinophils % Basophils % Nucleated RBC % Hypochromia Platelet Estimate Anisocytosis Macrocytosis Sodium Potassium Chloride Carbon Dioxide Anion Gap BUN Creatinine Creat Clearance w eGFR POC Glucometer 250 Random Glucose Lactic Acid Calcium Phosphorus Magnesium Total Bilirubin AST ALT Alkaline Phosphatase Total Protein Albumin Urine Color Urine Appearance Urine pH Ur Specific [place] Urine Protein Urine Glucose (UA) Urine Ketones Urine Blood Urine Nitrite Urine Bilirubin Urine Urobilinogen Ur Leukocyte Esterase Urine WBC (Auto) Urine RBC (Auto) Ur Epithelial Cells Hyaline Casts Urine Mucus Active Medications Generic Name Dose Route Start Last Admin Trade Name Paulq PRN Reason Stop Dose Admin Aspirin 81 mg 08/23/17 10:00 08/23/17 09:47 Asa - PO 81 mg DAILY VANDANA Administration Heparin Sodium (Porcine) 5,000 unit 08/23/17 06:00 08/23/17 13:56 Heparin - SQ 5,000 unit TID VANDANA Administration Sodium Chloride 1,000 mls @ 50 mls/hr 08/22/17 23:00 08/22/17 23:04 Normal Saline - IV 08/23/17 22:59 50 mls/hr ASDIR VANDANA Administration Insulin Aspart 1 vial 08/23/17 07:00 08/23/17 11:03 Novolog Vial Sliding Scale - SQ 4 unit ACHS VANDANA Administration Protocol Isosorbide Mononitrate 60 mg 08/23/17 10:00 08/23/17 09:47 Imdur - PO 60 mg DAILY VANDANA Administration Lisinopril 20 mg 08/23/17 10:00 08/23/17 09:47 Prinivil PO 20 mg DAILY VANDANA Administration Metoprolol Succinate 50 mg 08/23/17 22:00 Toprol Xl - PO HS VANDANA ASSESSMENT/PLAN: Pt is an 87 y/o F with PMH Bladder Ca, HTN, DM, Dementia who presented to the ED brought by daughter for AMS and fever 102. Pt was admitted for sepsis. #Sepsis -unknown source -febrile, leukocytosis, azotemia, AMS on admission. -fever resolved, leukocytosis and azotemia improving, mental status likely back to baseline -UA unremarkable -CXR (08/22/2017) unremarkable -Head CT (08/22/2017) negative -Liver U/S (08/22/2017) showed nonspecific coarse echotexture -CTAP (08/23/2017) colonic wall thickening with pericholic fat stranding likely 2/ 2 colitis -Surg consulted #GALO -resolved with hydration #New murmur -f/u echo #HTN -Toprol -Prinivil #DM -ISS -BGM #?Hx CAD -On Isosorbide #FEN -NS@50 -lytes wnl, will replete PRN -diabetic diet #PPx -Hep SQ #dispo -admit med surg Home meds verified Visit type - Emergency Visit Emergency Visit: No - New Patient This patient is new to me today: Yes Date on this admission: 08/23/17 - Critical Care Critical Care patient: No - Discharge Referral Referred to [facility] Med P.C.: No
[2017-08-23] MEDS ORDERED: POLYETHYLENE GLYCOL 3350 119 GM BTL PO ONE (15:37)
[2017-08-23] MEDS ORDERED: GLYCERIN 1 RECTAL SUPPOSITORY, ADULT PR ONE (15:40)
--- NOTE | 2017-08-23 15:45 | PN ---
Teaching Attending Note Name of Resident: Patrice Mac ATTENDING PHYSICIAN STATEMENT I saw and evaluated the patient. I reviewed the resident's note and discussed the case with the resident. I agree with the resident's findings and plan as documented with exceptions below. SUBJECTIVE: Patient seen and examined. Feels better, pleasant. no pain. 12 point ROS limited given her dementia. OBJECTIVE: Vital Signs Period Temp Pulse Resp BP Sys/Lemus Pulse Ox Last 24 Hr 97.4 F-974 F 70-82 16-20 103-155/43-74 97-100 Intake & Output 08/20/17 08/21/17 08/22/17 08/23/17 23:59 23:59 23:59 23:59 Intake Total 740 Balance 740 Weight 135 lb 127 lb 3 oz General: sitting in bed in no acute distress Abdomen:soft, mild RUQ tenderness on deep palpation, NT otherwise, ND, positive bowel sounds Chest: bibasilar rales, L>R Extremities: no edema Neuro: AA, oriented to self, pleasant, facial symmetry, moves all extremities Home Medications Medication Instructions Recorded Aspirin [ASA -] 81 mg PO DAILY 02/04/16 Isosorbide Mononitrate [Imdur -] 60 mg PO DAILY 02/04/16 Metformin HCl [Metformin HCl ER] 500 mg PO BID 02/04/16 Metoprolol Succinate [Toprol Xl] 50 mg PO HS 02/04/16 Lisinopril [Prinivil] 20 mg PO DAILY tablet 02/07/16 Folic Acid 1 mg PO DAILY 10/08/16 Walker [Ultra-Light Rollator] 1 each MC DAILY #1 each 10/09/16 Walker [Ultra-Light Rollator] 1 each DAILY #1 unit 10/09/16 Cefuroxime Axetil [Cefuroxime] 250 mg PO BID 08/23/17 Active Medications Aspirin (Asa -) 81 mg PO DAILY [facility] Last Admin: 08/23/17 09:47 Dose: 81 mg Docusate Sodium (Colace -) 100 mg PO BID [facility] Folic Acid (Folic Acid -) 1 mg PO DAILY [facility] Glycerin (Glycerin Suppository Adult -) 2 each RC ONCE ONE Stop: 08/23/17 17:31 Heparin Sodium (Porcine) (Heparin -) 5,000 unit SQ TID [facility] Last Admin: 08/23/17 13:56 Dose: 5,000 unit Sodium Chloride (Normal Saline -) 1,000 mls @ 50 mls/hr IV ASDIR VANDANA Stop: 08/23/17 22:59 Last Admin: 08/22/17 23:04 Dose: 50 mls/hr Metronidazole (Flagyl 500mg Premixed Ivpb -) 500 mg in 100 mls @ 100 mls/hr IVPB Q8H-IV VANDANA Levofloxacin (Levaquin 500 Mg Premixed Ivpb -) 500 mg in 100 mls @ 100 mls/hr IVPB DAILY [facility]; Protocol Last Admin: 08/23/17 16:28 Dose: 100 mls/hr Insulin Aspart (Novolog Vial Sliding Scale -) 1 vial SQ ACHS [facility]; Protocol Last Admin: 08/23/17 16:28 Dose: Not Given Isosorbide Mononitrate (Imdur -) 60 mg PO DAILY [facility] Last Admin: 08/23/17 09:47 Dose: 60 mg Lisinopril (Prinivil) 20 mg PO DAILY [facility] Last Admin: 08/23/17 09:47 Dose: 20 mg Metoprolol Succinate (Toprol Xl -) 50 mg PO HS [facility] Polyethylene Glycol (Miralax (For Daily Use) -) 17 gm PO QID [facility] Abnormal Lab Results 08/22/17 08/22/17 08/22/17 16:49 16:52 17:48 WBC 21.7 H D RBC Hgb Hct Neutrophils % 87.0 H D Neutrophils % (Manual) 84.0 H Lymphocytes % 6.9 L D Monocytes % (Manual) 2 L Sodium 135 L Anion Gap BUN 39 H Creatinine 1.1 H Random Glucose 145 H Calcium AST Total Protein Albumin Urine Protein 1+ H 08/23/17 08/23/17 07:45 07:45 WBC 16.1 H RBC 3.19 L Hgb 9.6 L D Hct 29.1 L Neutrophils % 83.3 H Neutrophils % (Manual) Lymphocytes % Monocytes % (Manual) Sodium Anion Gap 6 L BUN 27 H Creatinine Random Glucose 113 H Calcium 8.2 L AST 13 L Total Protein 5.7 L Albumin 2.[address] A/P results reviewed ASSESSMENT AND PLAN: 87 yof PMHx of Bladder Ca, HTN, DM, Dementia, admitted with fevers, AMS, now CT A/P with colitis and constipation/fecal impaction. -SIRS, ?ascending colitis -Constipation/fecal impaction -AMS, suspect toxic metabolic encephalopathy from above -Bladder Ca -HTN -DM -Dementia Plan: Start levaquin/flagyl. GI consult appreciated, enema x 2, miralax QID. Blood cx. u/a, CXR neg. no other focal s/s concerning for infection. RUQ mild vague tenderness, neg Power's sign, CT A/P, RUQ US neg for gall bladder concerns. Surgery input noted. Monitor for now. Metoprolol/Imdur/lisinopril/ASA. DVTPPX with heparin Dispo pending clinical improvement.
--- NOTE | 2017-08-23 15:56 | CON.GI ---
Consult Consult Specialty:: GI Reason for Consultation:: Abnl CT abdomen - History of Present Illness History of Present Illness: chart reviewed. The events noted. As per initial intake: The patient is an 87 yo f w/ PMH Bladder Ca, HTN, DM, Dementia who was brought to the ED from home by her daughter for AMS. Patient is confused and the following history was obtained from the patient's daughter at bedside. The patient is demented at baseline with occasional episodes of confusion in the evenings, but the patient has become progressively more confused and disoriented over the past 1 week. In addition to this, the patient has had a decreased appetite and decreased PO intake. This afternoon, the patient's daughter measured a temperature of 102 degrees. She administered 500mg tylenol which controlled the fever at home. The patient and her daughter also endorse constipation for the past month. Patient denies chills, chest pain, SOB, abdominal pain, diarrhea or dysuria. ER course was notable for: (1) CT head negative for acute pathology (2) CXR WNL (3) WBC 21.7, Cr. 1.1, BUN 39 Subsequently, CT scan of the abdomen and pelvis without contrast showed thickened right colon with pericolonic fat stranding, copious amounts of stool with distal stool impaction. ultrasound showed no significant, acute pathology. At the time of this and contacted the patient appears not in distress, or discomfort. As nontoxic appearance. Awake and alert, confused. Normal abdominal exam. No bowel movements reported by the day nurse. Patient tolerated breakfast and lunch. - History Source History Provided By: Family Member, Medical Record - Past Medical History EQUIPMENT LEAD: Yes: Dementia. No: CVA Cardio/Vascular: Yes: CAD, HTN. No: AFIB, Aneurysm Pulmonary: No: O2 Dependent, Pneumonia, Previously Intubated, Pulmonary Embolus Gastrointestinal: No: Cancer Hepatobiliary: No: Cirrhosis Renal/: No: Renal Failure Psych: No: Addictions Musculoskeletal: Yes: Osteoarthritis Rheumatology: No: Sarcoidosis Endocrine: Yes: Diabetes Mellitus - Past Surgical History Past Surgical History: Yes: CABG - Alcohol/Substance Use Hx Alcohol Use: No - Smoking History Smoking history: Never smoked Have you smoked in the past 12 months: No Aproximately how many cigarettes per day: 0 - Social History Usual Living Arrangement: With Child History of Recent Travel: No Home Medications - Allergies Allergies/Adverse Reactions: Allergies Allergy/AdvReac Type Severity Reaction Status Date / Time No Known Allergies Allergy Verified 08/22/17 16:08 - Home Medications Home Medications: Ambulatory Orders Aspirin [ASA -] 81 mg PO DAILY 02/04/16 Isosorbide Mononitrate [Imdur -] 60 mg PO DAILY 02/04/16 Metformin HCl [Metformin HCl ER] 500 mg PO BID 02/04/16 Metoprolol Succinate [Toprol Xl] 50 mg PO HS 02/04/16 Lisinopril [Prinivil] 20 mg PO DAILY tablet 02/07/16 Folic Acid 1 mg PO DAILY 10/08/16 Walker [Ultra-Light Rollator] 1 each MC DAILY #1 each 10/09/16 Walker [Ultra-Light Rollator] 1 each MC DAILY #1 unit 10/09/16 Cefuroxime Axetil [Cefuroxime] 250 mg PO BID 08/23/17 Family Disease History - Family Disease History Family History: Unremarkable Review of Systems Findings/Remarks: as per H&P, HPI and emergency department records Physical Exam-GI Vital Signs: Vital Signs Temperature 97.8 F 08/23/17 14:00 Pulse Rate 74 08/23/17 14:00 Respiratory Rate 20 08/23/17 14:00 Blood Pressure 112/47 08/23/17 14:00 O2 Sat by Pulse Oximetry (%) 97 08/23/17 03:27 Constitutional: Yes: No Distress, Calm Eyes: Yes: Conjunctiva Clear HENT: Yes: Atraumatic Neck: Yes: Supple Cardiovascular: Yes: Regular Rate and Rhythm Respiratory: Yes: Regular Gastrointestinal Inspection: No: Ascites, Distention ...Auscultate: Yes: Normoactive Bowel Sounds ...Palpate: Yes: Soft, Splenomegaly. No: Firm/Rigid, Guarding, Mass, Pulsatile Mass, Tenderness, Tenderness, Epigastium, Tenderness, Rebound Neurological: Yes: Alert Labs: CBC, BMP 08/23/17 07:45 08/23/17 07:45 Laboratory Last Values WBC 16.1 K/mm3 (4.0-10.0) H 08/23/17 07:45 RBC 3.19 M/mm3 (3.60-5.2) L 08/23/17 07:45 Hgb 9.6 GM/dL (10.7-15.3) L D 08/23/17 07:45 Hct 29.1 % (32.4-45.2) L 08/23/17 07:45 MCV 91.2 fl (80-96) 08/23/17 07:45 MCH 30.2 pg (25.7-33.7) 08/23/17 07:45 MCHC 33.1 g/dl (32.0-36.0) 08/23/17 07:45 RDW 12.7 % (11.6-15.6) 08/23/17 07:45 Plt Count 188 K/MM3 (134-434) 08/23/17 07:45 MPV 10.0 fl (7.5-11.1) 08/23/17 07:45 Absolute Neuts (auto) 13.4 # 08/23/17 07:45 Total Counted 100 08/22/17 16:49 Neutrophils % 83.3 % (42.8-82.8) H 08/23/17 07:45 Neutrophils % (Manual) 84.0 % (42.8-82.8) H 08/22/17 16:49 Lymphocytes % 8.1 % (8-40) 08/23/17 07:45 Lymphocytes % (Manual) 14.0 % (8-40) 08/22/17 16:49 Monocytes % 5.5 % (3.8-10.2) 08/23/17 07:45 Monocytes % (Manual) 2 % (3.8-10.2) L 08/22/17 16:49 Eosinophils % 2.6 % (0-4.5) D 08/23/17 07:45 Basophils % 0.5 % (0-2.0) 08/23/17 07:45 Nucleated RBC % 0 % (0-0) 08/23/17 07:45 Hypochromia 1+ 08/22/17 16:49 Platelet Estimate Adequate 08/22/17 16:49 Anisocytosis 1+ 08/22/17 16:49 Macrocytosis 1+ 08/22/17 16:49 Sodium 139 mmol/L (136-145) 08/23/17 07:45 Potassium 3.9 mmol/L (3.5-5.1) 08/23/17 07:45 Chloride 107 mmol/L (98-107) 08/23/17 07:45 Carbon Dioxide 26 mmol/L (21-32) 08/23/17 07:45 Anion Gap 6 (8-16) L 08/23/17 07:45 BUN 27 mg/dL (7-18) H 08/23/17 07:45 Creatinine 0.8 mg/dL (0.55-1.02) 08/23/17 07:45 Creat Clearance w eGFR > 60 (>60) 08/23/17 07:45 POC Glucometer 250 UNITS (80-120) 08/23/17 11:02 Random Glucose 113 mg/dL (74-106) H 08/23/17 07:45 Lactic Acid 0.7 mmol/L (0.0-2.0) 08/23/17 07:45 Calcium 8.2 mg/dL (8.5-10.1) L 08/23/17 07:45 Phosphorus 4.0 mg/dL (2.5-4.9) 08/23/17 07:45 Magnesium 2.1 mg/dL (1.8-2.4) 08/23/17 07:45 Total Bilirubin 0.4 mg/dL (0.2-1.0) D 08/23/17 07:45 AST 13 U/L (15-37) L 08/23/17 07:45 ALT 16 U/L (12-78) 08/23/17 07:45 Alkaline Phosphatase 67 U/L (45-117) 08/23/17 07:45 Total Protein 5.7 g/dl (6.4-8.2) L 08/23/17 07:45 Albumin 2.9 g/dl (3.4-5.0) L 08/23/17 07:45 Urine Color Yellow 08/22/17 17:48 Urine Appearance Cloudy 08/22/17 17:48 Urine pH 5.0 (5.0-8.0) 08/22/17 17:48 Ur Specific Tolar 1.020 (1.001-1.035) 08/22/17 17:48 Urine Protein 1+ (NEGATIVE) H 08/22/17 17:48 Urine Glucose (UA) Negative (NEGATIVE) 08/22/17 17:48 Urine Ketones Negative (NEGATIVE) 08/22/17 17:48 Urine Blood Negative (NEGATIVE) 08/22/17 17:48 Urine Nitrite Negative (NEGATIVE) 08/22/17 17:48 Urine Bilirubin Negative (<2.0 mg/dL) 08/22/17 17:48 Urine Urobilinogen Negative mg/dL (0.2-1.0) 08/22/17 17:48 Ur Leukocyte Esterase Trace (NEGATIVE) 08/22/17 17:48 Urine WBC (Auto) 7 /hpf (3-5) 08/22/17 17:48 Urine RBC (Auto) 7 /hpf (0-3) 08/22/17 17:48 Ur Epithelial Cells Rare /HPF (FEW) 08/22/17 17:48 Hyaline Casts 5 /lpf 08/22/17 17:48 Urine Mucus Rare 08/22/17 17:48 Imaging - Results Cat Scan: Report Reviewed Ultrasound: Report Reviewed Problem List - Problems (1) Colitis Code(s): K52.9 - NONINFECTIVE GASTROENTERITIS AND COLITIS, UNSPECIFIED (2) Constipation Code(s): K59.00 - CONSTIPATION, UNSPECIFIED (3) Altered mental status Code(s): R41.82 - ALTERED MENTAL STATUS, UNSPECIFIED Qualifiers: Altered mental status type: unspecified Qualified Code(s): R41.82 - Altered mental status, unspecified (4) Leukocytosis Code(s): D72.829 - ELEVATED WHITE BLOOD CELL COUNT, UNSPECIFIED Qualifiers: Leukocytosis type: unspecified Qualified Code(s): D72.829 - Elevated white blood cell count, unspecified Assessment/Plan an 87-year-old female with leukocytosis, CT scan evidence of colitis and constipation with possible impaction. The patient does not appear toxic, or in distress and has normal abdominal exam with normal bowel sounds. She is tolerating current diet. Agree with antibiotics to cover colonic pathogens. Top water enema 2 followed by MiraLAX 4 times a day 1-2 days. Continue current diet. Daily CBC, CMP. Follow stool test results. C. difficile colitis is not suspected at this time.
[2017-08-23] MEDS ORDERED: GLYCERIN 1 RECTAL SUPPOSITORY, ADULT RC ONE (17:30)
[2017-08-23] MEDS: POLYETHYLENE GLYCOL 3350 119 GM BTL PO SCH ×2 (17:47→21:35)
[2017-08-23] MEDS: DOCUSATE SODIUM 100 MG CAPSULE (FP) PO SCH (21:35)
[2017-08-24] MEDS: HEPARIN NA (PORCINE) 5,000 UNITS/ML 1ML VIAL SQ SCH ×2 (05:49→14:47)
[2017-08-24] MEDS: INSULIN SLIDING SCALE (NOVOLOG) 1 VIAL SQ SCH ×2 (06:01→10:56)
[2017-08-24 09:19] LABS: HEMATOCRIT 28.8 % (32.4-45.2); HEMOGLOBIN 9.6 GM/dL (10.7-15.3); LYMPH % 12.5 % (8-40); MCH 30.4 pg (25.7-33.7); MCHC 33.3 g/dl (32.0-36.0); MEAN CELL VOLUME 91.3 fl (80-96); MEAN PLT VOLUME 9.8 fl (7.5-11.1); MONO % 6.6 % (3.8-10.2); NEUT % 75.9 % (42.8-82.8); PLATELET COUNT 192 K/MM3 (134-434); RBC 3.15 M/mm3 (3.60-5.2); RDW 12.3 % (11.6-15.6); WHITE BLOOD COUNT 11.2 K/mm3 (4.0-10.0)
--- NOTE | 2017-08-24 09:29 | PN ---
Teaching Attending Note Name of Resident: Patrice Mac ATTENDING PHYSICIAN STATEMENT I saw and evaluated the patient. I reviewed the resident's note and discussed the case with the resident. I agree with the resident's findings and plan as documented with exceptions below. SUBJECTIVE: Patient seen and examined. Feels good, no nausea, vomiting, abdominal pain. tolerating diet well. OBJECTIVE: Vital Signs Period Temp Pulse Resp BP Sys/Lemus Pulse Ox Last 24 Hr 97.8 F-99.2 F 65-74 18-20 110-130/47-61 97 Intake & Output 08/21/17 08/22/17 08/23/17 08/24/17 23:59 23:59 23:59 23:59 Intake Total 1680 Balance 1680 Weight 135 lb 127 lb 3 oz 134 lb General: sitting in bed having breakfast, pleasant Chest: CTAB, no rales or wheezing Abdomen:soft, NT throughout, ND, positive bowel sounds, no RUQ tenderness Neuro: AA, oriented to place, self, knows is August (also that her daughter's birthday was recently), but not the year, pleasant and awake Home Medications Medication Instructions Recorded Aspirin [ASA -] 81 mg PO DAILY 02/04/16 Isosorbide Mononitrate [Imdur -] 60 mg PO DAILY 02/04/16 Metformin HCl [Metformin HCl ER] 500 mg PO BID 02/04/16 Metoprolol Succinate [Toprol Xl] 50 mg PO HS 02/04/16 Lisinopril [Prinivil] 20 mg PO DAILY tablet 02/07/16 Folic Acid 1 mg PO DAILY 10/08/16 Walker [Ultra-Light Rollator] 1 each DAILY #1 each 10/09/16 Walker [Ultra-Light Rollator] 1 each DAILY #1 unit 10/09/16 Cefuroxime Axetil [Cefuroxime] 250 mg PO BID 08/23/17 Home Medication List Medication Instructions Recorded Confirmed Type Aspirin [ASA -] 81 mg PO DAILY 02/04/16 11/30/16 History Isosorbide Mononitrate [Imdur -] 60 mg PO DAILY 02/04/16 08/23/17 History Metformin HCl [Metformin HCl ER] 500 mg PO BID 02/04/16 08/23/17 History Metoprolol Succinate [Toprol Xl] 50 mg PO HS 02/04/16 08/23/17 History Folic Acid 1 mg PO DAILY 10/08/16 11/30/16 History Cefuroxime Axetil [Cefuroxime] 250 mg PO BID 08/23/17 08/23/17 History Active Medications Aspirin (Asa -) 81 mg PO DAILY [facility] Last Admin: 08/23/17 09:47 Dose: 81 mg Docusate Sodium (Colace -) 100 mg PO BID [facility] Last Admin: 08/23/17 21:35 Dose: 100 mg Folic Acid (Folic Acid -) 1 mg PO DAILY [facility] Heparin Sodium (Porcine) (Heparin -) 5,000 unit SQ TID [facility] Last Admin: 08/24/17 05:49 Dose: 5,000 unit Metronidazole (Flagyl 500mg Premixed Ivpb -) 500 mg in 100 mls @ 100 mls/hr IVPB Q8H-IV [facility] Last Admin: 08/24/17 01:47 Dose: 100 mls/hr Levofloxacin (Levaquin 500 Mg Premixed Ivpb -) 500 mg in 100 mls @ 100 mls/hr IVPB DAILY [facility]; Protocol Last Admin: 08/23/17 16:28 Dose: 100 mls/hr Insulin Aspart (Novolog Vial Sliding Scale -) 1 vial SQ ACHS [facility]; Protocol Last Admin: 08/24/17 06:01 Dose: Not Given Isosorbide Mononitrate (Imdur -) 60 mg PO DAILY [facility] Last Admin: 08/23/17 09:47 Dose: 60 mg Lisinopril (Prinivil) 20 mg PO DAILY [facility] Last Admin: 08/23/17 09:47 Dose: 20 mg Metoprolol Succinate (Toprol Xl -) 50 mg PO HS [facility] Last Admin: 08/23/17 21:35 Dose: 50 mg Polyethylene Glycol (Miralax (For Daily Use) -) 17 gm PO QID [facility] Last Admin: 08/23/17 21:35 Dose: 17 gm Laboratory Results - last 24 hr 08/23/17 08/23/17 08/23/17 11:02 16:26 21:01 WBC RBC Hgb Hct MCV MCH MCHC RDW Plt Count MPV Absolute Neuts (auto) Neutrophils % Lymphocytes % Monocytes % Eosinophils % Basophils % Nucleated RBC % POC Glucometer 250 98 184 08/24/17 08/24/17 05:47 09:00 WBC 11.2 H D RBC 3.15 L Hgb 9.6 L Hct 28.8 L MCV 91.3 MCH 30.4 MCHC 33.3 RDW 12.3 Plt Count 192 MPV 9.8 Absolute Neuts (auto) 8.5 Neutrophils % 75.9 Lymphocytes % 12.5 D Monocytes % 6.6 Eosinophils % 4.0 Basophils % 1.0 Nucleated RBC % 0 POC Glucometer 103 Microbiology 08/23/17 00:50 Urine - Urine Clean Catch Urine Culture - Final Contaminated: Please Repeat 08/22/17 00:05 Blood - Peripheral Venous Blood Culture - Preliminary NO GROWTH OBTAINED AFTER 24 HOURS, INCUBATION TO CONTINUE FOR 4 DAYS. 08/22/17 00:05 Blood - Peripheral Venous Blood Culture - Preliminary NO GROWTH OBTAINED AFTER 24 HOURS, INCUBATION TO CONTINUE FOR 4 DAYS. ASSESSMENT AND PLAN: 87 yof PMHx of Bladder Ca, HTN, DM, Dementia, admitted with fevers, AMS, now CT A/P with colitis and constipation/fecal impaction. -SIRS, Likely ascending colitis from severe constipation -Severe constipation/fecal impaction -AMS, suspect toxic metabolic encephalopathy from above -Bladder Ca -HTN -DM -Dementia Plan: Levaquin/flagyl day 2. GI consult appreciated, s/p large BM post enema, abdominal symptoms resolved. Continue Miralax QID Blood cx neg. u/a, CXR neg. no other focal s/s concerning for infection. Surgery input noted. Metoprolol/Imdur/lisinopril/ASA. DVTPPX with heparin PT eval Dispo planning in 24 hours if no new events and disposition arrangements made. Plan discussed with nursing, CM.
[2017-08-24 09:58] LABS: CHLORIDE 107 mmol/L (98-107); POTASSIUM 4.1 mmol/L (3.5-5.1); SODIUM 140 mmol/L (136-145)
[2017-08-24] MEDS ORDERED: FOLIC ACID 1 MG TABLET (FP) PO SCH (10:00)
[2017-08-24 10:20] LABS: ALBUMIN 2.7 g/dl (3.4-5.0); ALK PHOS 66 U/L (45-117); ANION GAP 9 (8-16); BILIRUBIN,TOTAL 0.3 mg/dL (0.2-1.0); BLOOD UREA NITROGEN 24 mg/dL (7-18); CALCIUM 8.3 mg/dL (8.5-10.1); CO2 24 mmol/L (21-32); CREATININE 0.8 mg/dL (0.55-1.02); GLUCOSE,RANDOM 165 mg/dL (74-106); SGOT/AST 15 U/L (15-37); SGPT/ALT 17 U/L (12-78); TOT PROT 5.6 g/dl (6.4-8.2)
[2017-08-24] MEDS: ISOSORBIDE MONONITRATE 60 MG TAB.SR.24H (FP) PO SCH (10:24)
[2017-08-24] MEDS: ASPIRIN 81 MG CHEWABLE TABLETS PO SCH (10:24)
[2017-08-24] MEDS: POLYETHYLENE GLYCOL 3350 119 GM BTL PO SCH ×2 (10:24→14:47)
[2017-08-24] MEDS: DOCUSATE SODIUM 100 MG CAPSULE (FP) PO SCH (10:24)
[2017-08-24] MEDS: LISINOPRIL 20 MG TABLET (FP) PO SCH (10:24)
--- NOTE | 2017-08-24 11:00 | PN ---
Progress Note (short form) - Note Progress Note: Resting in NAD. Reports feeling OK. No CP or SOB. Intake & Output 08/21/17 08/22/17 08/23/17 08/24/17 23:59 23:59 23:59 23:59 Intake Total 1680 Balance 1680 Weight 135 lb 127 lb 3 oz 134 lb Last Vital Signs Temp Pulse Resp BP Pulse Ox 99.2 F 70 18 130/52 97 08/24/17 05:23 08/24/17 05:23 08/24/17 05:23 08/24/17 05:23 08/23/17 22:00 Active Medications Aspirin (Asa -) 81 mg PO DAILY [facility] Last Admin: 08/24/17 10:24 Dose: 81 mg Docusate Sodium (Colace -) 100 mg PO BID [facility] Last Admin: 08/24/17 10:24 Dose: 100 mg Folic Acid (Folic Acid -) 1 mg PO DAILY [facility] Last Admin: 08/24/17 10:24 Dose: 1 mg Heparin Sodium (Porcine) (Heparin -) 5,000 unit SQ TID [facility] Last Admin: 08/24/17 05:49 Dose: 5,000 unit Metronidazole (Flagyl 500mg Premixed Ivpb -) 500 mg in 100 mls @ 100 mls/hr IVPB Q8H-IV [facility] Last Admin: 08/24/17 10:23 Dose: 100 mls/hr Levofloxacin (Levaquin 500 Mg Premixed Ivpb -) 500 mg in 100 mls @ 100 mls/hr IVPB DAILY [facility]; Protocol Last Admin: 08/24/17 10:30 Dose: 100 mls/hr Insulin Aspart (Novolog Vial Sliding Scale -) 1 vial SQ ACHS [facility]; Protocol Last Admin: 08/24/17 10:56 Dose: 4 unit Isosorbide Mononitrate (Imdur -) 60 mg PO DAILY [facility] Last Admin: 08/24/17 10:24 Dose: 60 mg Lisinopril (Prinivil) 20 mg PO DAILY [facility] Last Admin: 08/24/17 10:24 Dose: 20 mg Metoprolol Succinate (Toprol Xl -) 50 mg PO HS [facility] Last Admin: 08/23/17 21:35 Dose: 50 mg Polyethylene Glycol (Miralax (For Daily Use) -) 17 gm PO QID [facility] Last Admin: 08/24/17 10:24 Dose: 17 gm Constitutional: Yes: NAD Eyes: Yes: EOM Intact HENT: Yes: Normocephalic Neck: Yes: Trachea Midline Cardiovascular: Yes: Regular Rate and Rhythm, S1, S2 Respiratory: Yes: Clear, diminished at the bases Gastrointestinal: Yes: Normal Bowel Sounds, Soft. No: Tenderness, Tenderness, Rebound Renal/: No: CVA Tenderness - Left, CVA Tenderness - Right Breast(s): Yes: WNL Musculoskeletal: Yes: WNL Extremities: Yes: WNL Neurological: Yes: Pre-Existing Deficit Labs: Laboratory Results - last 24 hr 08/23/17 08/23/17 08/23/17 11:02 16:26 21:01 WBC RBC Hgb Hct MCV MCH MCHC RDW Plt Count MPV Absolute Neuts (auto) Neutrophils % Lymphocytes % Monocytes % Eosinophils % Basophils % Nucleated RBC % Sodium Potassium Chloride Carbon Dioxide Anion Gap BUN Creatinine Creat Clearance w eGFR POC Glucometer 250 98 184 Random Glucose Calcium Total Bilirubin AST ALT Alkaline Phosphatase Total Protein Albumin 08/24/17 08/24/17 08/24/17 05:47 09:00 09:00 WBC 11.2 H D RBC 3.15 L Hgb 9.6 L Hct 28.8 L MCV 91.3 MCH 30.4 MCHC 33.3 RDW 12.3 Plt Count 192 MPV 9.8 Absolute Neuts (auto) 8.5 Neutrophils % 75.9 Lymphocytes % 12.5 D Monocytes % 6.6 Eosinophils % 4.0 Basophils % 1.0 Nucleated RBC % 0 Sodium 140 Potassium 4.1 Chloride 107 Carbon Dioxide 24 Anion Gap 9 BUN 24 H Creatinine 0.8 Creat Clearance w eGFR > 60 POC Glucometer 103 Random Glucose 165 H Calcium 8.3 L Total Bilirubin 0.3 D AST 15 ALT 17 Alkaline Phosphatase 66 Total Protein 5.6 L Albumin 2.7 L Problem List - Problems (1) UTI (urinary tract infection) Code(s): N39.0 - URINARY TRACT INFECTION, SITE NOT SPECIFIED Qualifiers: Urinary tract infection type: site unspecified Hematuria presence: without hematuria Qualified Code(s): N39.0 - Urinary tract infection, site not specified (2) Bladder cancer Code(s): C67.9 - MALIGNANT NEOPLASM OF BLADDER, UNSPECIFIED Qualifiers: Bladder location: unspecified site Qualified Code(s): C67.9 - Malignant neoplasm of bladder, unspecified (3) CAD (coronary artery disease) Code(s): I25.10 - ATHSCL HEART DISEASE OF [place] CORONARY ARTERY W/O ANG PCTRS (4) Dementia Code(s): F03.90 - UNSPECIFIED DEMENTIA WITHOUT BEHAVIORAL DISTURBANCE Assessment/Plan SEPSIS: ASCENDING COLITIS +/- TRACT DEMENTIA ASHD CABG FAILURE TO THRIVE ABX PER ID FOLLOW CULTURES O2 PRN VTE PROPHYLAXIS DR ISBELL
--- NOTE | 2017-08-24 12:40 | DS ---
Physical Exam: SUBJECTIVE: Patient seen and examined at bedside. No complaints at this time. OBJECTIVE: Vital Signs Period Temp Pulse Resp BP Sys/Lemus Pulse Ox Last 24 Hr 97.3 F-99.2 F 60-74 18-20 110-153/47-62 97 PHYSICAL EXAM Gen: lying in bed, NAD HEENT: NCAT, PERRLA, EOMI Neck: supple, no jvd Cardiac: RRR, s1s2, 4/6 blowing systolic murmur at LUSB appreciated. No r/g Pulm: cta Abd: tenderness to deep palpation of RUQ, Soft, pos BS Ext: no edema, 2+ pulses LABS Laboratory Results - last 24 hr 08/23/17 08/23/17 08/24/17 16:26 21:01 05:47 WBC RBC Hgb Hct MCV MCH MCHC RDW Plt Count MPV Absolute Neuts (auto) Neutrophils % Lymphocytes % Monocytes % Eosinophils % Basophils % Nucleated RBC % Sodium Potassium Chloride Carbon Dioxide Anion Gap BUN Creatinine Creat Clearance w eGFR POC Glucometer 98 184 103 Random Glucose Calcium Total Bilirubin AST ALT Alkaline Phosphatase Total Protein Albumin 08/24/17 08/24/17 08/24/17 09:00 09:00 10:55 WBC 11.2 H D RBC 3.15 L Hgb 9.6 L Hct 28.8 L MCV 91.3 MCH 30.4 MCHC 33.3 RDW 12.3 Plt Count 192 MPV 9.8 Absolute Neuts (auto) 8.5 Neutrophils % 75.9 Lymphocytes % 12.5 D Monocytes % 6.6 Eosinophils % 4.0 Basophils % 1.0 Nucleated RBC % 0 Sodium 140 Potassium 4.1 Chloride 107 Carbon Dioxide 24 Anion Gap 9 BUN 24 H Creatinine 0.8 Creat Clearance w eGFR > 60 POC Glucometer 211 Random Glucose 165 H Calcium 8.3 L Total Bilirubin 0.3 D AST 15 ALT 17 Alkaline Phosphatase 66 Total Protein 5.6 L Albumin 2.7 L HOSPITAL COURSE: Date of Admission:08/22/17 Date of Discharge: 08/24/17 Pt is an 87 y/o F with PMH Bladder Ca, HTN, DM, Dementia who presented to the ED brought by daughter for AMS and fever 102. Pt was admitted for sepsis. Initially, source was unclear. Pt was febrile with leukocytosis, azotemia, AMS on admission. Fever resolved, leukocytosis and azotemia improved, and mental status returned to her (likely) baseline. Pt had a UA, which was unremarkable. CXR (08/22/2017) was unremarkable. Head CT (08/22/2017) was negative. Liver U/S (08/22) showed nonspecific coarse echotexture. CTAP (08/23/2017), however, showed colonic wall thickening with pericholic fat stranding likely 2/2 colitis. It also showed copious stool. This was felt to be the source of the pt's AMS. Surg consulted and felt she was not a surgical candidate. GI was consulted and recommended a bowel regimen as well as blood work, stool studies, and follow up. She was not felt to be at particular risk of C. diff. Pt had GALO on admission, which resolved with hydration. Pt had New murmur. Echo revealed mild-moderate Ao stenosis. Pt given instructions to follow up with cardiology. Pt's HTN was treated with Toprol and Prinivil. Pt was put on BGM and ISS for DM/ Pt was continued on home Isosorbide. Spoke with pt's daughter today. She is comfortable and enthusiastic about taking pt home today. She is currently in NAD and stable for d/c home under the care of her daughter. Minutes to complete discharge: 30 Discharge Summary Reason For Visit: LEUKOCYTOSIS ALTERED MENTAL STATE Current Active Problems Altered mental status (Acute) Colitis (Acute) Constipation (Acute) Leukocytosis (Acute) Condition: Good - Instructions Diet, Activity, Other Instructions: You were found with fevers, severe constipaton and infection/inflammation of your colon. Make sure that you follow up with your primary care doctor. You should follow up with the G.I. doctor, Dr Carroll in 1-2 weeks, please discuss outpatient colonoscopy if interested. You should follow up with your internet systems administrator about your heart murmur. You were noted with severe constipation, please ensure to maintain adequate bowel regimen. Take Senna and Colace daily for 1 week. Take miralax twice daily for next 3-5 days. If you notice multiple bowel movements or diarrhea, then stop the laxatives for a day and then resume senna and colace' Can add miralax once to twice daily if no bowel movement in 2-3 days. Take following antibiotics for 1 week. Levaquin 500 mg daily Flagyl 500 mg 3 times daily Continue all your home medications as before. If you experience similar symptoms or if your symptoms, new fevers/chills, belly pain, dark or bloody stools, diarrhea or new concerns, please return to the emergency department. Referrals: Jaswant Armendariz MD [Primary Care Provider] - 1 Week Deangelo Carroll MD [Staff Physician] - Rich Rogel MD [Staff Physician] - Disposition: [facility]/HOME HEALTH CARE - Home Medications Comprehensive Discharge Medication List: Ambulatory Orders Isosorbide Mononitrate [Imdur -] 60 mg PO DAILY 02/04/16 Metformin HCl [Metformin HCl ER] 500 mg PO BID 02/04/16 Metoprolol Succinate [Toprol Xl] 50 mg PO HS 02/04/16 Lisinopril [Prinivil] 20 mg PO DAILY tablet 02/07/16 Folic Acid 1 mg PO DAILY 10/08/16 Walker [Ultra-Light Rollator] 1 each MC DAILY #1 each 10/09/16 Aspirin [ASA -] 81 mg PO DAILY #30 tab.chew 08/24/17 Docusate Sodium [Colace] 100 mg PO DAILY #7 capsule 08/24/17 Polyethylene Glycol 3350 [Miralax (For Daily Use) -] 17 gm PO BID 7 Days #1 bottle 08/24/17 Sennosides [Senna] 2 tab PO DAILY #14 tablet 08/24/17 levoFLOXacin [Levaquin -] 500 mg PO DAILY #7 tablet 08/24/17 metroNIDAZOLE [Flagyl -] 500 mg PO TID #21 tablet 08/24/17 This patient is new to me today: No Emergency Visit: No Critical Care patient: No - Discharge Referral Referred to [facility] No
[2017-08-24 14:44] VITALS: BP 121/50; PULSE 62; TEMP 97.2
--- NOTE | 2017-08-24 15:55 | CONSULT ---
Consult Consult Specialty:: General Surgery Reason for Consultation:: Fever, worsening mental status from baseline, abdominal pain - History of Present Illness Chief Complaint: Obtianed form family: Fever, mental status changes, abdominal pain History of Present Illness: Received routine consult for 87 yo female patient PMHx sig for Dementia, Diabetes, HTN, bladder cancer who was admitted for increasing confusion from baseline and fever/leukocytosis. Exam revealed stable vitals, unremarkable U/A, neg CXR, but some mild RUQ discomfort, US ordered which was negative for gallbladder/biliary pathology. - History Source History Provided By: Family Member, Medical Record Limitations to Obtaining History: Poor Historian (mild) - Past Medical History SITE MEDICAL DIRECTOR: Yes: Dementia. No: CVA Cardio/Vascular: Yes: CAD, HTN. No: AFIB, Aneurysm Pulmonary: No: O2 Dependent, Pneumonia, Previously Intubated, Pulmonary Embolus Gastrointestinal: No: Cancer Hepatobiliary: No: Cirrhosis Renal/: No: Renal Failure Psych: No: Addictions Musculoskeletal: Yes: Osteoarthritis Rheumatology: No: Sarcoidosis Endocrine: Yes: Diabetes Mellitus - Past Surgical History Past Surgical History: Yes: CABG - Alcohol/Substance Use Hx Alcohol Use: No - Smoking History Smoking history: Never smoked Have you smoked in the past 12 months: No Aproximately how many cigarettes per day: 0 - Social History Usual Living Arrangement: With Child History of Recent Travel: No Home Medications - Allergies Allergies/Adverse Reactions: Allergies Allergy/AdvReac Type Severity Reaction Status Date / Time No Known Allergies Allergy Verified 08/22/17 16:08 - Home Medications Home Medications: Ambulatory Orders Isosorbide Mononitrate [Imdur -] 60 mg PO DAILY 02/04/16 Metformin HCl [Metformin HCl ER] 500 mg PO BID 02/04/16 Metoprolol Succinate [Toprol Xl] 50 mg PO HS 02/04/16 Lisinopril [Prinivil] 20 mg PO DAILY tablet 02/07/16 Folic Acid 1 mg PO DAILY 10/08/16 Walker [Ultra-Light Rollator] 1 each MC DAILY #1 each 10/09/16 Aspirin [ASA -] 81 mg PO DAILY #30 tab.chew 08/24/17 Docusate Sodium [Colace] 100 mg PO DAILY #7 capsule 08/24/17 Polyethylene Glycol 3350 [Miralax (For Daily Use) -] 17 gm PO BID 7 Days #1 bottle 08/24/17 Sennosides [Senna] 2 tab PO DAILY #14 tablet 08/24/17 levoFLOXacin [Levaquin -] 500 mg PO DAILY #7 tablet 08/24/17 metroNIDAZOLE [Flagyl -] 500 mg PO TID #21 tablet 08/24/17 Physical Exam Vital Signs: Vital Signs Temperature 97.2 F L 08/24/17 14:43 Pulse Rate 62 08/24/17 14:43 Respiratory Rate 18 08/24/17 09:00 Blood Pressure 121/50 08/24/17 14:43 O2 Sat by Pulse Oximetry (%) 97 08/23/17 22:00 Constitutional: Yes: No Distress, Calm, Thin Eyes: Yes: Conjunctiva Clear, EOM Intact HENT: Yes: Atraumatic, Normocephalic Neck: Yes: Trachea Midline Cardiovascular: Yes: Regular Rate and Rhythm. No: Tachycardia Respiratory: Yes: Regular, CTA Bilaterally Gastrointestinal: Yes: Normal Bowel Sounds, Soft. No: Palpable Mass, Tenderness ...Rectal Exam: Yes: Deferred Renal/: Yes: Incontinence. No: [place]unga Present Musculoskeletal: Yes: Joint Stiffness. No: Joint Swelling Extremities: No: Cyanosis, Erythema Integumentary: No: Erythema, Jaundice Neurological: Yes: Alert, Weakness Psychiatric: Yes: Alert Labs: CBC, BMP 08/24/17 09:00 08/24/17 09:00 Imaging - Results Chest X-ray: Report Reviewed, Image Reviewed (I reviewed the images. No free air. no infiltrates.) Cat Scan: Report Reviewed, Image Reviewed (I reviewed the images with the Attending Radiologist. Evidenc of segmental ascending colitis, no evidence of appendicitis, no other acute abdominal pathology.) Ultrasound: Report Reviewed, Image Reviewed (Ultrasound reviewed by me personally. No evidence cholelithiasis, no cholecystitis, no biliary dilatation. ) Problem List - Problems (1) Colitis Assessment/Plan: Received routine consult for 87 yo female patient PMHx sig for Dementia, Diabetes, HTN, bladder cancer who was admitted for increasing confusion from baseline and fever/leukocytosis. Exam reveals stable vitals, elevated WBC, with an unremarkable U/A, neg CXR. Patient alert, somewhat disoriented but apparently at abseline. Abdominal exam completely benign. US ordered which was negative for gallbladder/biliary pathology. CT scan reveals a segmental colitis of unknwon etiology, possibly viral. NO evidence of C diff colitis. No evidence of an acute surgical problem. No need for surgical intervention. Recommend advancing diet. Change to PO ABx. Follow up with GI. Code(s): K52.9 - NONINFECTIVE GASTROENTERITIS AND COLITIS, UNSPECIFIED (2) Abdominal pain Assessment/Plan: Exam revealed complete resolution of abdominal pain, vitals remain stable WBC decreasing. Patient had BM's with bowel regimen. Abdominal exam benign. Agree with advancing diet. Continue bowel regimen at home. Code(s): R10.9 - UNSPECIFIED ABDOMINAL PAIN (3) Altered mental status Assessment/Plan: Patient seems to be at baseline. Alert and oriented to person and place. Code(s): R41.82 - ALTERED MENTAL STATUS, UNSPECIFIED Qualifiers: Altered mental status type: unspecified Qualified Code(s): R41.82 - Altered mental status, unspecified (4) Constipation Assessment/Plan: Patient had BM's with bowel regimen. Agree with advancing diet. Continue bowel regimen at home. Code(s): K59.00 - CONSTIPATION, UNSPECIFIED
== END 2017-08-24 18:08 | disposition home health service (06) | DRG 871 ==
LOC: JER 16:01 → JERBED 21:16 → J6S 08-23 01:44
PROVIDERS: ADMIT Internal Medicine; ATTEND Hospitalist
DX: A41.9 Sepsis, unspecified organism (principal); G93.41 Metabolic encephalopathy; G92 Toxic encephalopathy; N17.9 Acute kidney failure, unspecified; A09 Infectious gastroenteritis and colitis, unspecified; I10 Essential (primary) hypertension; R41.82 Altered mental status, unspecified; D72.829 Elevated white blood cell count, unspecified; K59.00 Constipation, unspecified; F03.90 Unspecified dementia, unspecified severity, without behavioral disturbance, psychotic disturbance, mood disturbance, and anxiety; I25.10 Atherosclerotic heart disease of native coronary artery without angina pectoris; Z95.1 Presence of aortocoronary bypass graft; R62.7 Adult failure to thrive; E11.9 Type 2 diabetes mellitus without complications; K56.41 Fecal impaction; E86.0 Dehydration
CPT/HCPCS: 36415; 70450-TC; 71045-TC-FY; 71046-TC-FY; 74176-TC; 76705-TC; 80053; 81003; 81015; 82962; 83605; 83735; 84100; 85025; 87040; 87086; 93005; 93010; 93306-TC; 97116-GP; 97161-GP; 99284-25; J1644; J7030

== ENCOUNTER 2017-08-27 19:10 | Emergency (ER) | payer BC, OTHER ==
[2017-08-27 19:40] VITALS: BP 135/64; PULSE 73; TEMP 98.3; BMI 26.8
--- NOTE | 2017-08-27 19:51 | PDOC ---
History of Present Illness - General History Source: Patient Exam Limitations: No Limitations - History of Present Illness Initial Comments: 08/27/17 19:52 The patient is a 87 year old female, with a significant PMH of frequent UTIs, CAD s/p quadruple bypass, hypertension, DM, mild dementia, right hip surgery, bladder cancer s/p resection who presents to the emergency department s/p mechanical fall at approximately 6:40PM today. The daughter is at bedside and providing most of the history. As per the daughter, the patient was opening her walker on a wooden porch when she suddenly fell sideways hitting her right buttock on the ground and the the back of her head on a wooden pole. The daughter states the patient is currently at her baseline mental status. The patient denies LOC. The patient denies palpitations, chest pain, or dizziness prior to her fall. Patient is on aspirin but denies taking any other blood thinners. The patient denies chest pain, shortness of breath, headache and dizziness. Denies fever, chills, nausea, vomit, diarrhea and constipation. Denies dysuria, frequency, urgency and hematuria. Allergies: NKA Past surgical history: Right hip surgery. Social history: No reported drug, cigarette, or alcohol use. PCP: Dr. Armendariz <Heather Guadarrama - Last Filed: 08/27/17 19:52> <Stacy Lira - Last Filed: 08/28/17 06:33> - General Chief Complaint: Injury Stated Complaint: FALL Time Seen by Provider: 08/27/17 19:13 Past History <Heather Guadarrama - Last Filed: 08/27/17 19:52> - Past Medical History Cancer: Yes (bladder) Cardiac Disorders: Yes COPD: No DVT: Yes (1970'S/PHLEBITIS) Dementia: Yes (MILD?) Diabetes: Yes HTN: Yes - Surgical History Appendectomy: Yes Cardiac Surgery: Yes (QUAD BYPASS 1995) - Immunization History Immunization Up to Date: Yes (FLU 2012-) - Suicide/Smoking/Psychosocial Hx Smoking History: Never smoked Have you smoked in the past 12 months: No Number of Cigarettes Smoked Daily: 0 Information on smoking cessation initiated: No Hx Alcohol Use: No Drug/Substance Use Hx: No Substance Use Type: None Hx Substance Use Treatment: No <Stacy Lira - Last Filed: 08/28/17 06:33> - Past Medical History Allergies/Adverse Reactions: Allergies Allergy/AdvReac Type Severity Reaction Status Date / Time No Known Allergies Allergy Verified 08/27/17 19:12 Home Medications: Ambulatory Orders Isosorbide Mononitrate [Imdur -] 60 mg PO DAILY 02/04/16 Metformin HCl [Metformin HCl ER] 500 mg PO BID 02/04/16 Metoprolol Succinate [Toprol Xl] 50 mg PO HS 02/04/16 Lisinopril [Prinivil] 20 mg PO DAILY tablet 02/07/16 Aspirin [ASA -] 81 mg PO DAILY #30 tab.chew 08/24/17 Polyethylene Glycol 3350 [Miralax (For Daily Use) -] 17 gm PO BID 7 Days #1 bottle 08/24/17 Sennosides [Senna] 2 tab PO DAILY #14 tablet 08/24/17 levoFLOXacin [Levaquin -] 500 mg PO DAILY #7 tablet 08/24/17 metroNIDAZOLE [Flagyl -] 500 mg PO TID #21 tablet 08/24/17 Review of Systems - Review of Systems Able to Perform ROS?: Yes Comments:: 08/27/17 20:01 GENERAL/CONSTITUTIONAL: No fever or chills. No weakness. HEAD, EYES, EARS, NOSE AND THROAT: No change in vision. No ear pain or discharge. No sore throat. CARDIOVASCULAR: No chest pain or shortness of breath. RESPIRATORY: No cough, wheezing, or hemoptysis. GASTROINTESTINAL: No nausea, vomiting, diarrhea or constipation. GENITOURINARY: No dysuria, frequency, or change in urination. MUSCULOSKELETAL: (+) Mild right buttock pain s/p mechanical fall. No joint swelling or pain. No neck or back pain. SKIN: No rash NEUROLOGIC: No headache, vertigo, loss of consciousness, or change in strength/ sensation. ENDOCRINE: No increased thirst. No abnormal weight change. HEMATOLOGIC/LYMPHATIC: No anemia, easy bleeding, or history of blood clots. ALLERGIC/IMMUNOLOGIC: No hives or skin allergy. <Heather Guadarrama - Last Filed: 08/27/17 19:52> *Physical Exam - Vital Signs Last Vital Signs Temp Pulse Resp BP Pulse Ox 98.3 F 73 16 135/64 100 08/27/17 19:20 08/27/17 19:20 08/27/17 19:20 08/27/17 19:20 08/27/17 19:20 - Physical Exam Comments: 08/27/17 20:03 ADULT EXAM GENERAL: Awake, alert, and fully oriented, in no acute distress HEAD: No signs of trauma EYES: PERRLA, EOMI, sclera anicteric, conjunctiva clear ENT: Auricles normal inspection, hearing grossly normal, nares patent, oropharynx clear without exudates. Moist mucosa NECK: Normal ROM, supple, no lymphadenopathy, JVD, or masses LUNGS: Breath sounds equal, clear to auscultation bilaterally. No wheezes, and no crackles HEART: Regular rate and rhythm, normal S1 and S2, no murmurs, rubs or gallops ABDOMEN: Soft, nontender, normoactive bowel sounds. No guarding, no rebound. No masses BACK: No spinal tenderness. EXTREMITIES: Normal range of motion, no edema. No clubbing or cyanosis. No cords, erythema, or tenderness NEUROLOGICAL: Cranial nerves II through XII grossly intact. Normal speech, normal gait SKIN: Warm, Dry, normal turgor, no rashes or lesions noted. <Heather Guadarrama - Last Filed: 08/27/17 19:52> - Vital Signs Last Vital Signs Temp Pulse Resp BP Pulse Ox 98.3 F 73 16 135/64 100 08/27/17 19:20 08/27/17 19:20 08/27/17 19:20 08/27/17 19:20 08/27/17 19:20 <Stacy Lira - Last Filed: 08/28/17 06:33> ED Treatment Course - RADIOLOGY Radiology Studies Ordered: Category Date Time Status CERVICAL SPINE CT W/O CONTR [CT] Stat CT Scan 08/27/17 19:[address] WITHOUT CONTRAST [CT] Stat CT Scan 08/27/17 19:46 Ordered HIP-RIGHT [RAD] Stat Radiology 08/27/17 19:46 Ordered <Stacy Lira - Last Filed: 08/28/17 06:33> Medical Decision Making - Medical Decision Making <Heather Guadarrama - Last Filed: 08/27/17 19:52> - Medical Decision Making 08/27/17 19:50 Pt seen/examined. 87F s/p mechanical fall onto R buttock with headstrike. No LOC , currently at baseline MS. On asa, no other a/c. Good ROM bilat LE, nontender spine, abd soft/nt/nd. - R hip XR - CTH/C spine - not currently requesting pain meds - reassess 08/27/17 21:36 Imaging reviewed, no acute findings. Will inform her of the non-acute findings including thyroid nodule and recommend f/u with PCP. Advised pt and her daughter of return instructions - advised to return to ED if change in mental status, vomiting, headache. Ambulating well, dc home with daughter. <Stacy Lira - Last Filed: 08/28/17 06:33> *DC/Admit/Observation/Transfer - Attestations Scribe Attestion: 08/27/17 20:04 Documentation prepared by Heather Guadarrama, acting as medical interpreter for Stacy Lira DO. <Heather Guadarrama - Last Filed: 08/27/17 19:52> - Discharge Dispostion Decision to Admit order: No <Stacy Lira - Last Filed: 08/28/17 06:33> Diagnosis at time of Disposition: Accident due to mechanical fall without injury - Discharge Dispostion Disposition: HOME Condition at time of disposition: Stable - Referrals Referrals: Jaswant Armendariz MD [Primary Care Provider] - - Patient Instructions Printed Discharge Instructions: How to Prevent Falls Additional Instructions: Please follow up with your primary care doctor. There is a small thyroid nodule which was found on your CT, please let your primary care doctor know. Return to the ER if you have worsening headache, confusion, vomiting or other concerning symptoms. - Post Discharge Activity
== END 2017-08-27 22:12 | disposition home or self-care (01) ==
LOC: FER 19:10
DX: Z04.3 Encounter for examination and observation following other accident (principal); W18.39XA Other fall on same level, initial encounter; Y93.89 Activity, other specified; Y92.003 Bedroom of unspecified non-institutional (private) residence as the place of occurrence of the external cause; Z85.51 Personal history of malignant neoplasm of bladder; Z85.89 Personal history of malignant neoplasm of other organs and systems; F03.90 Unspecified dementia, unspecified severity, without behavioral disturbance, psychotic disturbance, mood disturbance, and anxiety; E11.9 Type 2 diabetes mellitus without complications; I10 Essential (primary) hypertension
CPT/HCPCS: 70450-TC; 71045-TC-FY; 72125-TC; 73502-TC-RT; 99281-25

== ENCOUNTER 2017-10-10 14:52 | Emergency (ER) | payer BC, OTHER ==
[2017-10-10 15:19] VITALS: BMI 25.4
--- NOTE | 2017-10-10 16:12 | PDOC ---
History of Present Illness - General Chief Complaint: Weakness Stated Complaint: Weakness Time Seen by Provider: 10/10/17 16:09 - History of Present Illness Initial Comments: 10/10/17 17:40 87F with pmh of quadruple bypass, Bladder cancer, dementia and diabetes presents to the ED for AMS, weakness, lethargy for the past 3-4 hours, as per christoph and lexa. Patient was at baseline yesterday but after interacting with aide and daughter was found to be very lethargic, slow to arouse and difficult to wake up from her nap. Recently seen in our ED and admitted and treated for UTI. 10/10/17 17:53 Past History - Past Medical History Allergies/Adverse Reactions: Allergies Allergy/AdvReac Type Severity Reaction Status Date / Time No Known Allergies Allergy Verified 10/10/17 15:11 Home Medications: Ambulatory Orders Aspirin [Ecotrin] 81 mg PO DAILY 09/30/17 Isosorbide Mononitrate [Isosorbide Mononitrate ER] 60 mg PO DAILY 09/30/17 Lisinopril [Prinivil] 20 mg PO DAILY 09/30/17 Metformin HCl [Metformin HCl ER] 500 mg PO BID 09/30/17 Metoprolol Succinate [Toprol XL -] 50 mg PO DAILY 09/30/17 Cancer: Yes (bladder) Cardiac Disorders: Yes COPD: No DVT: Yes (1970'S/PHLEBITIS) Dementia: Yes (MILD?) Diabetes: Yes HTN: Yes - Surgical History Appendectomy: Yes Cardiac Surgery: Yes (QUAD BYPASS 1995) - Immunization History Immunization Up to Date: Yes (FLU ) - Suicide/Smoking/Psychosocial Hx Smoking History: Never smoked Have you smoked in the past 12 months: No Number of Cigarettes Smoked Daily: 0 Hx Alcohol Use: No Drug/Substance Use Hx: No Substance Use Type: None Hx Substance Use Treatment: No Review of Systems - Review of Systems Able to Perform ROS?: No (demented) *Physical Exam - Vital Signs Last Vital Signs Temp Pulse Resp BP Pulse Ox 97.8 F 65 18 143/73 99 10/10/17 15:10 10/10/17 15:10 10/10/17 15:10 10/10/17 15:10 10/10/17 15:10 - Physical Exam General Appearance: Yes: Nourished, Appropriately Dressed. No: Apparent Distress HEENT: positive: EOMI, DIEGO, Normal ENT Inspection Respiratory/Chest: positive: Lungs Clear, Normal Breath Sounds. negative: Chest Tender, Respiratory Distress Cardiovascular: positive: Regular Rhythm, Regular Rate, S1, S2 Gastrointestinal/Abdominal: positive: Normal Bowel Sounds, Flat, Soft. negative : Tender Musculoskeletal: positive: Normal Inspection. negative: CVA Tenderness Extremity: positive: Normal Capillary Refill, Normal Inspection, Normal Range of Motion Integumentary: positive: Dry, Pale ED Treatment Course - LABORATORY CBC & Chemistry Diagram: 10/10/17 16:57 10/10/17 16:57 Medical Decision Making - Medical Decision Making 10/10/17 17:[address]: pending ekg: Sinus rhythm with short MA Basic labs CXR: pendiong Will investigate source of ams infection (UTI, pneumonia) vs Metabolic disturbance, anemia vs cva, neoplasm/ metastasis 10/10/17 19:52 No sign of infection on labs, no leukocytosis, UA negative. No changes on CT, nor on Xray. Will discharge and follow outpatient. *DC/Admit/Observation/Transfer Diagnosis at time of Disposition: Altered mental status - Discharge Dispostion Disposition: HOME Condition at time of disposition: Stable Decision to Admit order: No - Referrals Referrals: Jaswant Armendariz MD [Primary Care Provider] - - Patient Instructions Printed Discharge Instructions: DI for Altered Mental Status Additional Instructions: Come back to the emergency Department for any new, worsening or concerning symptom. Follow up with your primary care provider within 2-3 days. - Post Discharge Activity
--- NOTE | 2017-10-10 17:11 | PDOC ---
Attending Attestation - Resident Resident Name: MeyerDavid - ED Attending Attestation I have performed the following: I have examined & evaluated the patient, The case was reviewed & discussed with the resident, I agree w/resident's findings & plan, Exceptions are as noted - Medical Decision Making 10/10/17 17:11 I, Dr. Elyssa Floyd, DO, attest that this document has been prepared under my direction and personally reviewed by me in its entirety. I further attest, that it accurately reflects all work, treatment, procedures and medical decision -making performed by me. 10/10/17 17:50 a/p: 87yo female with increased sleepiness over the last week -dx with intestinal infection in August and then a UTI a few weeks ago -saw urology on Saturday - had cystoscope that was negative for bladder ca changes -now with increasing sleepiness and decreased PO intake today -difficult to arouse -improved at this time of exam without acute findings except mild ttp over the bladder -will send labs, ua, ucx, head ct, cxr, ekg -if all negative or mild UTI will treat outpt -discussed plan with the fam and custom seamstress at the bedside -currently at baseline MS -pt with hx of dementia 10/10/17 19:[address] negative labs reviewed no uti pt at baseline ms cxr clear stable for d/c to home <Elyssa Floyd - Last Filed: 10/10/17 19:56> - HPI HPI: 10/10/17 17:31 The patient is an 87 year old female with history of dementia, hypertension, DM , CAD s/p quadruple bypass, bladder CA s/p resection, who presents to the ED with health aide and daughter at bedside for AMS. Per daughter and aide, the patient woke from a nap and seemed more confused than her baseline. They state she has appeared to be more sleepy generally weak over the past several days. No fever or chills. She was recently admitted to hospital earlier this month for a UTI, treated with Ceftriaxone, discharged 10/02/17. - Physicial Exam PE: 10/10/17 18:03 Constitutional: Awake and alert. Oriented x 0. Pleasantly demented. Head: Normocephalic. Atraumatic Eyes: PERRL. EOMI. Conjunctivae are not pale. ENT: Mucous membranes are moist and intact. Posterior pharynx without exudates or erythema. Uvula midline. Neck: Supple. Full ROM. No lymphadenopathy. Cardiovascular: Regular rate. Regular rhythm. +Systolic ejection murmur. Distal pulses are 2+ and symmetric. Pulmonary/Chest: No evidence of respiratory distress. Clear to auscultation bilaterally No wheezing, rales or rhonchi. Abdominal: +Mild suprapubic tenderness to palpation. Soft and non-distended. No rebound, guarding or rigidity. No organomegaly. No palpable masses. Good bowel sounds. Back: No CVA tenderness. Musculoskeletal: No edema. No cyanosis. No clubbing. Full range of motion in all extremities. Nocalf tenderness. Radial/pedal pulses are intact and 2+ bilaterally Skin: Skin is warm and dry. No petechiae. No purpura. Neurological: Oriented x 0. Cranial nerves II-XII are grossly intact. Normal speech. Strength is grossly symmetric. No sensory deficits. Gait deferred. Psychiatric: Good eye contact. Normal interaction, affect and behavior. - Medical Decision Making 10/10/17 18:04 Documentation prepared by Donita Martinez, acting as remote medical coder for Elyssa Floyd DO. <Donita Martinez - Last Filed: 10/10/17 20:12> Heart Score/ECG Review - ECG Intrepretation Comment:: 10/10/17 17:47 sinus at 68, nl axis, nl interval, no acute st/t wave findings <Elyssa Floyd - Last Filed: 10/10/17 19:56>
[2017-10-10 17:19] LABS: EOS % 8.8 % (0-4.5); HEMATOCRIT 30.9 % (32.4-45.2); HEMOGLOBIN 10.2 GM/dL (10.7-15.3); LYMPH % 22.1 % (8-40); MCH 29.8 pg (25.7-33.7); MEAN CELL VOLUME 90.4 fl (80-96); MEAN PLT VOLUME 10.2 fl (7.5-11.1); MONO % 8.7 % (3.8-10.2); NEUT % 59.4 % (42.8-82.8); PLATELET COUNT 214 K/MM3 (134-434); RBC 3.42 M/mm3 (3.60-5.2); RDW 14.2 % (11.6-15.6); WHITE BLOOD COUNT 6.7 K/mm3 (4.0-10.0)
[2017-10-10 17:27] LABS: URINE APPEARANCE CLEAR; URINE BILIRUBIN NEGATIVE (<2.0 mg/dL); URINE COLOR YELLOW; URINE GLUCOSE (UA) NEGATIVE (NEGATIVE); URINE KETONE NEGATIVE (NEGATIVE); URINE LEUK ESTERASE NEGATIVE (NEGATIVE); URINE NITRITE NEGATIVE (NEGATIVE); URINE PROTEIN NEGATIVE (NEGATIVE); URINE UROBILINOGEN NEGATIVE mg/dL (0.2-1.0)
[2017-10-10 17:38] LABS: ANION GAP 7 (8-16); BLOOD UREA NITROGEN 35 mg/dL (7-18); CALCIUM 9.1 mg/dL (8.5-10.1); CHLORIDE 106 mmol/L (98-107); CO2 28 mmol/L (21-32); CREATININE 1.2 mg/dL (0.55-1.02); GLUCOSE,RANDOM 93 mg/dL (74-106); SODIUM 141 mmol/L (136-145); TOT PROT 6.5 g/dl (6.4-8.2)
[2017-10-10 17:39] LABS: ALBUMIN 3.6 g/dl (3.4-5.0); ALK PHOS 83 U/L (45-117); BILIRUBIN,TOTAL 0.3 mg/dL (0.2-1.0); SGOT/AST 13 U/L (15-37); SGPT/ALT 16 U/L (12-78)
[2017-10-10 19:05] LABS: EPI CELLS RARE /HPF (FEW); URINE BACTERIA RARE /hpf (NONE SEEN); URINE HYALINE CAST 3 /lpf
[2017-10-10 20:33] VITALS: BP 132/71; PULSE 65; TEMP 98.2
--- NOTE | 2017-10-11 11:33 | EKG ---
Test Reason : Blood Pressure : / mmHG Vent. Rate : 068 BPM Atrial Rate : 068 BPM P-R Int : 108 ms QRS Dur : 098 ms QT Int : 424 ms P-R-T Axes : 041 -25 043 degrees QTc Int : 450 ms SINUS RHYTHM WITH SHORT [place] MINIMAL VOLTAGE CRITERIA FOR LVH, MAY BE NORMAL VARIANT SEPTAL INFARCT (CITED ON OR BEFORE 04-FEB-2016) ABNORMAL ECG WHEN COMPARED WITH ECG OF 30-SEP-2017 11:58, QUESTIONABLE CHANGE IN INITIAL FORCES OF SEPTAL LEADS Confirmed by ANGELO RASHID, DONTA ([id number]) on 10/11/2017 11:33:27 AM Referred By: Confirmed By:DONTA STEPHENS MD
== END 2017-10-10 20:31 | disposition home or self-care (01) ==
LOC: JER 14:52
DX: R41.82 Altered mental status, unspecified (principal); I25.10 Atherosclerotic heart disease of native coronary artery without angina pectoris; Z95.1 Presence of aortocoronary bypass graft; I10 Essential (primary) hypertension; E11.9 Type 2 diabetes mellitus without complications; Z79.84 Long term (current) use of oral hypoglycemic drugs; F03.90 Unspecified dementia, unspecified severity, without behavioral disturbance, psychotic disturbance, mood disturbance, and anxiety; Z85.51 Personal history of malignant neoplasm of bladder; Z79.82 Long term (current) use of aspirin
CPT/HCPCS: 36415; 70450-TC; 71045-TC-FY; 80053; 81003; 81015; 84484; 85025; 87086; 87186; 93005; 93010; 99282-25

== ENCOUNTER 2017-12-25 18:36 | Emergency (ER) | payer BC, OTHER ==
[2017-12-25 18:50] VITALS: BMI 24.1
--- NOTE | 2017-12-25 18:54 | PDOC ---
History of Present Illness - General Chief Complaint: Injury Stated Complaint: Injury Time Seen by Provider: 12/25/17 18:47 - History of Present Illness Initial Comments: 12/25/17 18:53 87 yo F with h/o HTN, DM, CAD s/p quadruple bypass, hypertension, mild dementia , right hip surgery, bladder cancer s/p resection who p/w lower back pain s/p fall. Per patient daughter at bedside, patient was ambulating with walker up driveway at approximately 6:00 PM this evening, and lost her balance. This caused patient to shuffle backwards and fall onto asphalt, landing on her "tailbone," from about 2 feet. Patient states that fall not triggered. Fall was witnessed by daughter, who denies head/neck trauma, LOC. Pt. BIBA and on ground 30 minutes. Has not ambulated following event. Patient currently denies pain. On Daily ASA 81 mg. Otherwise denies AC. Similar presentation (09/30/17) [facility] admission following fall with GALO, UTI, dehydration. Per daughter and patient, symptoms have since resolved from prior encounter, and patient in normal state of health. Patient denies N/V, F,C, cough, wheezing, palpitations, PND, Orthopnea, CP, SOB , urinary complaints, perianal parasthesia, abdominal pain, diarrhea, constipation, lightheadedness, weakness, sensory changes. PMHx: as noted above ROS: as noted SHx: Denies Etoh, tobacco use, IVDA Allergies:NKDA Past History - Past Medical History Allergies/Adverse Reactions: Allergies Allergy/AdvReac Type Severity Reaction Status Date / Time No Known Allergies Allergy Verified 12/25/17 18:50 Home Medications: Ambulatory Orders Aspirin [Ecotrin] 81 mg PO DAILY 09/30/17 Isosorbide Mononitrate [Isosorbide Mononitrate ER] 60 mg PO DAILY 09/30/17 Lisinopril [Prinivil] 20 mg PO DAILY 09/30/17 Metformin HCl [Metformin HCl ER] 500 mg PO BID 09/30/17 Metoprolol Succinate [Toprol XL -] 50 mg PO DAILY 09/30/17 Nitrofurantoin Monohyd/M-Cryst [Macrobid -] 100 mg PO BID #14 capsule 10/14/17 Cancer: Yes (bladder) Cardiac Disorders: Yes COPD: No DVT: Yes (1970'S/PHLEBITIS) Dementia: Yes (MILD?) Diabetes: Yes HTN: Yes - Surgical History Appendectomy: Yes Cardiac Surgery: Yes (QUAD BYPASS 1995) - Immunization History Immunization Up to Date: Yes (FLU ) - Suicide/Smoking/Psychosocial Hx Smoking History: Never smoked Have you smoked in the past 12 months: No Number of Cigarettes Smoked Daily: 0 Hx Alcohol Use: No Drug/Substance Use Hx: No Substance Use Type: None Hx Substance Use Treatment: No Review of Systems - Review of Systems Comments:: 12/25/17 18:53 GENERAL/CONSTITUTIONAL: No fever or chills. No weakness. HEAD, EYES, EARS, NOSE AND THROAT: No change in vision. No ear pain or discharge. No sore throat. CARDIOVASCULAR: No chest pain or shortness of breath RESPIRATORY: No cough, wheezing, or hemoptysis. GASTROINTESTINAL: No nausea, vomiting, diarrhea or constipation. GENITOURINARY: No dysuria, frequency, or change in urination. MUSCULOSKELETAL: No joint or muscle swelling or pain. No neck or back pain. SKIN: No rash NEUROLOGIC: No headache, vertigo, loss of consciousness, or change in strength/ sensation. ENDOCRINE: No increased thirst. No abnormal weight change HEMATOLOGIC/LYMPHATIC: No anemia, easy bleeding, or history of blood clots. ALLERGIC/IMMUNOLOGIC: No hives or skin allergy. *Physical Exam - Vital Signs Last Vital Signs Temp Pulse Resp BP Pulse Ox 97.7 F 64 18 161/67 96 12/25/17 18:45 12/25/17 18:45 12/25/17 18:45 12/25/17 18:45 12/25/17 18:45 - Physical Exam Comments: 12/25/17 18:53 GENERAL: Awake, alert, and fully oriented, in no acute distress HEAD: No signs of trauma, normocephalic, atraumatic EYES: PERRLA, EOMI, sclera anicteric, conjunctiva clear ENT: Auricles normal inspection, hearing grossly normal, nares patent, oropharynx clear without exudates. Moist mucosa NECK: Normal ROM, supple, no lymphadenopathy, JVD, or masses LUNGS: No distress, speaks full sentences, clear to auscultation bilaterally HEART: Regular rate and rhythm, normal S1 and S2, no murmurs, rubs or gallops, peripheral pulses normal and equal bilaterally. ABDOMEN: Soft, nontender, normoactive bowel sounds. No guarding, no rebound. No masses EXTREMITIES : Normal inspection, Normal range of motion, no edema. No clubbing or cyanosis. NEUROLOGICAL: Cranial nerves II through XII grossly intact. Normal speech, no focal sensorimotor deficits. Patient ambulates with assistance at bedside. SKIN: Warm, Dry, normal turgor, no rashes or lesions noted Medical Decision Making - Medical Decision Making 12/25/17 19:27 87 yo F with h/o HTN, DM, CAD s/p quadruple bypass, hypertension, mild dementia , right hip surgery, bladder cancer s/p resection who p/w lower back pain s/p fall. BP 161/67, vtials otherwise wnl. Physical exam unremarkable. No evidence of head trauma. Low suspicion skull fracture, hemorrhage, hematoma. No evidence of basilar skull fracture. C-Spine neg per [facility] Criteria. Will reassess. Ed Course: 12/25/17 20:14 Patient ambulating without difficultly at bedside with minimal assistance of Dr. Floyd. 12/25/17 20:18 Patient stable for d/c with return precautions. Advised to f/u with PMD. *DC/Admit/Observation/Transfer Diagnosis at time of Disposition: Fall Qualifiers: Encounter type: initial encounter Qualified Code(s): W19.XXXA - Unspecified fall, initial encounter - Discharge Dispostion Condition at time of disposition: Stable - Referrals Referrals: Jaswant Armendariz MD [Primary Care Provider] - - Patient Instructions Printed Discharge Instructions: How to Prevent Falls Additional Instructions: Please return to the emergency department with any new or worsening symptoms or concerns. Please follow up with your primary care physician within 72 hours. - Post Discharge Activity - Attestations Physician Attestion: 12/25/17 18:53 I attest to the information provided in this note.
--- NOTE | 2017-12-25 18:57 | PDOC ---
Attending Attestation - [facility] HPI: 12/25/17 20:06 The patient is a 87 year old female presenting with her daughter, with a significant past medical history of HTN, DM, CAD s/p quadruple bypass, mild dementia, right hip surgery, bladder cancer s/p resection, who presents to the ED after a fall complaining for lower back pain. Her daughter notes that the patient was ambulating with a walker at 6pm and lost her balance and she landed on her tailbone. The fall was witnessed by the daughter, who denies head/neck trauma or LOC. On Daily ASA 81 mg. The patient had a similar presentation on () and was admitted with GALO, UTI, dehydration at [place]. The patient denies chest pain, shortness of breath, headache and dizziness. Denies fever, chills, nausea, vomiting, diarrhea or constipation. Denies dysuria , frequency, urgency and hematuria. Allergies: None Past surgical history: Appendectomy, Quadruple bypass (1995) Social History: No alcohol, tobacco or drug use reported - Physicial Exam PE: 12/25/17 20:07 Constitutional: Awake, alert, oriented. No acute distress. Head: Normocephalic. Atraumatic Eyes: PERRL. EOMI. Conjunctivae are not pale. ENT: Mucous membranes are moist and intact. Posterior pharynx without exudates or erythema. Uvula midline. Neck: Supple. Full ROM. No lymphadenopathy. Cardiovascular: Regular rate. Regular rhythm. S1, S2 regular. Distal pulses are 2+ and symmetric. Pulmonary/Chest: No evidence of respiratory distress. Clear to auscultation bilaterally No wheezing, rales or rhonchi. Abdominal: Soft and non-distended. There is no tenderness. No rebound, guarding or rigidity. No organomegaly. No palpable masses. Good bowel sounds. Back: No CVA tenderness. Musculoskeletal: No edema. No cyanosis. No clubbing. Full range of motion in all extremities. Nocalf tenderness. Radial/pedal pulses are intact and 2+ bilaterally Skin: Skin is warm and dry. No petechiae. No purpura. Neurological: Alert and oriented to person, place, and time. Cranial nerves II -XII are grossly intact. Normal speech. Strength is grossly symmetric. No sensory deficits. Psychiatric: Good eye contact. Normal interaction, affect and behavior. <Losherylert,Dhiraj Staci - Last Filed: 12/25/17 20:06> - Resident Resident Name: Ronald Sosa - ED Attending Attestation I have performed the following: I have examined & evaluated the patient, The case was reviewed & discussed with the resident, I agree w/resident's findings & plan, Exceptions are as noted - Medical Decision Making 12/25/17 18:57 I, Dr. Elyssa Floyd, DO, attest that this document has been prepared under my direction and personally reviewed by me in its entirety. I further attest, that it accurately reflects all work, treatment, procedures and medical decision -making performed by me. 12/25/17 20:16 87yo female with mechanical fall at home -landed on her buttock -walks with a walker -pt without bony tenderness, no cp/sob/lightheaded/dizziness -fell backward trying to weed the lawn -no head injury -witness by her daughter -ambulates -daughter stated pt has been doing better than her baseline -stable for d/c to home <Elyssa Floyd - Last Filed: 12/25/17 20:18>
[2017-12-25] MEDS ORDERED: ACETAMINOPHEN INJECTION 100 ML IVPB ONE (19:34)
[2017-12-25] MEDS ORDERED: VANCOMYCIN 1 GRAM (PRE-DOCKED) 1,000 MG/250 ML BAG IVPB ONE (19:35)
[2017-12-25 20:33] VITALS: BP 152/62; PULSE 68; TEMP 97.8
== END 2017-12-25 20:25 | disposition home or self-care (01) ==
LOC: JER 18:36
DX: M54.5 Low back pain (principal); W17.89XA Other fall from one level to another, initial encounter; Y93.89 Activity, other specified; Y92.009 Unspecified place in unspecified non-institutional (private) residence as the place of occurrence of the external cause; E11.9 Type 2 diabetes mellitus without complications; I10 Essential (primary) hypertension; I25.10 Atherosclerotic heart disease of native coronary artery without angina pectoris; Z85.51 Personal history of malignant neoplasm of bladder; F03.90 Unspecified dementia, unspecified severity, without behavioral disturbance, psychotic disturbance, mood disturbance, and anxiety; Z86.718 Personal history of other venous thrombosis and embolism; Z79.82 Long term (current) use of aspirin
CPT/HCPCS: 99282-25